=== PATIENT | male | born 1935 | race Caucasian/White ===

== ENCOUNTER 2025-02-18 14:04 | Inpatient (IN) | payer MEDICARE, SELFPAY ==
--- NOTE | ~2025-02-18 | XR_ITS ---
EXAMINATION: XR surgery orthopedic DATE: 02/20/2025 12:21 INDICATION: Cystoscopy TECHNIQUE: Single frontal fluoroscopic image of the pelvis was obtained during procedure performed by Dr. Coles. Radiologist was not present for the imaging or procedure. The amount of fluoroscopy time used during this procedure was 0.1 minutes. Total DAP was 0.342 mGym^2. COMPARISON: None. FINDINGS: Partially visualized right total hip arthroplasty. Moderate bilateral sacroiliac osteoarthr itis. IMPRESSION: 1. Fluoroscopy utilized for reported cystoscopy. See procedure note for further detail. Reviewed, dictated and finalized at location A.
--- NOTE | 2025-02-18 16:08 | P.HP_ITS ---
H&P: HPI History of Present Illness Date/Time: 02/18/25 16:08 Chief Complaint: Hematuria Narrative: 89 y/o M with PMH of diabetes, hypothyroidism, COPD, sick sinus syndrome, PE/DVT (2021), CKD stage 3, and HFpEF presents here with hematuria. The patient presented to [facility] in [place] in 02/17/25 for hematuria. He reports he 1st noticed the blood in his urine on Tuesday or Tuesday, unsure which 1. Upon arrival to the OSH, the patient was bladder scanned which showed greater than [address] [place]oit was placed for continuous bladder irrigation. CT showed a possible mass in the bladder. CBI was continued overnight and the patient and his hemoglobin remained stable. Patient was briefly trialed off CBI this morning, however hematuria returned. Urology was contacted at [facility] who was agreeable to transfer for a cystoscopy. Follows with Sanket COLE for his urological care. The patient currently has no complaints. He denies fever, chills, body aches, suprapubic pain, or abdominal pain at present. Of note, the patient had recent perforated cholecystitis and was admitted to [facility] in [place] from [id number]. Treated with Zosyn and had a percutaneous cholecystostomy drainage catheter placed. Plan for general surgery follow-up on 02/[address] scan and to determine the next steps in his care. The patient reports no knowledge of bladder cancer, however reported at the OSH that there was a bladder spot that was being monitored. VS upon arrival: 98.6, HR 69, R 20, 133/56, and 92% on room air. Review of Systems Review of Systems: All systems reviewed & are unremarkable except as noted in HPI and below [facility] Past Medical History Medical History History of pulmonary embolism Pacemaker 2021 COPD (chronic obstructive pulmonary disease) BPH (benign prostatic hyperplasia) Anxiety and depression Diverticulosis Type 2 diabetes mellitus with chronic kidney disease History of blood clots 2021 RON on CPAP Chronic pain Sleep apnea Hypothyroidism Obesity Peripheral neuropathy Hx of bladder cancer History of anal fissures Chronic kidney disease (CKD) stage G3b/A2, moderately decreased glomerular filtration rate (GFR) between 30-44 mL/min/1.73 square meter and albuminuria creatinine ratio between 30-299 mg/g Essential hypertension Hyperlipidemia LDL goal <100 Surgical History Surgical History H/O heart surgery 08/25/2022 History of arthroscopy of left shoulder 2004 History of bilateral knee replacement 1998 Hx of carpal tunnel repair 1997 Hx of total shoulder replacement 1996 H/O cardiac catheterization 1994 Hx of right inguinal hernia repair 1993 H/O lithotripsy 1991 History of back surgery 1982 Hx of right knee surgery 1974 Family History Family History Sibling Family history of cataracts Family history of arthritis Family history of Alzheimer's disease Father Family history of arthritis Social History Social History Social History: somewhat confident with medical forms 06/22/34 Smoking status: Never smoker Alcohol intake: never Alcohol use details: socially/occasional Substance use: never Substance use type: does not use Do You Feel Safe in your Home?: Yes Lack of Transportation: No Lack of Food: Never True Current Housing: I Have Housing Concerned About Future Housing: No Difficulty Paying Gas/Electric Bills: No Difficulty Paying for Meds: No Currently Unemployed: No Education: High School Diploma/GED Difficulty w/ Childcare or Family Care: No Living arrangements: with family Occupation/Education: retired Spiritual care concerns: No Agree to blood products: Yes Meds Home Medications and Allergies Home Medications ?Medication ?Instructions ?Recorded ?Confirmed ?Type mecobalamin (vitamin B12) 1,000 500 mcg PO DAILY 12/24/19 02/18/25 History mcg chewable tablet multivitamin 1 tablet PO DAILY 12/24/19 02/18/25 History RELION/TRUE MICRO LANC 33G MIS See Rx Instructions .Route 10/03/20 02/18/25 Rx .COMPLEX #200 ea lancets 33 gauge #300 ea 07/22/21 02/18/25 Rx diphenhydramine 25 0.5 tablet PO QHS PRN pain (scale 12/13/22 02/18/25 History mg-acetaminophen 500 mg tablet score 1-3) (Tylenol PM Extra Strength) loratadine 10 mg tablet 10 mg PO DAILY 12/13/22 02/18/25 History cholecalciferol (vitamin D3) 25 5,000 unit PO DAILY 09/28/23 02/18/25 History mcg (1,000 unit) capsule pen needle, diabetic 31 gauge x #180 ea 12/08/23 02/18/25 Rx 5/16 (BD Ultra-Fine Short Pen Needle) True Metrix Glucose Test Strip See Rx Instructions .Route 09/17/24 02/18/25 Rx (blood sugar diagnostic) .COMPLEX #300 ea blood-glucose meter (True Metrix #1 ea 09/17/24 02/18/25 Rx Air Glucose Meter) amlodipine 5 mg tablet 5 mg PO DAILY #90 tabs 10/18/24 02/18/25 Rx escitalopram oxalate 20 mg tablet 20 mg PO DAILY #90 tabs 10/18/24 02/18/25 Rx furosemide 40 mg tablet 20 mg (1/2 x 40 mg) PO DAILY #90 10/18/24 02/18/25 Rx tabs levothyroxine 75 mcg tablet 75 mcg PO QAM #90 tabs 12/25/24 02/18/25 Rx (Synthroid) isosorbide mononitrate 30 mg 30 mg PO DAILY #90 tabs 01/02/25 02/18/25 Rx tablet,extended release 24 hr apixaban 5 mg tablet (Eliquis) 5 mg PO BID #180 tabs 02/04/25 02/18/25 Rx umeclidinium 62.5 mcg-vilanterol 1 inh inhalation DAILY #60 ea 02/04/25 02/18/25 Rx 25 mcg/actuation powdr for inhalation (Anoro Ellipta) albuterol sulfate 90 mcg/actuation 2 puff inhalation Q6H PRN wheezing 02/18/25 02/18/25 History aerosol inhaler insulin lispro protamine-lispro 26 unit subcut BIDWMEAL 02/18/25 02/18/25 History 100 unit/mL (75-25) subcutaneous pen (Humalog Mix 75-25 KwikPen) magnesium oxide 400 mg (241.3 mg 400 mg PO DAILY 02/18/25 02/18/25 History magnesium) tablet rosuvastatin 40 mg tablet 40 mg PO QHS 02/18/25 02/18/25 History Allergies Allergy/AdvReac Type Severity Reaction Status Date / Time iodine Allergy Unknown Diarrhea Verified 12/24/24 10:52 meperidine Allergy Unknown Difficulty Verified 12/24/24 10:52 Swallowing morphine Allergy Unknown Blurry Verified 12/24/24 10:52 Vision Penicillins Allergy Unknown Itching Verified 12/24/24 10:52 clarithromycin (From Biaxin) AdvReac Mild Unknown Verified 12/24/24 10:52 oxycodone AdvReac Mild UNABLE TO Verified 12/24/24 10:52 URINATE MEPERIDINE HCL Allergy Severe ITCHING Uncoded 12/24/24 10:52 Exam Const: General: comfortable and no acute distress Other: , male, elderly, nontoxic appearance HENMT: Face/Nose/Sinus: Normal nares present Mouth: Yes moist mucous membranes Eyes: General: appearance normal, both eyes and all related structures Sclera: sclerae normal Pupils: Equal, round and reactive pupils present EOM: EOMs intact bilaterally Resp: Effort & Inspection: normal respiratory effort Auscultation: clear to auscultation bilaterally Cardio: Rate: regular rate Rhythm: regular rhythm Other: S1-S2 present without murmur, rub, ectopy GI: Other: Abdomen rounded, nontender, mildly firm. Normoactive bowel sounds in all quadrants. : Other: No suprapubic tenderness. Urinary Catheter: Urinary Catheter: patent and draining and urine clear Skin: General skin exam: normal color and no rashes or lesions noted Wounds: no wounds Neuro: Speech: normal speech Motor exam (neuro): 5/5 motor strength present throughout Sensory Exam: normal sensation Other: Mild somnolence, A&O x3 Extrem: General: normal to inspection Psych: Mental Status: mental status grossly normal Affect: normal affect Other: Fair insight and judgment, pleasant. Assessment and Plan Assessment and plan (1) Hematuria: Qualifiers: Hematuria type: gross Qualified Code(s): R31.0 - Gross hematuria Code(s): R31.9 - Hematuria, unspecified Status: Acute Assessment and Plan: Gross hematuria starting on Tuesday or Tuesday (02/16 v 02/17). CBI overnight 420-02/18, reoccurrence with trial off this morning (02/18) Neurology consulted, plan for cystoscopy Continue CBI CT abd/pelvis, OSH on 02/17/2025, impression: 1. There is a masslike irregular thickening involving the posterior inferior bladder wall; this is probably a bladder tumor and would explain the hematuria. This measures 5.5 x 3.6 x 3.9 cm. Cystoscopy is recommended. Mild dilated left ureter and renal collecting system from the bladder tumor. This may require stenting. 2. Percutaneous gallbladder drain successfully decompressed gallbladder. No significant acute inflammatory changes of the gallbladder. There remains nu merous gallstones. No bile duct dilation or bile duct stone. urine culture obtained at [facility], will need follow-up on results (2) Chronic kidney disease (CKD) stage G3b/A2, moderately decreased glomerular filtration rate (GFR) between 30-44 mL/min/1.73 square meter and albuminuria creatinine ratio between 30-299 mg/g: Code(s): N18.3 - Chronic kidney disease, stage 3 (moderate) Status: Acute Assessment and Plan: History of CKD stage 3. Creatinine 1.75, BUN 26 Trend renal function (3) Type 2 diabetes mellitus with chronic kidney disease: Qualifiers: Chronic kidney disease stage: stage 3 (moderate) Chronic kidney disease stage 3 subtype: stage 3b (GFR 30-44) Diabetes mellitus long term care administrator insulin use: with detention use Qualified Code(s): E11.22 - Type 2 diabetes mellitus with diabetic chronic kidney disease; N18.32 - Chronic kidney disease, stage 3b; Z79.4 - long-term (current) use of insulin Code(s): E11.22 - Type 2 diabetes mellitus with diabetic chronic kidney disease Status: Acute Assessment and Plan: hypoglycemia protocol POC blood glucose ACHS correct regimen ordered - moderate dose TIDWM and HS A1C 12% on 12/24/2024 Follows with Melinda COLE for his Endocrine/Diabetes Care (4) Essential hypertension: Code(s): I10 - Essential (primary) hypertension Status: Acute Assessment and Plan: Chronic, currently 133/56 Continue home medications: Amlodipine 5 mg daily, Lasix 50 mg daily, Imdur ER 30 mg daily Monitor. (5) RON on CPAP: Code(s): G47.33 - Obstructive sleep apnea (adult) (pediatric); Z99.89 - Dependence on other enabling machines and devices Status: Acute Assessment and Plan: Continue home CPAP. Plan Diet: Heart healthy GI Prophylaxis: Not currently indicated DVT Prophylaxis: SCD Lines: Peripheral Code Status: Full code Quality VTE Prophylaxis VTE prophylaxis: mechanical ordered If No VTE Prophylaxis Answer both mechanical and pharmacologic: Reason no pharmacologic proph: medical contraindication active bleeding/bleeding risk Hospitalist MIPS Advance Care Plan I have confirmed that the patient's Advanced Care Plan is present, code status is documented, or surrogate decision maker is listed in patient medical record.: Yes Medication Reconciliation I have utilized all available resources to obtain, update and review the patients current medications (includes all prescriptions, OTC, herbals, cannabis, and nutritional supplements).: Yes
--- OUTSIDE RECORDS SUMMARY | 2025-02-18 16:15 | XMS_ITS | Clinical Summary ---
Author Organization [facility] Address [address] [place] [address] Care Team Providers Care Fitness Specialist Name Role Phone Unavailable Primary Care Provider Unavailabl e Source Comments [facility],non-owned Affiliates and Associated Physician Practices is amultiple site organization consisting of ambulatory clinics and hospital sitesin [place], [place], [place] and [place]. This disclosure is being madepursuant to the Care Everywhere program and may not contain all information available regarding this patient. Last updated 18.[facility] Active Problems Problem Noted Date Diagnosed Date Acute renal failure, unspecified acute renal randy lure type 05/23/2024 Sepsis, due to unspecified o rganism, unspecified whether acute organ dysfunction present 05/23/2024 Social History Tobacco Use Types Packs/Day Years Used Date Smoking Tobacco: Never Assessed Sex and Gender Information Value Date Recorded Sex Assigned at Not on file Legal Sex Male 11:12 AM CDT Gender Identity Not on file Sexual Orientation Not on file Plan of Treatment Health Maintenance Due Date Last Done Comments MEDICARE AWV 12 MONTHS 1935 DTAP/TDAP/TD VACCINES (1 - Tdap) 1954 PNEUMOCOCCAL VACCINE 50+ (1 of 1 - PCV) 1985 ZOSTER VACCINE (1 of 2) 1985 Respiratory Syncytial Virus (RSV) Vaccine Pt: or over 60 yrs (1 - 1-dose 75+ series) 2010 COVID-19 VACCINE ( - 2023-2 5 season) 2024 DEPRESSION SCREENING 10/31/2024 INFLUENZA VACCINE (Season Ended) 2025 HEPATITIS B VACCINE Aged Out No longe r eligible based on patient's age to complete this topic HIB VACCINE Aged Out No longer eligi ble based on patient's age to complete this topic HPV VACCINE Aged Out No longer eligi ble based on patient's age to complete this topic MENINGOCOCCAL (Group B) VACC INE SHARED DECISION-MAKING Aged Out No longer eligibl e based on patient's age to complete this topic MENINGOCOCCAL GROUPS A/C/Y/W VACCINE Aged Out No longer eligible b ased on patient's age to complete this topic Insurance MEDICARE [employer]
--- OUTSIDE RECORDS SUMMARY | 2025-02-18 16:15 | XMS_ITS | Encounter Summary ---
Author Organization [facility] Address [facility] [place] [address] Care Team Providers Care [employer] Name Role Phone Arely Mujica PA-C Primary Care Provider [phone] Reason for Referral * (Routine) - New Request Specialty Diagnoses / Procedures Referred By Shelby carreon Referred To Contact Procedures PT Eval and [place] [address] Phone: tel: fax: Referral ID Status Reason Start Date Expiration Date V isits Requested Visits Authorized [id number] New Request 02/18/2025 02/18/2026 1 1 Reason for Visit * Reason Comments Urinary Retention * Auth/Cert (Routine) Specialty Diagnoses / Procedures Referred By Shelby carreon Referred To Contact Diagnoses Urinary retention Urine retention Gross hematuria Bladder mass Procedures N/A Pam Vargas MD [address] [place] [address] Phone: tel:[phone] fax: Referral ID Status Reason Start Date Expiration Date Visits Re quested Visits Authorized [id number] 1 1 Encounter Details Date Type Department Care Team (Latest Contact Info) Description 02/17/2025 8:18 PM CDT - 02/18/2025 4:03 PM CDT Hospital Encounter [facility] Med/Surg [address] [place] [address] Chris Michaels MD [address] [place], [place] [id number] Pam Vargas MD 1 [facility] [place] [address] [phone] (Work) Chip Sloan MD [address] [id number] Amanda Fritz APRN [place], [place] [id number] Urinary Retention Discharge Disposition: Transfer to Acute Care Hospital Social History Tobacco Use Types Packs/Day Years Used Date Smoking Tobacco: Never Smokeless Tobacco: Never Alcohol Use Standard Drinks/Week Comments Yes 13.3 (1 standard drink = 0.6 oz pure alcohol) occasionally OASIS D0700: Social Isolation Answer Da te Recorded Frequency of experiencing loneliness or isolatio n Never 01/23/2025 OASIS A1250: Transportation Answer Date Recorded Lack of Transportation (Medical) No 01/23/2025 Lack of Transportation (Non-Medical) No 01/23/2025 Patient Unable or Declines to Respond No 01/23/2025 OASIS B1300: Health Literacy Answer Brad e Recorded Frequency of needing help to read materials from doctor or pharmacy Never 01/23/2025 B1300 Health Literacy Answer Date Recor ded How often do you need to hav e someone help you when you read instructions, pamphlets, or other written material from your doctor or pharmacy? Often 01/07/2025 [facility] Utilities Answer Date Recorded In the past 12 months has e electric, gas, oil, or water company threatened to shut off services in your home? No 02/18/2025 Humiliation, Afraid, Rape, and Kick questionnair e Answer Date Recorded Within the last year, have y ou been afraid of your partner or ex-partner? No 02/18/2025 Within the last year, have y ou been humiliated or emotionally abused in other ways by your partner or ex-partner? No Within the last year, have y ou been kicked, hit, slapped, or otherwise physically hurt by your partner or ex-partner? No 02/18/2025 Within the last year, have y ou been raped or forced to have any kind of sexual activity by your partner or ex-partner? No 02/18/2025 Social Connection and Isolat ion Panel [NHANES] Answer Date Recorded In a typical week, how many times do you talk on the phone with family, friends, or neighbors? More than three times a week 01/07/2025 How often do you get togethe r with friends or relatives? More than three times a week 01/07/2025 How often do you attend [facility] or jew services? Never 01/07/2025 Do you belong to any clubs o r organizations such as hindu groups, unions, fraternal or athletic groups, or school groups? No 01/07/2025 How often do you attend meet ings of the clubs or organizations you belong to? Never 01/07/2025 Are you , , di vorced, , never , or living with a partner? 01/07/2025 AUDIT-C Answer Date Recorded Q1: How often do you have a drink containing alc ohol? 2-4 times a month 01/07/2025 Q2: How many drinks containi ng alcohol do you have on a typical day when you are drinking? 1 or 2 01/07/2025 Q3: How often do you have si x or more drinks on one occasion? Never 01/07/2025 Overall Financial Resource Strain (CARDIA) Answe r Date Recorded How hard is it for you to pa y for the very basics like food, housing, medical care, and heating? Not very hard 02/18/2025 PHQ-2 Answer Date Recorded Patient Health Questionnaire-2 Score 2 01/07/2025 [facility] Occupat ional Health - Occupational Stress Questionnaire Answer Date Recorded Do you feel stress - tense, restless, nervous, or anxious, or unable to sleep at night because your mind is troubled all the time - these days? Only a little 01/07/2025 Exercise Vital Sign Answer Date Recorde d On average, how many days pe r week do you engage in moderate to strenuous exercise (like a brisk walk)? 0 days 01/07/2025 On average, how many minutes do you engage in exercise at this level? 0 min 01/07/2025 Hunger Vital Sign Answer Date Recorded Within the past 12 months, y ou worried that your food would run out before you got the money to buy more. Never true 02/19/20 25 Within the past 12 months, t he food you bought just didn't last and you didn't have money to get more. Never true 02/18/2025 PRAPARE - Transportation Answer Date Re corded In the past 12 months, has l ack of transportation kept you from medical appointments or from getting medications? No 01/30 In the past 12 months, has l ack of transportation kept you from meetings, work, or from getting things needed for daily living? No 02/18/2025 Housing Stability Vital Sign Answer Brad e Recorded In the last 12 months, was t here a time when you were not able to pay the mortgage or rent on time? No 02/18/2025 In the past 12 months, how m any times have you moved where you were living? 0 02/18/2025 At any time in the past 12 m [facility], were you homeless or living in a halfway (including now)? Yes 02/18/2025 Education Answer Date Recorded What is the highest level of school you have completed or the highest degree you have received? High school graduate 08/03/2022 Sex and Gender Information Value Date Recorded Sex Assigned at Male 01/08/2025 12:31 AM CDT Legal Sex Male 6:48 PM CDT Gender Identity Not on file Sexual Orientation Not on file documented as of this encounter Last Filed Vital Signs Vital Sign Reading Time Taken Comments Blood Pressure 126/60 02/18/2025 11:30 AM CDT Pulse 67 02/18/2025 11:30 AM CDT Temperature 36.9 C (98.4 F) 02/18/2025 11:30 AM CDT Respiratory Rate 18 02/18/2025 11:3 0 AM CDT Oxygen Saturation 95% 02/18/2025 11: 30 AM CDT Inhaled Oxygen Concentration - - Weight 130.3 kg (287 lb 4.2 oz) 02/18/2025 2:56 AM CDT Height 177.8 cm (5' 10 ) 02/18/2025 2:56 AM CDT Body Mass Index 41.22 02/18/2025 2:56 AM CDT documented in this encounter Functional Status * Question Answer Date of Assessment Author Status Do you have serious difficulty walking or climbing stairs? No 02/18/2025 3:42 AM RAGHAVT Ruba Go RN A ctive * Question Answer Date of Assessment Author Status Do you have difficulty dressing or bathing? No 02/18/2025 3:42 AM Ruba Gurrola RN Active Because of a physical, mental, or emotional condition, do you have difficulty doing errands alone such as visiting a doctor's office or shopping? No 02/18/2025 3:42 AM Ruba Gurrola RN Ac tive * Are you deaf or do you have serious difficulty hearing Answer Date of Assessment Author Status No 02/18/2025 3:42 AM Ruba Gurrola RN Active * Are you blind or do you have serious difficulty seeing, even when wearing glasses? Answer Date of Assessment Author Status No 02/18/2025 3:42 AM Ruba Gurrola RN Active * Do you have serious difficulty walking or climbing stairs? Answer Date of Assessment Author Status No 02/18/2025 3:42 AM Ruba Gurrola RN Active * Do you have difficulty dressing or bathing? Answer Date of Assessment Author Status No 02/18/2025 3:42 AM Ruba Gurrola RN Active * Because of a physical, mental, or emotional condition, do you have difficulty doing errands alone such as visiting a doctor's office or shopping? Answer Date of Assessment Author Status No 02/18/2025 3:42 AM Ruba Gurrola RN Active * Question Answer Date of Assessment Author Status Are you deaf or do you have serious difficulty hearing No 02/18/2025 3:42 AM Ruba Gurrola RN Ac tive Are you blind or do you have serious difficulty seeing, even when wearing glasses? No 02/18/2025 3:42 AM Ruba Gurrola RN Ac tive * Calculated C-SSRS Risk Score (Lifetime/Recent) Answer Date of Assessment Author Status No Risk Indicated 02/18/2025 3:12 AM Hillary Gurrola RN Active * [place] Suicide Severity Rating Scale (Screener/Recent Self-Report) Question Answer Date of Assessment Author Status 1. Wish to be (Past 1 Month) No 02/18/2025 3:12 AM Ruba Gurrola RN Ac tive 2. Non-Specific Active Suicidal Thoughts (Past 1 Month) No 02/18/2025 3:12 AM Ruba Gurrola RN Ac tive 6. Suicidal Behavior (Lifetime) No 02/18/2025 3:12 AM Ruba Gurrola RN Ac tive documented as of this encounter Mental Status * Question Answer Entry Date Author Status Because of a physical, mental, or emotional condition, do you have serious difficulty concentrating, remembering, or making decisions? No 02/18/2025 3:42 AM Ruba Gurrola RN Active * Because of a physical, mental, or emotional condition, do you have serious difficulty concentrating, remembering, or making decisions? Answer Entry Date Author Status No 02/18/2025 3:42 AM Ruba Gurrola RN Active documented in this encounter Medications at Time of Discharge albuterol sulfate HFA 108 (90 Base) MCG/ACT inhalerIndicatio ns:COPD exacerbation, complicated Inhale 2 puffs into the lungs every 6 (six) hours as needed for Wheezing. 18 g 6 12/05/2023 amLODIPine (NORVASC) 5 MG tabletIndication s:Hypertension Take 1 tablet (5 mg total) by mouth daily. 30 tablet 06/13/2024 apixaban (ELIQUIS) 5 MG tabletIndication s:Anticoagulant Therapy Take 1 tablet (5 mg total) by mouth 2 (two) times daily. Indications: Anticoagulant Therapy 60 tablet 6 08/31/2023 Cyanocobalamin (VITAMIN B 12) 500 MCG TabIndications:V ITAMIN Take 1 tablet by mouth daily. Indications: VITAMIN 08/30/2022 escitalopram (LEXAPRO) 20 MG tabletIndication s:Depression Take 1 tablet (20 mg total) by mouth every morning. Indications: Depression furosemide (LASIX) 20 MG tabletIndication s:Diuretic Therapy Take 1 tablet (20 mg total) by mouth daily. Indications: Treatment with Diuretic Therapy 90 tablet 2 08/01/2024 insulin lispro prot & lispro (HUMALOG MIX 75-25) (75-25) 100 UNIT/ML injection (PEN) Inject 26 Units into the skin 2 (two) times a day. isosorbide mononitrate ER 30 MG 24 hr tabletIndication s:Angina Pectoris Take 1 tablet (30 mg total) by mouth daily. Indications: Angina Pectoris 12/21/2018 loratadine (CLARITIN) 10 MG tabletIndication s:Allergic Reaction Take 1 tablet (10 mg total) by mouth daily. Indications: Allergic Reaction magnesium oxide (MAG-OX) 400 (240 Mg) MG tabletIndication s:Hypomagnesemia Take 1 tablet (400 mg total) by mouth daily. 30 tablet 01/18/2025 Multiple Vitamin tabletIndication s:SUPPLEMENT Take 1 tablet by mouth daily. Indications: SUPPLEMENT 08/30/2022 rosuvastatin (CRESTOR) 40 MG tabletIndication s:Hyperlipidemia Take 1 tablet (40 mg total) by mouth nightly at bedtime. Indications: High Amount of Fats in the Blood 06/26/2024 SYNTHROID 75 MCG tabletIndication s:Hypothyroidism Take 1 tablet (75 mcg total) by mouth every morning. Indications: Underactive Thyroid 12/21/2018 umeclidinium-gurpreet anterol (ANORO ELLIPTA) 62.5-25 MCG/ACT inhalerIndicatio ns:COPD exacerbation, complicated Inhale 1 puff into the lungs daily. 60 each 6 12/05/2023 vitamin D3, cholecalciferol, 1000 UNIT Tab tabletIndication s:MVI Take 5 tablets (5,000 Units total) by mouth daily. Indications: MVI 08/30/2022 vitamin K2 (MENAQUINONE) 100 MCG Cap capsuleIndicatio ns:Vitamin Deficiency Take by mouth once. Indications: Vitamin Deficiency acetaminophen (TYLENOL) 500 MG tabletIndication s:Pain Take 0.5 tablets (250 mg total) by mouth nightly as needed for Pain. Indications: Pain 06/13/2024 polyethylene glycol (GLYCOLAX) 17 GM/SCOOP powderIndication s:Constipation Take 17 g by mouth daily as needed. Indications: Constipation 15 g 01/17/2025 documented as of this encounter Progress Notes * Carlene Terry - 02/18/2025 1:03 PM CDT Patient assessed for emotional/spiritual needs and well-being; role of Spiritual Care explained. Patient's Disposition/People present: patient Adventist Affiliation/Spiritual Background: Methodist \ [place] community: [address] Notification of ira community desired: Yes, hindu has been notified Sacraments: Patient informed of the availability of the Sacraments of Communion, Anointing of the Sick, and Reconciliation. Patient informed of services available on TV. Patient requested communion Needs identified: active listening Interventions: emotional support Patient is concerned about his health and why this is happening. Follow up Needed: Yes Follow up needs include daily communion. Health care directive: patient has in chart. Patient has received communion today. * Meg Hardin, PT - 02/18/2025 11:22 AM CDT PT eval attempted at 1120 but pt getting bladder irrigation and declined mobility at this time. Will attempt eval this pm if able. * Marj Patel RN - 02/18/2025 8:03 AM CDT 02/18/25 0746 Referral Data Source of Information Patient Patient Information Primary Caregiver Self Current living Situation Alone Type of Residence Private residence Support System Immediate family;Spouse/Significant Other Are you employed? Retired Recent Hospitalization Recent Hospitalization within 30 days Yes Baseline ADL's Functional Status Independent Active DME CPAP Behavior Oriented;Cooperative Communication Understands speaking;Understands Samoan;Talks Current Services Being Provided Home Health halfway;Physical therapy;Occupational therapy DC screening tool This is a screening tool it does not take the place of a physical or occupational therapy evaluation. The screening is to screen the patient for what services and destination would be beneficial for patient for next level of care Conversation with the patient/family;Chart Review Will the patient be returning to prior living situation with no new identified needs? Yes Based on the screening the DC plan for consideration is: Patient expects to be discharged to: Home with home health care Adequate Resources Available Adequate Resources Yes NCM performed bedside interview: spoke with patient, verified and address Support: family Home: lives alone, spouse is in a snf, plans to return home after discharge Ambulation: Independent prior to admission DME products: cpap, has a cane and walker but does not use either ADLs: Independent prior to admission. Transport Home: family Skin/Bladder/Bowel: No deficits A/O: A&O x4 Communication: No deficits Home Health: current [facility], notified of admission to hospital Occupation: retired Pharmacy: [facility] Financial Concerns: none PCP/Insurance Plan: Sil/Medicare & AARP Discharge needs: Care Coordination Team will provide discharge planning as needed, and will re-evaluate based on recommendations and treatment course. 245pm Patient transferring to [facility], [facility] ambulance set up for 315-330pm, RNCM notified both charge and patient's nurse. documented in this encounter Nursing Notes * Marline Mendieta RN - 02/18/2025 3:17 PM CDT Called report to Sujata at [facility]. Pt going to room 324 bed 2 * Barb Welch RN - 02/18/2025 2:45 PM CDT This RN contacted daughter and updated her that patient was accepted at [facility] and will be leaving via ambulance around 3:15p * Marline Mendieta RN - 02/18/2025 10:52 AM CDT CBI started as ordered. documented in this encounter ED Notes * Chris Michaels MD - 02/17/2025 8:31 PM CDT [facility] EMERGENCY DEPARTMENT NOTE Patient Name: Isaac Hernandez Date of : 1935 Date of Service: 02/17/2025 Provider at Bedside Date/Time Event User Comments 02/17/252020 Provider at Bedside Assessing Patient CHRIS MICHAELS -- Chief Complaint Patient presents with Urinary Retention HISTORY OF PRESENT ILLNESS Patient is a 89-year-old male. Patient presents with hematuria, urinary retention. Patient seen here 8 hours ago with painless gross hematuria. Found to have a likely bladder mass. Patient has a history of bladder cancer, has beenhaving annual cystoscopies which have been clear, most recent was in October. Went home and since then has had difficulty urinating, now is just dribbling blood when he tries to urinate. He has history of pulmonary embolism and is on Eliquis. No nausea or vomiting. Eating and drinking like normal. Had a regular Easter dinner today. Patient admitted here several weeks ago had cholecystostomy tube placed, no issues with this, scheduled to be removed next week. REVIEW OF SYSTEMS Review of Systems Constitutional: Negative for chills and fever. HENT: Negative for nosebleeds and sore throat. Eyes: Negative for visual disturbance. Respiratory: Negative for shortness of breath. Cardiovascular: Negative for chest pain. Gastrointestinal: Negative for constipation, diarrhea, nausea and vomiting. Genitourinary: Positive for hematuria. Negative for dysuria and urgency. Musculoskeletal: Negative for back pain and myalgias. Skin: Negative for rash. Neurological: Negative for dizziness and numbness. Psychiatric/Behavioral: Negative for suicidal ideas. All other systems reviewed and are negative. PAST HISTORY Past Medical History: Past Medical History[1] Past Surgical History: Past Surgical History[2] Social History: Social History Tobacco Use Smoking status: Never Smokeless tobacco: Never Substance Use Topics Alcohol use: Yes Alcohol/week: 13.3 standard drinks of alcohol Types: 8 Cans of beer per week Comment: occasionally Family History: Family History[3] Medications: The patient's home medications section has been reviewed. Prior to Admission medications Medication Sig Start Date End Date Taking? Authorizing Provider acetaminophen (TYLENOL) 500 MG tablet Take 0.5 tablets (250 mg total) by mouth nightly as needed for Pain. Indications: Pain 06/13/24 Doc [facility] Abstract albuterol sulfate HFA 108 (90 Base) MCG/ACT inhaler Inhale 2 puffs into the lungs every 6 (six) hours as needed for Wheezing. 12/05/23 Nam Velasco DO amLODIPine (NORVASC) 5 MG tablet Take 1 tablet (5 mg total) by mouth daily. 06/13/24 Bong Small MD apixaban (ELIQUIS) 5 MG tablet Take 1 tablet (5 mg total) by mouth 2 (two) times daily. Indications: Anticoagulant Therapy 08/31/23 Javi Joseph MD cefdinir (OMNICEF) 300 MG Cap capsule Take 1 capsule (300 mg total) by mouth 2 (two) times daily. Indications: Salivary Gland Inflammation 01/22/25 Chip Sloan MD Cyanocobalamin (VITAMIN B 12) 500 MCG Tab Take 1 tablet by mouth daily. Indications: VITAMIN 08/30/22 David Hope MD escitalopram (LEXAPRO) 20 MG tablet Take 1 tablet (20 mg total) by mouth every morning. Indications: Depression Default History Genericprovider furosemide (LASIX) 20 MG tablet Take 1 tablet (20 mg total) by mouth daily. Indications: Treatment with Diuretic Therapy 08/01/24 Javi Joseph MD insulin lispro prot & lispro (HUMALOG MIX 75-25) (75-25) 100 UNIT/ML injection (PEN) Inject 10 Units into the skin daily. Indications: Diabetes 20 units in AM and 10 units in PM Patient taking differently: Inject 10 Units into the skin see administration instructions. Indications: Diabetes 26 units in AM and 26 units in PM 06/12/24 Bong Small MD isosorbide mononitrate ER 30 MG 24 hr tablet Take 1 tablet (30 mg total) by mouth daily. Indications: Angina Pectoris 12/21/18 Doc [facility] Abstract loratadine (CLARITIN) 10 MG tablet Take 1 tablet (10 mg total) by mouth daily. Indications: Allergic Reaction Default History Genericprovider magnesium oxide (MAG-OX) 400 (240 Mg) MG tablet Take 1 tablet (400 mg total) by mouth daily. 01/18/25 Chip Sloan MD Multiple Vitamin tablet Take 1 tablet by mouth daily. Indications: SUPPLEMENT 08/30/22 David Hope MD polyethylene glycol (GLYCOLAX) 17 GM/SCOOP powder Take 17 g by mouth daily as needed. Indications: Constipation 01/17/25 Chip Sloan MD rosuvastatin (CRESTOR) 40 MG tablet Take 1 tablet (40 mg total) by mouth nightly at bedtime. Indications: High Amount of Fats in the Blood 06/26/24 Default History Genericprovider SYNTHROID 75 MCG tablet Take 1 tablet (75 mcg total) by mouth every morning. Indications: Underactive Thyroid 12/21/18 Doc [facility] Abstract umeclidinium-vilanterol (ANORO ELLIPTA) 62.5-25 MCG/ACT inhaler Inhale 1 puff into the lungs daily.12/05/23 Nam Velasco DO vitamin D3, cholecalciferol, 1000 UNIT Tab tablet Take 5 tablets (5,000 Units total) by mouth daily. Indications: MVI 08/30/22 David Hope MD vitamin K2 (MENAQUINONE) 100 MCG Cap capsule Take by mouth once. Indications: Vitamin Deficiency Default History Genericprovider Allergies: Review of patient's allergies indicates: Allergen Reactions Meperidine Itching Morphine Itching Oxycodone Itching Penicillins Unknown Tolerated amoxicillin April 2022 Iodine Rash PHYSICAL EXAM Patient Vitals for the past 24 hrs: BP Temp Temp src Pulse Resp SpO2 Height Weight 02/18/25 0120 (!) 165/90 -- -- 80 18 95 % -- -- 02/18/25 0000 (!) 167/79 -- -- 86 18 95 % -- -- 02/17/25 2300 (!) 161/76 -- -- 88 18 93 % -- -- 02/17/25 2200 (!) 150/88 -- -- 78 18 92 % -- -- 02/17/252017 129/54 98.4 ??F (36.9 ??C) Temporal 70 18 94 % -- -- 02/17/252014 -- -- -- -- -- -- 1.778 m (5' 10 ) 130.6 kg (287 lb 14.7 oz) Physical Exam Constitutional: General: He is not in acute distress. Appearance: He is well-developed. Comments: Seated comfortably in wheelchair, no acute distress HENT: Head: Normocephalic and atraumatic. Mouth/Throat: Mouth: Mucous membranes are moist. Eyes: Conjunctiva/sclera: Conjunctivae normal. Cardiovascular: Rate and Rhythm: Normal rate and regular rhythm. Pulmonary: Effort: Pulmonary effort is normal. Breath sounds: Normal breath sounds. Abdominal: General: There is no distension. Palpations: Abdomen is soft. Comments: Mild lower abdominal tenderness Musculoskeletal: General: No deformity. Cervical back: Neck supple. Skin: General: Skin is warm and dry. Neurological: General: No focal deficit present. Mental Status: He is alert and oriented to person, place, and time. Psychiatric: Mood and Affect: Mood normal. DIAGNOSTIC DATA Labs Results for orders placed or performed during the hospital encounter of 02/17/25 CBC W/DIFF AUTOMATED Result Value Ref Range WBC 8.19 4.4 - 11.0 x10'3/uL RBC 4.08 (L) 4.50 - 5.90 x10'6/uL HGB 12.3 (L) 14.0 - 17.5 G/DL HCT 37.7 (L) 41.5 - 50.4 % MCV 92.4 80.0 - 96.0 FL MCH 30.1 26.5 - 31.4 PG MCHC 32.6 31.9 - 34.8 G/DL RDW 13.5 12.3 - 14.3 % PLT 249 151 - 353 x10'3/uL MPV 8.8 (L) 9.7 - 11.9 FL RBC MORPHOLOGY NORMAL PLT MORPH. NORMAL WBC MORPHOLOGY NORMAL LYMPHOCYTES % 12.7 (L) 15.8 - 45.0 % NEUTROPHILS % 68.2 42.1 - 71.9 % MONOCYTES % 15.1 (H) 5.7 - 12.5 % EOSINOPHILS 2.6 0.0 - 5.6 % BASOPHILS 0.7 0.0 - 1.3 % ABS. NEUTROPHILS 5.58 1.40 - 6.00 x10'3/uL IMMATURE GRANS % 0.7 (H) 0.0 - 0.5 % ABS. LYMPHOCYTES 1.04 0.80 - 4.70 x10'3/uL BASIC METABOLIC PANEL Result Value Ref Range GLUCOSE 181 (H) 70 - 99 MG/DL BUN 29 (H) 7 - 18 MG/DL CREATININE S/P/B 1.87 (H) 0.7 - 1.3 MG/DL SODIUM S/P/B 134 (L) 136 - 145 MMOL/L POTASSIUM S/P/B 4.6 3.5 - 5.1 MMOL/L CHLORIDE S/P/B 99 (L) 100 - 108 MMOL/L CO2 28.1 21 - 32 MMOL/L CALCIUM S/P/B 9.1 8.5 - 10.1 MG/DL ANION GAP 6.9 5 - 15 MMOL/L BUN CREATININE RATIO 15.5 6 - 26 GFR ESTIMATE 34 (L) >90 ML/MIN/1.73 M2 If applicable, laboratory results above were independently viewed and interpreted by me. Imaging No orders to display If applicable, imaging results above were independently viewed and interpreted by me. EKG No results found for this visit on 02/17/25. If applicable, EKG contemporaneously interpreted by me, and treatment decisions made in real time based on this interpretation. MEDICATIONS GIVEN IN ED Medications ondansetron (ZOFRAN) injection 4 mg (has no administration in time range) acetaminophen (TYLENOL) tablet 650 mg (has no administration in time range) polyethylene glycol (GLYCOLAX) packet 17 g (has no administration in time range) insulin lispro (HUMALOG/ADMELOG) injection 0-14 Units (has no administration in time range) And insulin lispro (HUMALOG/ADMELOG) injection 0-7 Units (has no administration in time range) cefTRIAXone (ROCEPHIN) 2 g in sterile water 20 mL IV (has no administration in time range) MEDICAL DECISION MAKING MDM Number of Diagnoses or Management Options Bladder mass Gross hematuria Urinary retention Diagnosis management comments: Beonit catheter placed, required coud?? placement with nearly 1000 ccof gross hematuria obtained. This was then replaced with a three-way catheter and continuous bladder irrigation was initiated. Labs sent and reviewed, stable since labs this morning, no significant blood loss or renal insufficiency. No evidence of sepsis in the ED. After CBI, gross hematuria has cleared, however patient remains weak, he is frail, lives alone. He will be admitted for further management. At this time, there is no urgent need for urology consult. Case discussed with hospitalist Dr. Vargas 0210 who accepts patient for admission. Additional History Source Other Than Patient: Daughter Review of External Records: Discharge summary from [facility] last month Social Determinants of Health Significantly Impacting Care: Patient with ongoing challenges regarding health management due to: Lack of access to medical care Chronic Illness Impacting Care: CKD, hypertension, diabetes, pulmonary embolism Differential diagnosis considered include but are not limited to: Urinary retention, acute kidney failure, metabolic derangement, hemorrhagic bladder mass Discussion of Management with Other Providers: Hospitalist Sam IMPRESSION AND DISPOSITION CLINICAL IMPRESSION: Clinical Impression Urinary retention (Primary) Gross hematuria Bladder mass Disposition: Admit Prescriptions: Current Discharge Medication List Chris Michaels MD To patients reading this note: Please be advised that the primary purpose of this note is to communicate with your current and future medical teams. Standard sentence structure is not always used. Medical terminology and abbreviations are often used. This document was generated in part using voice recognition software, occasional wrong-word or ???sound-alike?? substitutions may have occurred due to the inherent limitations of voice recognition software. Read the chart carefully and recognize, using context, where these substitutions have occurred. [1] Past Medical History: Diagnosis Date Acute respiratory failure with hypoxemia ([facility]) Arthritis CKD (chronic kidney disease), stage III ([facility]) COVID-19 vaccine series completed 01/29/2021 CPAP (continuous positive airway pressure) dependence Diabetes mellitus ([facility]) Hypothyroidism Hypothyroidism Obstructive sleep apnea Pulmonary embolism ([facility]) On Eliquis Rash chest - sees software verification engineer S/P placement of cardiac pacemaker 08/26/2022 Sleep apnea SSS (sick sinus syndrome) ([facility]) s/p pacemaker placement [2] Past Surgical History: Procedure Laterality Date ABDOMINAL SURGERY BACK SURGERY CARPAL TUNNEL RELEASE COLONOSCOPY N/A 08/01/2019 COLONOSCOPY WITH REMOVAL OF POLYPS AND APPLICATION OF RESOLUTION CLIPS performed by Sophia Byrnes [facility] OR COLONOSCOPY STOMA RMVL LES BY HOT BIOPSY FORCEPS 07/19/2018 F/u 1 year HERNIA REPAIR JOINT REPLACEMENT REPLACEMENT TOTAL KNEE Bilateral SHOULDER SURGERY Bilateral Replacement TRANSURETHRAL INCISION OF PROSTATE [3] Family History Problem Relation Name Age of Onset Colon Cancer Brother Chris Michaels MD 02/18/25 0256 * Liza Ferguson RN - 02/17/2025 8:11 PM CDT Pt arrives to ed via pov c/o inability to urinate. Pt was seen in this er earlier for c/o bloody urine and was d.c. pt returned home and has not been able to urinate since being discharge despite multiple attempts. Does c/o feeling of pressure in pelvic area. Pt also has not taken his insulin and has has multiple sugary beverages. Denies sob, cp. documented in this encounter Plan of Treatment Upcoming Encounters Date Type Department Care Team (Late st Contact Info) Description 02/22/2025 8:00 AM CDT Home Care Visit [address] [place] [address] [place] [address] Tara Dunne RN [phone] (Work) 02/25/2025 7:00 AM CDT Home Care Visit [address] [place] [address] [place] [address] Sandra Neves LPN 02/26/2025 10:30 AM CDT App[facility]ment [facility] [place] [address] José Miguel Daugherty MD [address] [place] [address], [address] [place], [place] [address] 02/26/2025 12:00 PM CDT App[facility]ment [facility] [place] [address] José Miguel Daugherty MD [facility], [address] [place] [address] 03/01/2025 8:00 AM CDT Home Care Visit [address] [place] [address] [place] [address] Tara Dunne RN [phone] (Work) 03/25/2025 2:20 PM CDT Allied Health/Nurse Visit [facility], [facility] [address] [place] [address] Chip Hansen MD [facility]. [facility] [address] [place] [address] 08/05/2025 2:40 PM CDT Office Visit [facility] [id number] [place] [address] Nam Velasco DO [address] [facility] [address] [place] [address] 08/14/2025 12:30 PM CDT Office Visit [facility] [address] [phone] Javi Joseph MD [facility]. [facility] [address] [place] [address] Scheduled Orders Name Type Priority Associated Diagnoses Orde r Schedule CBC W/DIFF AUTOMATED Lab Routine Faisal rrow (early AM pickups) for 1 Occurrences starting 02/19/2025 until 02/19/2025 BASIC METABOLIC PANEL Lab Routine Homero orrow (early AM pickups) for 1 Occurrences starting 02/19/2025 until 02/19/2025 documented as of this encounter Goals Goal Patient Goal Type Associated Problems Recent Progress Patient-Stated? Author Health - patient able to perform ADLs independently General No Vanessa Bhat RN Safety - demonstrates understanding of home safety measures Lifestyle No Gabriella Oneill RN Safety - demonstrates understanding of home safety measures Lifestyle No Gabriella Oneill, bituminous distributor operator - family caregiver with be involved in care transitions and discharge planning Lifestyle No Marj Patel RN Family - family caregiver with be involved in care transitions and discharge planning Lifestyle No Kristina Rees RN documented as of this encounter Procedures Procedure Name Priority Date/Time Associated Diagnosis Comments HEMOGLOBIN AND HEMATOCRIT TIMED 02/18/2025 3:27 PM CDT POCT GLUCOSE - BORGES DOCKED DEVICE Routine 02/18/2025 11:27 AM CDT POCT GLUCOSE - BORGES DOCKED DEVICE Routine 02/18/2025 7:46 AM CDT COMPREHENSIVE METABOLIC PANEL STAT 02/18/2025 5:33 AM CDT CBC W/DIFF AUTOMATED STAT 02/18/2025 5:33 AM CDT MAGNESIUM STAT 02/18/2025 5:33 AM CDT BASIC METABOLIC PANEL STAT 02/17/2025 10:15 PM CDT CBC W/DIFF AUTOMATED STAT 02/17/2025 10:15 PM CDT documented in this encounter Results * (ABNORMAL) HEMOGLOBIN AND HEMATOCRIT (02/18/2025 3:27 PM CDT) HGB 11.4(L) 14.0 - 17.5 G/DL 02/18/2025 3:31 PM CDT [facility] HCT 33.7(L) 41.5 - 50.4 % 02/18/2025 3:31 PM CDT [facility] 02/18/2025 3:27 PM CDT Amanda Fritz MANAGER INTELLIGENCE LABORATORY Final Result Performing Organization Address City/[facility]/ZIP Co de Phone Number [facility] [address] [place] [address], [place] [phone] * (ABNORMAL) POCT glucose (02/18/2025 11:27 AM CDT) GLUCOSE POC 194(H) 70 - 110 mg/dL 02/18/2025 11:56 AM CDT [facility] 02/18/2025 11:2 7 AM CDT Amanda Fritz MANAGER INTELLIGENCE POCT ORDERABLES - DEVICE Final Result Performing Organization Address [facility] Co de Phone Number [facility] [address] [place] [address], [place] [phone] * (ABNORMAL) POCT glucose (02/18/2025 7:46 AM CDT) GLUCOSE POC 168(H) 70 - 110 mg/dL 02/18/2025 8:26 AM CDT [facility] 02/18/2025 7:46 AM CDT Amanda Fritz MANAGER INTELLIGENCE POCT ORDERABLES - DEVICE Final Result Performing Organization Address City/[facility]/ZIP Co de Phone Number [facility] [address] [place] [address], [place] [phone] * MAGNESIUM (02/18/2025 5:33 AM CDT) MAGNESIUM 1.8 1.8 - 2.4 MG/DL 02/18/2025 6:23 AM CDT [facility] 02/18/2025 5:33 AM CDT us Pam Vargas MD LABORATORY Final Result [facility] [address] [place] [address], [place] [phone] * (ABNORMAL) COMPREHENSIVE METABOLIC PANEL (02/18/2025 5:33 AM CDT) [facility] GLUCOSE 185(H) 70 - 99 MG/DL 02/18/2025 6:23 AM CDT [facility] BUN 23(H) 7 - 18 MG/DL 02/18/2025 6:23 AM CDT [facility] CREATININE S/P/B 1.76(H) 0.7 - 1.3 MG/DL 02/18/2025 6:23 AM CDT [facility] SODIUM S/P/B 138 136 - 145 MMOL/L 02/18/2025 6:23 AM CDT [facility] POTASSIUM S/P/B 4.3 3.5 - 5.1 MMOL/L 02/18/2025 6:23 AM T [facility] CHLORIDE S/P/B 100 100 - 108 MMOL/L 02/18/2025 6:23 AM T [facility] CO2 29.9 21 - 32 MMOL/L 02/18/2025 6:23 AM T [facility] CALCIUM S/P/B 9.0 8.5 - 10.1 MG/DL 02/18/2025 6:23 AM T [facility] BILIRUBIN TOTAL S/P/B 0.8 0.2 - 1.2 MG/DL 02/18/2025 6:23 AM CDT [facility] TOTAL PROTEIN S/P/B 6.3(L) 6.4 - 8.2 G/DL 02/18/2025 6:23 AM CDT [facility] ALBUMIN S/P/B 2.5(L) 3.4 - 5.0 G/DL 02/18/2025 6:23 AM T [facility] AST 15 15 - 37 U/L 02/18/2025 6:23 AM T [facility] ALT 25 16 - 60 U/L 02/18/2025 6:23 AM T [facility] ALKALINE PHOSPHATASE S/P/B 76 50 - 136 U/L 02/18/2025 6:23 AM T [facility] ANION GAP 8.1 5 - 15 MMOL/L 02/18/2025 6:23 AM T [facility] BUN CREATININE RATIO 13.1 6 - 26 02/18/2025 6:23 AM [facility] A/G RATIO 0.7(L) 1.0 - 2.0 RATIO 02/18/2025 6:23 AM T [facility] GFR ESTIMATE 37(L) >90 ML/MIN/1.7 3 M2 02/18/2025 6:23 AM T [facility] Comment: NOTE: eGFR is not calculated for patients <18 years of age. This is an estimated GFR calculation using the new CKD EPI creatinine equation without race and so does not require a correction factor for race. This estimated GFR should not be used for calculating drug doses. 02/18/2025 5:33 AM CDT us Pam Vargas MD LABORATORY Final Result [facility] [address] [facility] [place] [address], [place] [phone] * (ABNORMAL) CBC W/DIFF AUTOMATED (02/18/2025 5:33 AM CDT) WBC 7.87 4.4 - 11.0 x10'3/uL 02/18/2025 6:04 AM T [facility] RBC 3.92(L) 4.50 - 5.90 x10'6/uL 02/18/2025 6:04 AM T [facility] HGB 11.9(L) 14.0 - 17.5 G/DL 02/18/2025 6:04 AM T [facility] HCT 35.9(L) 41.5 - 50.4 % 02/18/2025 6:04 AM T [facility] MCV 91.6 80.0 - 96.0 FL 02/18/2025 6:04 AM T [facility] MCH 30.4 26.5 - 31.4 PG 02/18/2025 6:04 AM T [facility] MCHC 33.1 31.9 - 34.8 G/DL 02/18/2025 6:04 AM [facility] RDW 13.4 12.3 - 14.3 % 02/18/2025 6:04 AM [facility] PLT 248 151 - 353 x10'3/uL 02/18/2025 6:04 AM [facility] MPV 9.0(L) 9.7 - 11.9 FL 02/18/2025 6:04 AM T [facility] RBC MORPHOLOGY NORMAL 02/18/2025 6:04 AM T [facility] PLT MORPH. NORMAL 02/18/2025 6:04 AM [facility] WBC MORPHOLOGY NORMAL 02/18/2025 6:04 AM [facility] LYMPHOCYTES % 13.2(L) 15.8 - 45.0 % 02/18/2025 6:04 AM [facility] NEUTROPHILS % 68.5 42.1 - 71.9 % 02/18/2025 6:04 AM CDT [facility] MONOCYTES % 14.6(H) 5.7 - 12.5 % 02/18/2025 6:04 AM CDT [facility] EOSINOPHILS 2.8 0.0 - 5.6 % 02/18/2025 6:04 AM CDT [facility] BASOPHILS 0.5 0.0 - 1.3 % 02/18/2025 6:04 AM CDT [facility] ABS. NEUTROPHILS 5.39 1.40 - 6.00 x10'3/uL 02/18/2025 6:04 AM CDT [facility] IMMATURE GRANS % 0.4 0.0 - 0.5 % 02/18/2025 6:04 AM CDT [facility] ABS. LYMPHOCYTES 1.04 0.80 - 4.70 x10'3/uL 02/18/2025 6:04 AM CDT [facility] 02/18/2025 5:33 AM CDT us Pam Vargas MD LABORATORY Final Result Performing Organization Address City/State/[facility] Co de Phone Number [facility] [address] [place] [address], * (ABNORMAL) BASIC METABOLIC PANEL (02/17/2025 10:15 PM CDT) Pathologist [facility] GLUCOSE 181(H) 70 - 99 MG/DL 02/17/2025 10:37 PM CDT [facility] BUN 29(H) 7 - 18 MG/DL 02/17/2025 10:37 PM CDT [facility] CREATININE S/P/B 1.87(H) 0.7 - 1.3 MG/DL 02/17/2025 10:37 PM CDT [facility] SODIUM S/P/B 134(L) 136 - 145 MMOL/L 02/17/2025 10:37 PM CDT [facility] POTASSIUM S/P/B 4.6 3.5 - 5.1 MMOL/L 02/17/2025 10:37 PM CDT [facility] CHLORIDE S/P/B 99(L) 100 - 108 MMOL/L 02/17/2025 10:37 PM CDT [facility] CO2 28.1 21 - 32 MMOL/L 02/17/2025 10:37 PM CDT [facility] CALCIUM S/P/B 9.1 8.5 - 10.1 MG/DL 02/17/2025 10:37 PM CDT [facility] ANION GAP 6.9 5 - 15 MMOL/L 02/17/2025 10:37 PM CDT [facility] BUN CREATININE RATIO 15.5 6 - 26 02/17/2025 10:37 PM CDT [facility] GFR ESTIMATE 34(L) >90 ML/MIN/1.7 3 M2 02/17/2025 10:37 PM CDT [facility] Comment: NOTE: eGFR is not calculated for patients <18 years of age. This is an estimated GFR calculation using the new CKD EPI creatinine equation without race and so does not require a correction factor for race. This estimated GFR should not be used for calculating drug doses. 02/17/2025 10:1 5 PM CDT us Chris Michaels MD LABORATORY Final Resul t [facility] [address] [place] [address], [place] [phone] * (ABNORMAL) CBC W/DIFF AUTOMATED (02/17/2025 10:15 PM CDT) [facility] Signature WBC 8.19 4.4 - 11.0 x10'3/uL 02/17/2025 10:40 PM CDT [facility] RBC 4.08(L) 4.50 - 5.90 x10'6/uL 02/17/2025 10:40 PM CDT [facility] HGB 12.3(L) 14.0 - 17.5 G/DL 02/17/2025 10:40 PM CDT [facility] HCT 37.7(L) 41.5 - 50.4 % 02/17/2025 10:40 PM CDT [facility] MCV 92.4 80.0 - 96.0 FL 02/17/2025 10:40 PM CDT [facility] MCH 30.1 26.5 - 31.4 PG 02/17/2025 10:40 PM CDT [facility] MCHC 32.6 31.9 - 34.8 G/DL 02/17/2025 10:40 PM CDT [facility] RDW 13.5 12.3 - 14.3 % 02/17/2025 10:40 PM T [facility] PLT 249 151 - 353 x10'3/uL 02/17/2025 10:40 PM CDT [facility] MPV 8.8(L) 9.7 - 11.9 FL 02/17/2025 10:40 PM CDT [facility] RBC MORPHOLOGY NORMAL 02/17/2025 10:40 PM CDT [facility] PLT MORPH. NORMAL 02/17/2025 10:40 PM T [facility] WBC MORPHOLOGY NORMAL 02/17/2025 10:40 PM CDT [facility] LYMPHOCYTES % 12.7(L) 15.8 - 45.0 % 02/17/2025 10:40 PM CDT [facility] NEUTROPHILS % 68.2 42.1 - 71.9 % 02/17/2025 10:40 PM CDT [facility] MONOCYTES % 15.1(H) 5.7 - 12.5 % 02/17/2025 10:40 PM CDT [facility] EOSINOPHILS 2.6 0.0 - 5.6 % 02/17/2025 10:40 PM CDT [facility] BASOPHILS 0.7 0.0 - 1.3 % 02/17/2025 10:40 PM CDT [facility] ABS. NEUTROPHILS 5.58 1.40 - 6.00 x10'3/uL 02/17/2025 10:40 PM CDT [facility] IMMATURE GRANS % 0.7(H) 0.0 - 0.5 % 02/17/2025 10:40 PM CDT [facility] ABS. LYMPHOCYTES 1.04 0.80 - 4.70 x10'3/uL 02/17/2025 10:40 PM CDT [facility] 02/17/2025 10:1 5 PM CDT us Chris Michaels MD LABORATORY Final Resul t [facility] [address] [place] [address], documented in this encounter Visit Diagnoses Diagnosis Urine retention- Primary Retention of urine, unspecified Urinary retention Retention of urine, unspecified Gross hematuria Bladder mass Other specified disorders of bladder Gross hematuria documented in this encounter Admitting Diagnoses Diagnosis Urine retention Retention of urine, unspecified Gross hematuria documented in this encounter Administered Medications Active Administered Medications - up to 3 most recent administrations Medication Order MAR Action Action Date Dose Rate Site acetaminophen (TYLENOL) tablet 650 mg 650 mg, Oral, Every 4 hours PRN, Mild pain (Scale 1 - 3), Headaches, Fever, Discomfort, Starting on Tue02/18/25 at 0212, Until Discontinued, Maximum dose of acetaminophen is 4000 mg from all sources in 24 hours. amLODIPine (NORVASC) tablet 5 mg 5 mg, Oral, Daily, First dose on Tue02/18/25 at 0915, Until DiscontinuedIndications:Hyp ertension Given 02/18/2025 10:37 AM CDT 5 mg bisacodyl (DULCOLAX) suppository 10 mg 10 mg, Rectal, Daily as needed, Constipation, Starting on Tue02/18/25 at 0856, Until Discontinued cefTRIAXone (ROCEPHIN) 2 g in sterile water 20 mL IV 2 g, Intravenous, at 240 mL/hr, Every 24 hours, 5 doses, First dose on Tue02/18/25 at 0230, Last dose on Tue02/22/25 at 0230, Administer over at least 5 minutes. Given 02/18/2025 3:32 AM CDT 2 g 240 mL/hr cetirizine (ZyrTEC) tablet 5 mg 5 mg, Oral, Daily, First dose on Tue02/18/25 at 0915, Until Discontinued Given 02/18/2025 10:37 AM CDT 5 mg escitalopram (LEXAPRO) tablet 20 mg 20 mg, Oral, Daily, First dose on Tue02/18/25 at 0915, Until DiscontinuedIndications:Dep ression Given 02/18/2025 10:37 AM CDT 20 mg formoterol (PERFOROMIST) nebulizer solution 20 mcg 20 mcg, Nebulization, 2 times daily RT, First dose on Tue02/18/25 at 0915, Until Discontinued Given 02/18/2025 12:12 PM CDT 20 mcg furosemide (LASIX) tablet 20 mg 20 mg, Oral, Daily, First dose on Tue02/18/25 at 0915, Until DiscontinuedIndications:Diu retic Therapy Given 02/18/2025 10:37 AM CDT 20 mg insulin lispro (HUMALOG/ADMELOG) injection 0-14 Units 0-14 Units, Subcutaneous, 3 times daily before meals, First dose on Tue02/18/25 at 0700, Until Discontinued, Blood Glucose (SENSITIVE Dosing): [Less than 70: Initiate Hypoglycemia Standing Orders] [71-140: 0 units] [141-180: 2 units] [181-220: 4 units] [221-260: 6 units] [261-300: 8 units] [301-350: 10 units] [351-400: 12 units] [Greater than 400: 14 units and Call Physician] Given 02/18/2025 12:22 PM CDT 4 Units Right Arm Given 02/18/2025 8:28 AM CDT 2 Units Ri ght Arm insulin lispro (HUMALOG/ADMELOG) injection 0-7 Units 0-7 Units, Subcutaneous, Nightly at bedtime, First dose on Tue02/18/25 at 2100, Until Discontinued, Blood Glucose (SENSITIVE Dosing): [Less than 70: Initiate Hypoglycemia Standing Orders] [71-180: 0 units] [181-220: 2 units] [221-260: 3 units] [261-300: 4 units] [301-350: 5 units] [351-400: 6 units] [Greater than 400: 7 units and Call Physician] isosorbide mononitrate ER (IMDUR) 24 hr tablet 30 mg 30 mg, Oral, Daily, First dose on Tue02/18/25 at 0915, Until Discontinued, May be split in half along the tablet score line; do not chew or crush.Indications:Angina Pectoris Given 02/18/2025 10:37 AM CDT 30 mg levothyroxine (SYNTHROID) tablet 75 mcg 75 mcg, Oral, Daily (levothyroxine), First dose on Tue02/18/25 at 0915, Until Discontinued, Avoid iron, calcium, and antacids within 4 hours of administration.Indications:Hypothyroidism Given 02/18/2025 10:19 AM CDT 7 5 mcg magnesium oxide (MAG-OX) tablet 400 mg 400 mg, Oral, Daily, First dose on Tue02/18/25 at 0915, Until DiscontinuedIndications:Hypomagnesemia Given 02/18/2025 10:37 AM CDT 400 mg ondansetron (ZOFRAN) injection 4 mg 4 mg, Intravenous, Every 6 hours PRN, Nausea, Vomiting, Starting on Tue02/18/25 at 0211, Until Discontinued, IV push over 2-5 minutes. polyethylene glycol (GLYCOLAX) packet 17 g 17 g, Oral, Daily as needed, Constipation, Starting on Tue02/18/25 at 0212, Until Discontinued, If both senna and polyethylene glycol are ordered, use 1st; if no response by next dosing interval, go to next option. Given 02/18/2025 8:35 AM CDT 17 g senna-docusate (SENOKOT-S) 8.6-50 MG tablet 1 tablet 1 tablet, Oral, 2 times daily, First dose on Tue02/18/25 at 0915, Until Discontinued Given 02/18/2025 10:37 AM CDT 1 tablet tiotropium (SPIRIVA RESPIMAT) 2.5 MCG/ACT inhaler 2 puff 2 puff, Inhalation, Daily RT, First dose on Tue02/18/25 at 0915, Until Discontinued, Common canister Given 02/18/2025 12:15 PM CDT 2 puffs documented in this encounter Active and Recently Administered Medications Times are shown in CDT. Scheduled Medication Order 02/16/2025 02/17/2025 02/18/2025 amLODIPine (NORVASC) tablet 5 mg 5 mg, Oral, Daily, First dose on Tue02/18/25 at 0915, Until Discontinued 1037 (Given - Provid er: Marline Mendieta RN) atorvastatin (LIPITOR) tablet 80 mg 80 mg, Oral, Nightly at bedtime, First dose on Tue02/18/25 at 2100, Until Discontinued 2100 (Due) cefTRIAXone (ROCEPHIN) 2 g in sterile water 20 mL IV 2 g, Intravenous, at 240 mL/hr, Every 24 hours, 5 doses, First dose on Tue02/18/25 at 0230, Last dose on Tue02/22/25 at 0230, Administer over at least 5 minutes. 0332 (Given - Provid er: Ruba Go RN - Comment: was in ED) cetirizine (ZyrTEC) tablet 5 mg 5 mg, Oral, Daily, First dose on Tue02/18/25 at 0915, Until Discontinued 1037 (Given - Provid er: Marline Mendieta RN) escitalopram (LEXAPRO) tablet 20 mg 20 mg, Oral, Daily, First dose on Tue02/18/25 at 0915, Until Discontinued 1037 (Given - Provid er: Marline Mendieta RN) formoterol (PERFOROMIST) nebulizer solution 20 mcg 20 mcg, Nebulization, 2 times daily RT, First dose on Tue02/18/25 at 0915, Until Discontinued 1212 (Given - Provid er: Joshua Burns, PRE OWNED SALES MANAGER)1900 (Due) furosemide (LASIX) tablet 20 mg 20 mg, Oral, Daily, First dose on Tue02/18/25 at 0915, Until Discontinued 1037 (Given - Provid er: Marline Mendieta RN) insulin lispro (HUMALOG/ADMELOG) injection 0-14 Units(Linked Group 1) 0-14 Units, Subcutaneous, 3 times daily before meals, First dose on Tue02/18/25 at 0700, Until Discontinued, Blood Glucose (SENSITIVE Dosing): [Less than 70: Initiate Hypoglycemia Standing Orders] [71-140: 0 units] [141-180: 2 units] [181-220: 4 units] [221-260: 6 units] [261-300: 8 units] [301-350: 10 units] [351-400: 12 units] [Greater than 400: 14 units and Call Physician] 0828 (Given - Provid er: Marline Mendieta RN)1222 (Given - Provider: Marline Mendieta RN - Comment: blood sugar 194)1600 (Due) insulin lispro (HUMALOG/ADMELOG) injection 0-7 Units(Linked Group 1) 0-7 Units, Subcutaneous, Nightly at bedtime, First dose on Tue02/18/25 at 2100, Until Discontinued, Blood Glucose (SENSITIVE Dosing): [Less than 70: Initiate Hypoglycemia Standing Orders] [71-180: 0 units] [181-220: 2 units] [221-260: 3 units] [261-300: 4 units] [301-350: 5 units] [351-400: 6 units] [Greater than 400: 7 units and Call Physician] 2100 (Due) insulin lispro protamine-insulin lispro (HumaLOG 75-25) (75-25) 100 UNIT/ML injection 26 Units 26 Units, Subcutaneous, 2 times daily before meals, First dose on Tue02/18/25 at 1600, Until Discontinued 1600 (Due) isosorbide mononitrate ER (IMDUR) 24 hr tablet 30 mg 30 mg, Oral, Daily, First dose on Tue02/18/25 at 0915, Until Discontinued, May be split in half along the tablet score line; do not chew or crush. 1037 (Given - Provid er: Marline Mendieta RN) levothyroxine (SYNTHROID) tablet 75 mcg 75 mcg, Oral, Daily (levothyroxine), First dose on Tue02/18/25 at 0915, Until Discontinued, Avoid iron, calcium, and antacids within 4 hours of administration. 1019 (Given - Provid er: Marline Mendieta RN) magnesium oxide (MAG-OX) tablet 400 mg 400 mg, Oral, Daily, First dose on Tue02/18/25 at 0915, Until Discontinued 1037 (Given - Provid er: Marline Mendieta RN) senna-docusate (SENOKOT-S) 8.6-50 MG tablet 1 tablet 1 tablet, Oral, 2 times daily, First dose on Tue02/18/25 at 0915, Until Discontinued 1037 (Given - Provid er: Marline Mendieta RN)2100 (Due) tiotropium (SPIRIVA RESPIMAT) 2.5 MCG/ACT inhaler 2 puff 2 puff, Inhalation, Daily RT, First dose on Tue02/18/25 at 0915, Until Discontinued, Common canister 1215 (Given - Provid er: Joshua Burns, PRE OWNED SALES MANAGER) PRN Medication Order 02/16/2025 02/17/2025 02/18/2025 acetaminophen (TYLENOL) tablet 650 mg 650 mg, Oral, Every 4 hours PRN, Mild pain (Scale 1 - 3), Headaches, Fever, Discomfort, Starting on Tue02/18/25 at 0212, Until Discontinued, Maximum dose of acetaminophen is 4000 mg from all sources in 24 hours. albuterol sulfate HFA 108 (90 Base) MCG/ACT inhaler 2 puff 2 puff, Inhalation, Every 6 hours PRN, Wheezing, Starting on Tue02/18/25 at 0853, Until Discontinued bisacodyl (DULCOLAX) suppository 10 mg 10 mg, Rectal, Daily as needed, Constipation, Starting on Tue02/18/25 at 0856, Until Discontinued ondansetron (ZOFRAN) injection 4 mg 4 mg, Intravenous, Every 6 hours PRN, Nausea, Vomiting, Starting on Tue02/18/25 at 0211, Until Discontinued, IV push over 2-5 minutes. polyethylene glycol (GLYCOLAX) packet 17 g 17 g, Oral, Daily as needed, Constipation, Starting on Tue02/18/25 at 0212, Until Discontinued, If both senna and polyethylene glycol are ordered, use 1st; if no response by next dosing interval, go to next option. 0835 (Given - Provid er: Marline Mendieta RN) Linked Groups Order Group 1: insulin lispro (HUMALOG/ADMELOG) injection 0-14 UnitsJump to med 0-14 Units, Subcutaneous, 3 times daily before meals, First dose on Tue02/18/25 at 0700, Until Discontinued, Blood Glucose (SENSITIVE Dosing): [Less than 70: Initiate Hypoglycemia Standing Orders] [71-140: 0 units] [141-180: 2 units] [181-220: 4 units] [221-260: 6 units] [261-300: 8 units] [301-350: 10 units] [351-400: 12 units] [Greater than 400: 14 units and Call Physician] And insulin lispro (HUMALOG/ADMELOG) injection 0-7 UnitsJump to med 0-7 Units, Subcutaneous, Nightly at bedtime, First dose on Tue02/18/25 at 2100, Until Discontinued, Blood Glucose (SENSITIVE Dosing): [Less than 70: Initiate Hypoglycemia Standing Orders] [71-180: 0 units] [181-220: 2 units] [221-260: 3 units] [261-300: 4 units] [301-350: 5 units] [351-400: 6 units] [Greater than 400: 7 units and Call Physician] documented in this encounter Additional Health Concerns Assessment Noted Time PHQ-9 Depression Total Score: 10 024 12:56 PM CORN COOKER documented as of this encounter Care Teams Army Helicopter Pilot Relationship Specialty Start Date End Date Arely Mujica PA-C [address] [place] [address] [address] [place] [address] PCP - General PHYSICIAN INDUSTRIAL TRACTOR DRIVER 05/28/24 documented as of this encounter
--- OUTSIDE RECORDS SUMMARY | 2025-02-18 16:15 | XMS_ITS | Encounter Summary ---
Author Organization [facility] Address [facility] [place] [address] Care Team Providers Care Torch Straightener Name Role Phone Arely Mujica-Iram Primary Care Provider [phone]- [phone] Encounter Details Date Type Department Care Team (Late st Contact Info) Description 01/29/2025 Kelan Message [facility] Out[facility] [address] [place] [id number] Alona Gant, ROD CUP FILLER-C [address] [address] Isaac Hernandez birthdate 1935 Social History Tobacco Use Types Packs/Day Years [...] from your doctor or pharmacy? Often 01/07/2025 [facility] Utilities Answer Date Recorded In the past 12 months has th e electric, gas, oil, or water company threatened to shut off services in your home? No 01/19/2025 Humiliation, Afraid, Rape, and Kick questionnair e Answer Date Recorded Within the last year, have y ou been afraid of your partner or ex-partner? No 01/19/2025 Within the last year, have y ou been humiliated or emotionally abused in other ways by your partner or ex-partner? No Within the last year, have y ou been kicked, hit, slapped, or otherwise physically hurt by your partner or ex-partner? No 01/19/2025 Within the last year, have y ou been raped or forced to have any kind of sexual activity by your partner or ex-partner? No 01/19/2025 Social Connection and Isolat ion Panel [NHANES] Answer Date Recorded In a typical week, how many times do you talk on the phone with family, friends, or neighbors? More than three times a week 01/07/2025 How often do you get togethe r with friends or relatives? More than three times a week 01/07/2025 How often do you attend chur ch or scientology services? Never 01/07/2025 Do you belong to any clubs o r organizations such as nondenominational groups, unions, fraternal or athletic groups, or [...] food, housing, medical care, and heating? Not hard at all 01/19/2025 PHQ-2 Answer Date Recorded Patient Health Questionnaire-2 Score 2 01/07/2025 [facility] - Occupational Stress [...] the money to buy more. Never true 01/20/20 25 Within the past 12 months, t he food you bought just didn't last and you didn't have money to get more. Never true 01/19/2025 PRAPARE - Transportation Answer Date Re corded In the past 12 months, has l ack of transportation kept you from medical appointments or from getting medications? No 12/30 In the past 12 months, has l ack of transportation kept you from meetings, work, or from getting things needed for daily living? No 01/19/2025 Housing Stability Vital Sign Answer Brad e Recorded In the last 12 months, was t here a time when you were not able to pay the mortgage or rent on time? No 01/19/2025 In the past 12 months, how m any times have you moved where you were living? 0 01/19/2025 At any time in the past 12 m [facility], were you homeless or living in a half-way (including now)? No 01/19/2025 Education Answer Date Recorded What is the highest level of school you have completed or the highest degree you have received? High school graduate 08/03/2022 Sex and Gender Information Value Date Recorded Sex Assigned at Male 01/08/2025 12:31 AM CDT Legal Sex Male 6:48 PM CDT Gender Identity Not on file Sexual Orientation Not on file documented as of this encounter Functional Status * Are you deaf or do you have serious difficulty hearing Answer Date of Assessment Author Status Yes 01/19/2025 3:40 PM Dori Mark RN Active * Are you blind or do you have serious difficulty seeing, even when wearing glasses? Answer Date of Assessment Author Status No 01/19/2025 3:40 PM Dori Mark RN Active * Do you have serious difficulty walking or climbing stairs? Answer Date of Assessment Author Status No 01/19/2025 3:40 PM Dori Mark RN Active * Do you have difficulty dressing or bathing? Answer Date of Assessment Author Status No 01/19/2025 3:40 PM Dori Mark RN Active * Because of a physical, mental, or emotional condition, do you have difficulty doing errands alone such as visiting a doctor's office or shopping? Answer Date of Assessment Author Status No 01/19/2025 3:40 PM Dori Mark RN Active documented as of this encounter Mental Status * Because of a physical, mental, or emotional condition, do you have serious difficulty concentrating, remembering, or making decisions? Answer Entry Date Author Status No 01/19/2025 3:40 PM Dori Mark RN Active documented in this encounter Plan of Treatment Upcoming Encounters Date Type Department Care Team (Late st Contact Info) Description 02/22/2025 8:00 AM CDT Home Care Visit [address] [place] [address] Tara Dunne RN [phone] (Work) 02/25/2025 7:00 AM CDT Home Care Visit [address] [place] [address] Sandra Neves LPN 02/26/2025 10:30 AM CDT Appointment [facility] [place] [address] José Miguel Daugherty MD [address] [place] [address], [address] [place] [address] 02/26/2025 12:00 PM CDT Appointment [place] [place] [address] José Miguel Daugherty MD [address] [place] [address], [address] [place] [address] 03/01/2025 8:00 AM CDT Home Care Visit [facility] [address] [place] [place] [address] Tara Dunne RN [phone] (Work) 03/25/2025 2:20 PM CDT [facility] Health[facility] THREE [facility], [facility] [address] [place] [address] Chip Hansen MD Three [facility]. [facility] [address] [place] [address] 08/05/2025 2:40 PM CDT Office Visit [facility] Medical [facility] [address] [place] [address] Nam Velasco DO 3 [facility] [address] [place] [address] 08/14/2025 12:30 PM CDT Office Visit [facility] [address] [place] [phone] Javi Joseph MD Three [facility] [place] [address] documented as of this encounter Goals Goal Patient Goal Type Associated Problems Recent Progress Patient-Stated? Author Health - patient able to perform ADLs independently General No Vanessa Bhat RN Safety - demonstrates understanding of home safety measures Lifestyle No Gabriella Oneill RN Safety - demonstrates understanding of home safety measures Lifestyle No Gabriella Oneill metal filer - family caregiver with be involved in care transitions and discharge planning Lifestyle No Marj Patel RN Family - family caregiver with be involved in care transitions and discharge planning Lifestyle No Kristina Rees RN documented as of this encounter Visit Diagnoses Not on filedocumented in this encounter Additional Health Concerns Assessment Noted Time PHQ-9 Depression Total Score: 10 024 12:56 PM 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
--- OUTSIDE RECORDS SUMMARY | 2025-02-18 16:15 | XMS_ITS | Encounter Summary ---
Author Organization [facility] Address [facility] [place] [address] Care Team Providers Care River Captain Name Role Phone Arely Mujica PA-C Primary Care Provider [phone]- [phone] Encounter Details Date Type Department Care Team (Latest Contact Info) Description 02/18/2025 Travel Social History Tobacco Use Types Packs/Day Years [...] from your doctor or pharmacy? Often 01/07/2025 [facility] Utilities Answer Date Recorded In the past [...] week 01/07/2025 How often [facility] you attend [facility] or rastafarian services? Never 01/07/2025 Do you belong to any clubs o r organizations such as sabianist groups, unions, fraternal or athletic groups, or [...] Recorded Patient Health Questionnaire-2 Score 2 01/07/2025 [facility] - Occupational Stress [...] any time in the past 12 m [facility], were you homeless or living in a senior living (including now)? Yes 02/18/2025 Education Answer Date [...] as of this encounter Functional Status * Question Answer Date of Assessment Author Status Do you have serious difficulty walking or climbing stairs? No 02/18/2025 3:42 AM CDT Ruba Go RN A ctive * Question [...] serious difficulty hearing No 02/18/2025 3:42 AM uRba Gurrola RN Ac tive Are you blind or do you have serious difficulty seeing, even when wearing glasses? No 02/18/2025 3:42 AM Ruba Gurrola RN Ac tive * Calculated C-SSRS Risk Score (Lifetime/Recent) Answer Date of Assessment Author Status No Risk Indicated 02/18/2025 3:12 AM Hillary Gurrola RN Active * [place] Suicide Severity Rating Scale (Screener/Recent Self-Report) Question Answer Date of Assessment Author Status 1. Wish to be (Past 1 Month) No 02/18/2025 3:12 AM Ruba Gurrola RN Ac tive 2. Non-Specific Active Suicidal Thoughts (Past 1 Month) No 02/18/2025 3:12 AM CDT Ruba Go RN Ac tive 6. Suicidal Behavior (Lifetime) No 02/18/2025 3:12 AM CDT Ruba Go RN Ac tive documented as of this encounter Mental Status * Question Answer Entry Date Author Status Because of a physical, mental, or emotional condition, do you have serious difficulty concentrating, remembering, or making decisions? No 02/18/2025 3:42 AM CDT Ruba Go RN Active * Because of a physical, mental, or emotional condition, do you have serious difficulty concentrating, remembering, or making decisions? Answer Entry Date Author Status No 02/18/2025 3:42 AM CDT Ruba Go RN Active documented in this encounter Plan of Treatment Upcoming Encounters Date Type Department Care Team (Late st Contact Info) Description 02/22/2025 8:00 AM CDT Home Care Visit [facility] Care [address] [place] [address] Tara Dunne RN [phone] (Work) 02/25/2025 7:00 AM CDT Home Care Visit [address] [place] [address] [place] [address] Sandra Neves LPN 02/26/2025 10:[address] [facility] [place] [address] José Miguel Daugherty MD [address] [place] [address], [address] [place] [phone] 02/26/2025 12:[address] [place] [address] José Miguel Daugherty MD [address] [place] [address], [address] [place] [id number] 03/01/2025 8:00 AM CDT Home Care Visit [address] [place] [address] Tara Dunne, RN [phone] (Work) 03/25/2025 2:20 PM CDT [facility] [place] [address] [place] [address] [facility] [address] [place] [address] 08/05/2025 2:40 PM CDT Office Visit [facility] Medical Group [facility] [address] [place] [address] Nam Velasco DO 3 [facility] [address] [place] [address] 08/14/2025 12:30 PM CDT Office Visit [facility] [facility] [address] [place] [phone] [facility]. [place] [address] [place] [address] documented as of this encounter Goals Goal Patient Goal Type Associated Problems Recent Progress Patient-Stated? Author Health - patient able to perform ADLs independently General No Vanessa Bhat RN Safety - demonstrates understanding of home safety measures Lifestyle No Gabriella Oneill, RN Safety - demonstrates understanding of home safety measures Lifestyle No Gabriella Oneill, fence setter - family caregiver with be involved in care transitions and discharge planning Lifestyle No Marj Patel RN Family - family caregiver with be involved in care transitions and discharge planning Lifestyle No Kristina Rees, RN documented as of this encounter Visit Diagnoses Not on filedocumented in this encounter Additional Health Concerns Assessment Noted Time PHQ-9 Depression Total Score: 10 024 12:56 PM 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
--- OUTSIDE RECORDS SUMMARY | 2025-02-18 16:15 | XMS_ITS | Encounter Summary ---
Author Organization [facility] Address [facility] [place] [address] Care Team Providers Care Seconds Grader Name Role Phone None, Provider Primary Care Provider Sundar Moctezuma MD Primary Care Provider David Hope MD Primary Care Provider [phone] Arely Mujica PA-C Primary Care Provider +1- [phone] Encounter Details Date Type Department Care Team (Late st Contact Info) Description 07/27/2019 Prep for Procedure [facility] [address] [place] [address] Walker Silveira, MAGNET PLACER [address] [place] [address] Social History Tobacco Use Types Packs/Day Years Used Date Smoking Tobacco: Never Smokeless Tobacco: Never Alcohol Use Standard Drinks/Week Comments Yes 13.3 (1 standard drink = 0.6 oz pure alcohol) Sex and Gender Information Value Date Recorded Sex Assigned at Male 01/08/2025 12:31 AM CDT Legal Sex Male 6:48 PM CDT Gender Identity Not on file Sexual Orientation Not on file documented as of this encounter Plan of Treatment Upcoming Encounters Date Type Department Care Team (Late st Contact Info) Description 02/22/2025 8:00 AM CDT Home Care Visit [facility] [address] [place] [address] [place] [address] Tara Dunne RN [phone] (Work) 02/25/2025 7:00 AM CDT Home Care Visit [facility] Care [address] [place] [address] [place] [address] Sandra Neves LPN 02/26/2025 10:30 AM CDT Appointment [facility] [place] [address] José Miguel Daugherty MD [address] [place] [address], [address] [place] [address] 02/26/2025 12:00 PM CDT [place] [address] José Miguel Daugherty MD [address] [place] [address], [address] [place] [address] 03/01/2025 8:00 AM CDT Home Care Visit [address] [place] [address] [place] [address] Tara Dunne RN [phone] (Work) 03/25/2025 2:20 PM CDT [facility] [address] [place] [address] Chip Hansen MD Three [facility]. [facility] [address] [place] [address] 08/05/2025 2:40 PM CDT Office Visit [facility] Medical [facility] [address] [place] [phone] Nam Velasco DO [address] [facility] [address] [place] [address] 08/14/2025 12:30 PM CDT Office Visit [facility] [address] [place] [phone] Javi [facility] [address] [place] [address] documented as of this encounter Visit Diagnoses Diagnosis Pre-op exam- Primary Preoperative examination, unspecified documented in this encounter Additional Health Concerns Infection Onset Date Last Indicated Resolved Time COVID-19 Rule Out 04/26/2022 04/26/2022 04/26/2022 9:51 AM CDT COVID-19 Rule Out 05/07/2022 05/07/2022 05/07/2022 10:17 AM CDT COVID-19 Confirmed 05/07/2022 05/07/2022 12:32 AM CDT COVID-19 Rule Out 05/23/2024 05/23/2024 05/23/2024 10:40 AM CDT Influenza - Seasonal 05/23/2024 05/23/2024 024 12:32 AM CDT Respiratory Rule-Out 01/07/2025 01/07/2025 025 1:26 PM CDT COVID-19 Rule Out 01/07/2025 01/07/2025 01/07/2025 1:22 PM CDT Respiratory Rule-Out 01/09/2025 01/09/2025 025 2:40 PM CDT Influenza - Seasonal 01/09/2025 01/09/2025 025 8:32 AM CDT documented as of this encounter Care Teams Seconds Grader Relationship Specialty Start Date End Date None, Rhea, PCP - General 03/28/19 07/02/20 Sundar Jain MD [address] [place] [address] PCP - General INTERNAL MEDICINE 07/03/20 08/02/22 David Hope MD [address] [place] [address] PCP - General FAMILY PRACTICE 08/03/22 05/27/24 Arely Mujica PA-C [address] [place] [address] PCP - General PHYSICIAN MANAGER QUALITY SYSTEMS 05/28/24 documented as of this encounter
--- OUTSIDE RECORDS SUMMARY | 2025-02-18 16:15 | XMS_ITS | Encounter Summary ---
Author Organization [facility] Address [facility] [place] [address] Care Team Providers Care Pedigree Researcher Name Role Phone Arely Mujica PA-C Primary Care Provider [phone] Reason for Referral * Imaging (Emergency) - New Request Specialty Diagnoses / Procedures Referred By Shelby t Referred To Contact RADIOLOGY Procedures CT ABD+PEL WO CON Alyssa Fernandez MD [address] [place] [address] Phone: tel: fax: Referral ID Status Reason Start Date Expiration Date V isits Requested Visits Authorized [id number] New Request 02/17/2025 02/17/2026 1 1 Reason for Visit * Reason Comments Hematuria Encounter Details Date Type Department Care Team (Late st Contact Info) Description 02/17/2025 10:44 AM CDT - 02/17/2025 2:04 PM CDT Emergency [facility] Emergency Room [id number] [place] [address] Alyssa Fernandez MD [address] [place] [address] Hematuria Discharge Disposition: Home or Self Care (Routine Discharge) Social History Tobacco Use Types Packs/Day Years [...] your doctor or pharmacy? Often 01/07/2025 [facility] Utilities Answer Date Recorded In the past 12 months has e [employer], gas, oil, or water [employer] threatened to shut off services in your [...] 01/07/2025 How often do you attend chur or oriental orthodox services? Never 01/07/2025 Do you belong to any clubs o r organizations such as anabaptism groups, unions, fraternal or athletic groups, or [...] Recorded Patient Health Questionnaire-2 Score 2 01/07/2025 [facility] - Occupational Stress Questionnaire Answer Date Recorded [...] [facility] in the [facility], were you homeless or living in a penitentiary (including now)? Yes 02/18/2025 Education Answer Date [...] Sign Reading Time Taken Comments Blood Pressure 119/62 02/17/2025 12:01 PM CDT Pulse 70 02/17/2025 12:01 PM CDT Temperature 36.4 C (97.5 F) 02/17/2025 10:10 AM CDT Respiratory Rate 18 02/17/2025 12:01 PM CDT Oxygen Saturation 96% 02/17/2025 12:01 PM CDT Inhaled Oxygen Concentration - - Weight 130.6 kg (288 lb) 02/17/2025 10:10 AM CDT Height 177.8 cm (5' 10 ) 02/17/2025 10:10 AM CDT Body Mass Index 41.32 02/17/2025 10:10 AM CDT documented in this encounter Functional Status * Are you deaf or do you have serious difficulty hearing Answer Date of Assessment Author Status Yes 01/19/2025 3:40 PM CDT Dori Goodwin RN Active * Are you blind or do you have serious difficulty seeing, even when wearing glasses? Answer Date of Assessment Author Status No 01/19/2025 3:40 PM CDT Dori Goodwin RN Active * Do you have serious difficulty walking or climbing stairs? Answer Date of Assessment Author Status No 01/19/2025 3:40 PM CDT Dori Goodwin RN Active * Do you have difficulty dressing or bathing? Answer Date of Assessment Author Status No 01/19/2025 3:40 PM CDT Dori Goodwin RN Active * Because of a physical, mental, or emotional condition, do you have difficulty doing errands alone such as visiting a doctor's office or shopping? Answer Date of Assessment Author Status No 01/19/2025 3:40 PM RAGHAVT Dori Goodwin RN Active * Calculated C-SSRS Risk Score (Lifetime/Recent) Answer Date of Assessment Author Status No Risk Indicated 02/17/2025 10:11 AM CDT Riri Loyd RN Active * [place] Suicide Severity Rating Scale (Screener/Recent Self-Report) Question Answer Date of Assessment Author Status 1. Wish to be (Past 1 Month) No 02/17/2025 10:11 AM RAGHAVT Riri La RN Active 2. Non-Specific Active Suicidal Thoughts (Past 1 Month) No 02/17/2025 10:11 AM RAGHAVT Riri La RN Active 6. Suicidal Behavior (Lifetime) No 02/17/2025 10:11 AM RAGHAVT Riri La RN Active documented as of this encounter Mental Status * Because of a physical, mental, or emotional condition, do you have serious difficulty concentrating, remembering, or making decisions? Answer Entry Date Author Status No 01/19/2025 3:40 PM RAGHAVT Dori Goodwin RN Active documented in this encounter Discharge Instructions * Discharge Instructions* Alyssa Fernandez MD - 02/17/2025 1:47 PM CDT Please follow-up with your urologist, return to the emergency department you have any fevers, worsening abdominal pain, inability to pass urine, lightheadedness or shortness of breath. * Attachments The following attachments cannot be sent through Care Everywhere. * Blood in the Urine (Hematuria) Discharge Instructions, Adult (Ethiopian) documented in this encounter Medications at Time [...] as needed. Indications: Constipation 15 g 01/17/2025 cefdinir (OMNICEF) 300 MG Cap capsuleIndicatio ns:Sialadenitis Take 1 capsule (300 mg total) by mouth 2 (two) times daily. Indications: Salivary Gland Inflammation 20 capsule 01/22/2025 insulin lispro prot & lispro (HUMALOG MIX 75-25) (75-25) 100 UNIT/ML injection (PEN)Indications :Diabetes Mellitus Inject 10 Units into the skin daily. Indications: Diabetes 20 units in AM and 10 units in PM 5 pen. 11 06/12/2024 5 documented as of this encounter ED Notes * Alyssa Fernandez MD - 02/17/2025 11:33 AM CDT Chief Complaint Chief Complaint Patient presents with Hematuria History of Present Illness This is an 89-year-old male presents secondary to hematuria. Patient states he has a history of bladder cancer, in remission and is on annual cystoscopies for evaluation, he is on Eliquis for historyof blood clots, he sees Dr. Coles for uroloygy and Dr. Redd for Nephrology. Apparently he was recently diagnosed with cholecystitis so PERC Chantelle was placed due to infection, patient has baselineAKI with an elevated creatinine, he states he has been passing some blood clots but has been able to urinate, denies any abdominal pain, no fevers, no burning with urination. Denies any falls or trauma. No back pain. Medical History ALLERGIES: Review of patient's allergies indicates: Allergen Reactions Meperidine Itching Morphine Itching Oxycodone Itching Penicillins Unknown Tolerated amoxicillin April 2022 Iodine Rash MEDICATIONS: Prior to Admission medications Medication Sig Start [...] once. Indications: Vitamin Deficiency Default History Genericprovider PAST MEDICAL HISTORY: Past Medical History[1] PAST SURGICAL HISTORY: Past Surgical History[2] FAMILY HISTORY: Family History[3] SOCIAL HISTORY: Social History[4] Review of Systems Review of Systems Physical Exam Filed Vitals: 02/17/25 1010 02/17/25 1201 BP: 126/52 119/62 Pulse: 69 70 Resp: 20 18 Temp: 97.5 ??F (36.4 ??C) SpO2: 95% 96% Weight: 130.6 kg (288 lb) Height: 1.778 m (5' 10 ) Physical Exam VITAL SIGNS: Per nurse's note, reviewed by me. GEN: Appears well developed, NAD. SKIN: Warm and dry. HEAD: Atraumatic. EYES: PERRLA. ENT: Airway patent, MMM. NECK: Supple CARDIOVASCULAR: Normal Rate and regular rhythm, +2 b/l radial pulses. RESPIRATORY: CTAB, regular work of breathing GI: Soft, ND/NT, no guarding. MSKL Normal ROM, no peripheral edema, no gross deformities. NEURO: Alert and oriented, symmetric spontaneous limb movement. Diagnostic Studies / Procedures ELECTROCARDIOGRAMS: No results found for this visit on 02/17/25. LABORATORY STUDIES: Results for orders placed or performed during the hospital encounter of 02/17/25 COMPREHENSIVE METABOLIC PANEL Result Value Ref Range GLUCOSE 299 (H) 70 - 99 MG/DL BUN 30 (H) 7 - 18 MG/DL CREATININE S/P/B 1.98 (H) 0.7 - 1.3 MG/DL SODIUM S/P/B 137 136 - 145 MMOL/L POTASSIUM S/P/B 4.4 3.5 - 5.1 MMOL/L CHLORIDE S/P/B 100 100 - 108 MMOL/L CO2 27.9 21 - 32 MMOL/L CALCIUM S/P/B 8.9 8.5 - 10.1 MG/DL BILIRUBIN TOTAL S/P/B 0.8 0.2 - 1.2 MG/DL TOTAL PROTEIN S/P/B 6.4 6.4 - 8.2 G/DL ALBUMIN S/P/B 2.6 (L) 3.4 - 5.0 G/DL AST 16 15 - 37 U/L ALT 32 16 - 60 U/L ALKALINE PHOSPHATASE S/P/B 77 50 - 136 U/L ANION GAP 9.1 5 - 15 MMOL/L BUN CREATININE RATIO 15.2 6 - 26 A/G RATIO 0.7 (L) 1.0 - 2.0 RATIO GFR ESTIMATE 32 (L) >90 ML/MIN/1.73 M2 CBC W/DIFF AUTOMATED Result Value Ref Range WBC 8.14 4.4 - 11.0 x10'3/uL RBC 3.95 (L) 4.50 - 5.90 x10'6/uL HGB 11.9 (L) 14.0 - 17.5 G/DL HCT 36.9 (L) 41.5 - 50.4 % MCV 93.4 80.0 - 96.0 FL MCH 30.1 26.5 - 31.4 PG MCHC 32.2 31.9 - 34.8 G/DL RDW 13.5 12.3 - 14.3 % PLT 252 151 - 353 x10'3/uL MPV 8.8 (L) 9.7 - 11.9 FL RBC MORPHOLOGY NORMAL PLT MORPH. NORMAL WBC MORPHOLOGY NORMAL LYMPHOCYTES % 8.7 (L) 15.8 - 45.0 % NEUTROPHILS % 75.4 (H) 42.1 - 71.9 % MONOCYTES % 13.1 (H) 5.7 - 12.5 % EOSINOPHILS 1.7 0.0 - 5.6 % BASOPHILS 0.6 0.0 - 1.3 % ABS. NEUTROPHILS 6.13 (H) 1.40 - 6.00 x10'3/uL IMMATURE GRANS % 0.5 0.0 - 0.5 % ABS. LYMPHOCYTES 0.71 (L) 0.80 - 4.70 x10'3/uL PROTIME/INR, VENOUS Result Value Ref Range PROTIME 17.8 (H) 9.1 - 12.4 SEC INR 1.6 URINALYSIS, AUTO, COMPLETE Result Value Ref Range COLOR (U) RED TRANSPARENCY TURBID SPECIFIC GRAVITY (U) 1.020 1.000 - 1.030 U PH 6.5 5.0 - 9.0 LEUKOCYTES (U) 1+ (A) NEGATIVE NITRITES POSITIVE (A) NEGATIVE PROTEIN RANDOM (U) 3+ (A) NEGATIVE GLUCOSE (U) TRACE (A) NEGATIVE KETONES MG/DL (U) NEGATIVE NEGATIVE BILIRUBIN (U) NEGATIVE NEGATIVE BLOOD (U) 3+ (A) NEGATIVE WBC/HPF 5-10 0 - 5 /HPF RBC/HPF TOO NUMEROUS TO COUNT 0 - 5 /HPF EPI/HPF NONE SEEN /HPF BACTERIA (U) MODERATE /HPF IMAGING STUDIES CT ABD+PEL WO CON Final Result by User, [id number] (02/17 131) [facility] [address] [place] [address] Examination: CT ABD+PEL WO CON Exam time: 02/17/2025 12:23 PM HISTORY: hematuria with mild lower abd pain since this AM GB drain placed on Tuesday TECHNIQUE: Helical CT of the abdomen and pelvis was performed without intravenous contrast. A dose lowering technique was used for this procedure, which may include, but is not limited to, dose reduction technique, automated exposure control, the use of iterative reconstruction, and ALARA (As Low As Reasonably Achievable) / Image Gently techniques. COMPARISON: 01/09/2025 05/23/2024. FINDINGS: Lower thorax: Chronic right basilar volume loss. Chronic small right pleural effusion with adjacent thickening. Fatty lobular pleural change and thickening and calcification in the right posterior lateral base. There is redemonstration of multiple pleural based plaques, which can be seen with asbestos-related pleural disease. Partially imaged transvenous pacemaker leads. Moderate bilateral gynecomastia. Coronary artery calcifications. 4 cm diameter of the ascending aorta and 3 cm diameter of the descending aorta are considered borderline for ectasia. No significant pericardial effusion. Liver: The liver is normal in size. No fatty liver disease or cirrhosis. No intrahepatic mass is seen on this non-contrast exam. Biliary tree: Percutaneous gallbladder drain successfully decompresses the gallbladder. No significant acute inflammatory changes of the gallbladder. There remains numerous gallstones. No bile duct dilatation or bile duct stone. Spleen: The spleen is normal in size. Pancreas: Moderate atrophy. No acute finding. There are no pancreatic calcifications. The pancreatic duct is not dilated. Adrenal glands: The adrenal glands are normal in size and shape. Kidneys: Nonspecific bilateral perinephric stranding which is symmetric. Mild dilated left ureter and collecting system. Small kidney stones without obstruction in the left kidney. Small hyperdense nodule in the posterior lower pole left kidney is unchanged measuring 2.4 cm. Small cyst in the lower pole right kidney. Lymph nodes: Abdomen: There is no abdominal adenopathy. Pelvis: There is no pelvic adenopathy. Vasculature: There is no abdominal aortic aneurysm. Atherosclerotic calcification is seen. Peritoneum/mesentery/omentum: There is no free fluid or free air. GI tract: There is no bowel obstruction. There is no abnormal bowel wall thickening to suggest acute inflammation. Moderate fecal burden is seen within the colon. Scattered colonic diverticulosis without evidence of acute inflammation. Pelvic urogenital structures:There is irregular masslike wall thickening of the posterior inferior urinary bladder. This measures 5.5 x 3.6 x 3.9 cm. See axial image 142 and sagittal image 81. A small right posterior-lateral bladder diverticulum. The prostate is present. Body wall: Osteoporosis. There are degenerative changes in the spine. Partially imaged right hip arthroplasty hardware. Moderate degenerative changes of the left hip joint. No aggressive osseous lesions identified. Fat accumulation of the left inguinal channel compared to the right. Limitations: Evaluation of the solid parenchymal organs and vasculature is limited due to lack of intravenous contrast. IMPRESSION: 1. There is masslike irregular thickening involving the posterior inferior bladder wall; this is probably a bladder tumor and would explain the hematuria. This measures 5.5 x 3.6 x 3.9 cm. Cystoscopy is recommended. Mild dilated left ureter and renal collecting system from the bladder tumor. This may require stenting. 2. Percutaneous gallbladder drain successfully decompresses the gallbladder. No significant acute inflammatory changes of the gallbladder. There remains numerous gallstones. No bile duct dilatation or bile duct stone. Referred By: Interpreted By: Daryl Arboleda MD, 02/17/2025 1:01 PM ED Course / Medical Decision Making Medical Decision Making Amount and/or Complexity of Data Reviewed Labs: ordered. Radiology: ordered. This is an 89-year-old male who presents secondary to hematuria , painless. Patient with history ofbladder cancer in remission, CKD, he has a PERC Chantelle without any abdominal pain, appears to be draining and family changing daily. No fevers, patient able to urinate on command without any urinary symptoms aside from hematuria. Does not appear to be symptomatic of stones however CT scan was done which showed masslike irregular thickening wall of the posterior inferior bladder, likely bladder tumor which would explain the hematuria. He also has a mild dilated left ureter and renal collecting system from the bladder tumor that may require stenting. Patient's hemoglobin however does not appear to show any profound anemia patient patient struck to continue to take his Eliquis for his PE. He should follow-up with his urologist for repeat cystoscopy and further evaluation of his findings. His creatinine appears to be at his baseline, does not have any tenderness near the biliary area so unlikely at this is related, patient does not have any signs of obstruction, given return precautions for any urinary obstructions, signs of anemia, signs of infection. Patient given information to follow-up with their urologist. Clinical Impression Bladder mass (Primary) Hematuria Disposition: Discharge [1] Past Medical History: Diagnosis Date Acute respiratory failure with hypoxemia ([facility] HHS/HCC) Arthritis CKD (chronic kidney disease), stage III ([facility]/HCC) COVID-19 vaccine series completed 01/29/2021 CPAP (continuous positive airway pressure) dependence Diabetes mellitus ([facility] HHS/HCC) Hypothyroidism Hypothyroidism Obstructive sleep apnea Pulmonary embolism ([facility] HHS/HCC) On Eliquis Rash chest - sees geodesy teacher S/P placement of cardiac pacemaker 08/26/2022 Sleep apnea SSS (sick sinus syndrome) ([facility]) s/p pacemaker placement [2] Past Surgical History: Procedure Laterality Date ABDOMINAL SURGERY BACK SURGERY CARPAL TUNNEL RELEASE COLONOSCOPY N/A 08/01/2019 COLONOSCOPY WITH REMOVAL OF POLYPS AND APPLICATION OF RESOLUTION CLIPS performed by Sophia Byrnes [facility] OR COLONOSCOPY STOMA RMVL LES BY HOT BIOPSY FORCEPS 07/19/2018 F/u 1 year HERNIA REPAIR JOINT REPLACEMENT REPLACEMENT TOTAL KNEE Bilateral SHOULDER SURGERY Bilateral Replacement TRANSURETHRAL INCISION OF PROSTATE [3] Family History Problem Relation Name Age of Onset Colon Cancer Brother [4] Social History Tobacco Use Smoking status: Never Smokeless tobacco: Never Vaping Use Vaping status: Never Used Substance Use Topics Alcohol use: Yes Alcohol/week: 13.3 standard drinks of alcohol Types: 8 Cans of beer per week Comment: occasionally Drug use: Never Alyssa Fernandez MD 02/17/25 1748 * Riri La RN - 02/17/2025 10:13 AM CDT Pt arrives to the ER with complains of hematuria with mild lower abd pain that began this AM. Pt oneliquis at home. Pt denies feeling urinary retention. Drain placed in gallbladder this Tuesday for an infection, no longer on abx. Denies fevers at home. Alert and oriented x4 documented in this encounter Plan of Treatment Upcoming Encounters Date Type Department Care Team (Late st Contact Info) Description 02/22/2025 8:00 AM CDT Home Care Visit [facility] [address] [place] [address] Tara Dunne RN [phone] (Work) 02/25/2025 7:00 AM CDT Home Care Visit [facility] [address] [place] [address] Sandra Nvees LPN 02/26/2025 10:30 AM CDT Appointment [facility] [place] [address] José Miguel Daugherty MD [address] [place] [address], [address] [id number] 02/26/2025 12:00 PM CDT [place] [address] José Miguel Daugherty MD [address] [place] [address], [address] [id number] 03/01/2025 8:00 AM CDT Home Care Visit [facility] [address] [place] [address] Tara Dunne, RN [phone] (Work) 03/25/2025 2:20 PM CDT Allied [facility] [address] [place] [address] Cihp Hansen MD [facility]. [facility] [address] [place] [address] 08/05/2025 2:40 PM CDT Office Visit [facility] [address] [place] [address] Nam Velasco DO [address] [place] [address] 08/14/2025 12:30 PM CDT [facility] [address] [facility] [id number] Javi Joseph MD [facility]. [place] [address] [place] [address] Pending Results Name Type Priority Associated Diagnoses Date /Time CULTURE URINE Microbiology STAT 11:06 AM CDT Scheduled Orders Name Type Priority Associated Diagnoses Orde r Schedule CULTURE URINE Microbiology STAT Once for 1 Occurrences starting 02/17/2025 until 02/17/2025 documented as of this encounter Goals Goal Patient Goal Type Associated Problems Recent Progress Patient-Stated? Author Health - patient able to perform ADLs independently General No Vanessa Bhat, LORENZO Safety - demonstrates understanding of home safety measures Lifestyle No Gabriella Oneill RN Safety - demonstrates understanding of home safety measures Lifestyle No Gabriella Oneill, barrel raiser - family caregiver with be involved in care transitions and discharge planning Lifestyle No Marj Patel RN Family - family caregiver with be involved in care transitions and discharge planning Lifestyle No Kristina Rees, LORENZO documented as of this encounter Procedures Procedure Name Priority Date/Time Associated Diagnosis Comments CT ABD+PEL WO CON STAT 02/17/2025 12: 37 PM CDT URINALYSIS, AUTO, COMPLETE STAT 02/17/2025 11:06 AM CDT PROTHROMBIN TIME, VENOUS STAT 02/17/2025 10:53 AM CDT COMPREHENSIVE METABOLIC PANEL STAT 02/17/2025 10:53 AM CDT CBC W/DIFF AUTOMATED STAT 02/17/2025 10:53 AM CDT documented in this encounter Results * CT ABD+PEL WO CON (02/17/2025 12:37 PM CDT) Anatomical Region Laterality Modality Abdomen Computed Tomogra phy 02/17/2025 1:01 PM CDT Impressions 02/17/2025 1:12 PM CDT IMPRESSION: 1. There is masslike irregular thickening involving the posterior inferior bladder wall; this is probably a bladder tumor and would explain the hematuria. This measures 5.5 x 3.6 x 3.9 cm. Cystoscopy is recommended. Mild dilated left ureter and renal collecting system from the bladder tumor. This may require stenting. 2. Percutaneous gallbladder drain successfully decompresses the gallbladder. No significant acute inflammatory changes of the gallbladder. There remains numerous gallstones. No bile duct dilatation or bile duct stone. Referred By: Interpreted By: Daryl Arboleda MD, 02/17/2025 1:01 PM Narrative 02/17/2025 1:12 PM CDT [facility] [address] [facility] [place] [address] Examination: CT ABD+PEL WO CON Exam time: 02/17/2025 12:23 PM HISTORY: hematuria with mild lower abd pain since this AM GB drain placed on Tuesday TECHNIQUE: Helical CT of the abdomen and pelvis was performed without intravenous contrast. A dose lowering technique was used for this procedure, which may include, but is not limited to, dose reduction technique, automated exposure control, the use of iterative reconstruction, and ALARA (As Low As Reasonably Achievable) / Image Gently techniques. COMPARISON: 01/09/2025 05/23/2024. FINDINGS: Lower thorax: Chronic right basilar volume loss. Chronic small right pleural effusion with adjacent thickening. Fatty lobular pleural change and thickening and calcification in the right posterior lateral base. There is redemonstration of multiple pleural based plaques, which can be seen with asbestos-related pleural disease. Partially imaged transvenous pacemaker leads. Moderate bilateral gynecomastia. Coronary artery calcifications. 4 cm diameter of the ascending aorta and 3 cm diameter of the descending aorta are considered borderline for ectasia. No significant pericardial effusion. Liver: The liver is normal in size. No fatty liver disease or cirrhosis. No intrahepatic mass is seen on this non-contrast exam. Biliary tree: Percutaneous gallbladder drain successfully decompresses the gallbladder. No significant acute inflammatory changes of the gallbladder. There remains numerous gallstones. No bile duct dilatation or bile duct stone. Spleen: The spleen is normal in size. Pancreas: Moderate atrophy. No acute finding. There are no pancreatic calcifications. The pancreatic duct is not dilated. Adrenal glands: The adrenal glands are normal in size and shape. Kidneys: Nonspecific bilateral perinephric stranding which is symmetric. Mild dilated left ureter and collecting system. Small kidney stones without obstruction in the left kidney. Small hyperdense nodule in the posterior lower pole left kidney is unchanged measuring 2.4 cm. Small cyst in the lower pole right kidney. Lymph nodes: Abdomen: There is no abdominal adenopathy. Pelvis: There is no pelvic adenopathy. Vasculature: There is no abdominal aortic aneurysm. Atherosclerotic calcification is seen. Peritoneum/mesentery/omentum: There is no free fluid or free air. GI tract: There is no bowel obstruction. There is no abnormal bowel wall thickening to suggest acute inflammation. Moderate fecal burden is seen within the colon. Scattered colonic diverticulosis without evidence of acute inflammation. Pelvic urogenital structures:There is irregular masslike wall thickening of the posterior inferior urinary bladder. This measures 5.5 x 3.6 x 3.9 cm. See axial image 142 and sagittal image 81. A small right posterior-lateral bladder diverticulum. The prostate is present. Body wall: Osteoporosis. There are degenerative changes in the spine. Partially imaged right hip arthroplasty hardware. Moderate degenerative changes of the left hip joint. No aggressive osseous lesions identified. Fat accumulation of the left inguinal channel compared to the right. Limitations: Evaluation of the solid parenchymal organs and vasculature is limited due to lack of intravenous contrast. Procedure Note Daryl Arboleda MD - 02/17/2025 [facility] [address] [place] [address] Examination: CT ABD+PEL WO CON Exam time: 02/17/2025 12:23 PM HISTORY: hematuria with mild lower abd pain since this AM GB drain placed on Tuesday TECHNIQUE: Helical CT of the abdomen and pelvis was performed withoutintravenous contrast. A dose lowering technique was used for thisprocedure, which may include, but is not limited to, dose reductiontechnique, automated exposure control, the use of iterativereconstruction, and ALARA (As Low As Reasonably Achievable) / Image Gentlytechniques. COMPARISON: 01/09/2025 05/23/2024. FINDINGS: Lower thorax: Chronic right basilar volume loss. Chronic small rightpleural effusion with adjacent thickening. Fatty lobular pleural changeand thickening and calcification in the right posterior lateral base.There is redemonstration of multiple pleural based plaques, which can beseen with asbestos-related pleural disease. Partially imaged transvenouspacemaker leads. Moderate bilateral gynecomastia. Coronary arterycalcifications. 4 cm diameter of the ascending aorta and 3 cm diameter ofthe descending aorta are considered borderline for ectasia. Nosignificant pericardial effusion. Liver: The liver is normal in size. No fatty liver disease or cirrhosis.No intrahepatic mass is seen on this non-contrast exam. Biliary tree: Percutaneous gallbladder drain successfully decompresses thegallbladder. No significant acute inflammatory changes of thegallbladder. There remains numerous gallstones. No bile duct dilatationor bile duct stone. Spleen: The spleen is normal in size. Pancreas: Moderate atrophy. No acute finding. There are no pancreaticcalcifications. The pancreatic duct is not dilated. Adrenal glands: The adrenal glands are normal in size and shape. Kidneys: Nonspecific bilateral perinephric stranding which is symmetric.Mild dilated left ureter and collecting system. Small kidney stoneswithout obstruction in the left kidney. Small hyperdense nodule in theposterior lower pole left kidney is unchanged measuring 2.4 cm. Smallcyst in the lower pole right kidney. Lymph nodes: Abdomen: There is no abdominal adenopathy. Pelvis: There is no pelvic adenopathy. Vasculature: There is no abdominal aortic aneurysm. Atheroscleroticcalcification is seen. Peritoneum/mesentery/omentum: There is no free fluid or free air. GI tract: There is no bowel obstruction. There is no abnormal bowel wallthickening to suggest acute inflammation. Moderate fecal burden is seenwithin the colon. Scattered colonic diverticulosis without evidence ofacute inflammation. Pelvic urogenital structures:There is irregular masslike wall thickeningof the posterior inferior urinary bladder. This measures 5.5 x 3.6 x 3.9cm. See axial image 142 and sagittal image 81. A small rightposterior-lateral bladder diverticulum. The prostate is present. Body wall: Osteoporosis. There are degenerative changes in the spine.Partially imaged right hip arthroplasty hardware. Moderate degenerativechanges of the left hip joint. No aggressive osseous lesions identified.Fat accumulation of the left inguinal channel compared to the right. Limitations: Evaluation of the solid parenchymal organs and vasculature islimited due to lack of intravenous contrast. IMPRESSION: 1. There is masslike irregular thickening involving the posteriorinferior bladder wall; this is probably a bladder tumor and would explainthe hematuria. This measures 5.5 x 3.6 x 3.9 cm. Cystoscopy isrecommended. Mild dilated left ureter and renal collecting system from the bladdertumor. This may require stenting. 2. Percutaneous gallbladder drain successfully decompresses thegallbladder. No significant acute inflammatory changes of thegallbladder. There remains numerous gallstones. No bile duct dilatationor bile duct stone. Referred By: Interpreted By: Daryl Arboleda MD, 02/17/2025 1:01 PM Alyssa Fernandez MD CT Final Result * (ABNORMAL) URINALYSIS, AUTO, COMPLETE (02/17/2025 11:06 AM CDT) COLOR (U) RED 02/17/2025 11:21 AM CDT [facility] TRANSPARENCY TURBID 02/17/2025 11:21 AM T [facility] SPECIFIC GRAVITY (U) 1.020 1.000 - 1.030 02/17/2025 11:21 AM T [facility] U PH 6.5 5.0 - 9.0 02/17/2025 11:21 AM T [facility] LEUKOCYTES (U) 1+(A) NEGATIVE 02/17/2025 11:21 AM T [facility] NITRITES POSITIVE(A) NEGATIVE 02/17/2025 11:21 AM T [facility] PROTEIN RANDOM (U) 3+(A) NEGATIVE 02/17/2025 11:21 AM T [facility] GLUCOSE (U) TRACE(A) NEGATIVE 02/17/2025 11:21 AM T [facility] KETONES MG/DL (U) NEGATIVE NEGATIVE 02/17/2025 11:21 AM CDT [facility] BILIRUBIN (U) NEGATIVE NEGATIVE 02/17/2025 11:21 AM CDT [facility] BLOOD (U) 3+(A) NEGATIVE 02/17/2025 11:21 AM CDT [facility] WBC/HPF 5-10 0 - 5 /HPF 02/17/2025 11:21 AM CDT [facility] RBC/HPF TOO NUMEROUS TO COUNT 0 - 5 /HPF 02/17/2025 11:21 AM CDT [facility] EPI/HPF NONE SEEN /HPF 02/17/2025 11:21 AM CDT [facility] BACTERIA (U) MODERATE /HPF 02/17/2025 11:21 AM CDT [facility] URINE SPECIMEN OBTAINED BY CLEAN CATCH PROCEDURE / Unknown 02/17/2025 11:06 AM CDT Alyssa Fernandez MD URINE ORDERABLES Final Result [facility] [address] [place] [id number], [place] [phone] * (ABNORMAL) PROTIME/INR, VENOUS (02/17/2025 10:53 AM CDT) PROTIME 17.8(H) 9.1 - 12.4 SEC 02/17/2025 11:17 AM CDT [facility] INR 1.6 02/17/2025 11:17 AM CDT [facility] Comment: Recommend INR ranges for Oral Anticoagulant Therapy: Mechanical Cardiac Values 2.5-3.5 All others indication 2.0-3.0 02/17/2025 10:5 3 AM CDT us Alyssa Fernandez MD LABORATORY Final Result [facility] [address] [place] [address], * (ABNORMAL) CBC W/DIFF AUTOMATED (02/17/2025 10:53 AM CDT) WBC 8.14 4.4 - 11.0 x10'3/uL 02/17/2025 11:30 AM CDT [facility] RBC 3.95(L) 4.50 - 5.90 x10'6/uL 02/17/2025 11:30 AM CDT [facility] HGB 11.9(L) 14.0 - 17.5 G/DL 02/17/2025 11:30 AM CDT [facility] HCT 36.9(L) 41.5 - 50.4 % 02/17/2025 11:30 AM CDT [facility] MCV 93.4 80.0 - 96.0 FL 02/17/2025 11:30 AM CDT [facility] MCH 30.1 26.5 - 31.4 PG 02/17/2025 11:30 AM CDT [facility] MCHC 32.2 31.9 - 34.8 G/DL 02/17/2025 11:30 AM CDT [facility] RDW 13.5 12.3 - 14.3 % 02/17/2025 11:30 AM CDT [facility] PLT 252 151 - 353 x10'3/uL 02/17/2025 11:30 AM CDT [facility] MPV 8.8(L) 9.7 - 11.9 FL 02/17/2025 11:30 AM CDT [facility] RBC MORPHOLOGY NORMAL 02/17/2025 11:30 AM CDT [facility] PLT MORPH. NORMAL 02/17/2025 11:30 AM CDT [facility] WBC MORPHOLOGY NORMAL 02/17/2025 11:30 AM CDT [facility] LYMPHOCYTES % 8.7(L) 15.8 - 45.0 % 02/17/2025 11:30 AM CDT [facility] NEUTROPHILS % 75.4(H) 42.1 - 71.9 % 02/17/2025 11:30 AM CDT [facility] MONOCYTES % 13.1(H) 5.7 - 12.5 % 02/17/2025 11:30 AM CDT [facility] EOSINOPHILS 1.7 0.0 - 5.6 % 02/17/2025 11:30 AM CDT [facility] BASOPHILS 0.6 0.0 - 1.3 % 02/17/2025 11:30 AM CDT [facility] ABS. NEUTROPHILS 6.13(H) 1.40 - 6.00 x10'3/uL 02/17/2025 11:30 AM CDT [facility] IMMATURE GRANS % 0.5 0.0 - 0.5 % 02/17/2025 11:30 AM CDT [facility] ABS. LYMPHOCYTES 0.71(L) 0.80 - 4.70 x10'3/uL 02/17/2025 11:30 AM CDT [facility] 02/17/2025 10:5 3 AM CDT us Alyssa Fernandez MD LABORATORY Final Result [facility] [address] [place] [address], * (ABNORMAL) COMPREHENSIVE METABOLIC PANEL (02/17/2025 10:53 AM CDT) [facility] GLUCOSE 299(H) 70 - 99 MG/DL 02/17/2025 11:24 AM [facility] BUN 30(H) 7 - 18 MG/DL 02/17/2025 11:24 AM [facility] CREATININE S/P/B 1.98(H) 0.7 - 1.3 MG/DL 02/17/2025 11:24 AM [facility] SODIUM S/P/B 137 136 - 145 MMOL/L 02/17/2025 11:24 AM [facility] POTASSIUM S/P/B 4.4 3.5 - 5.1 MMOL/L 02/17/2025 11:24 AM [facility] CHLORIDE S/P/B 100 100 - 108 MMOL/L 02/17/2025 11:24 AM [facility] CO2 27.9 21 - 32 MMOL/L 02/17/2025 11:24 AM [facility] CALCIUM S/P/B 8.9 8.5 - 10.1 MG/DL 02/17/2025 11:24 AM [facility] BILIRUBIN TOTAL S/P/B 0.8 0.2 - 1.2 MG/DL 02/17/2025 11:24 AM [facility] TOTAL PROTEIN S/P/B 6.4 6.4 - 8.2 G/DL 02/17/2025 11:24 AM [facility] ALBUMIN S/P/B 2.6(L) 3.4 - 5.0 G/DL 02/17/2025 11:24 AM [facility] AST 16 15 - 37 U/L 02/17/2025 11:24 AM [facility] ALT 32 16 - 60 U/L 02/17/2025 11:24 AM CDT [facility] ALKALINE PHOSPHATASE S/P/B 77 50 - 136 U/L 02/17/2025 11:24 AM CDT [facility] ANION GAP 9.1 5 - 15 MMOL/L 02/17/2025 11:24 AM T [facility] BUN CREATININE RATIO 15.2 6 - 26 02/17/2025 11:24 AM T [facility] A/G RATIO 0.7(L) 1.0 - 2.0 RATIO 02/17/2025 11:24 AM T [facility] GFR ESTIMATE 32(L) >90 ML/MIN/1.7 3 M2 02/17/2025 11:24 AM T [facility] Comment: NOTE: eGFR is not calculated for patients <18 years of age. This is an estimated GFR calculation using the new CKD EPI creatinine equation without race and so does not require a correction factor for race. This estimated GFR should not be used for calculating drug doses. 02/17/2025 10:5 3 AM CDT us Alyssa Fernandez MD LABORATORY Final Result [facility] [address] [place] [id number], documented in this encounter Visit Diagnoses Diagnosis Bladder mass- Primary Other specified disorders of bladder Hematuria Hematuria, unspecified documented in this encounter Additional Health Concerns Assessment Noted Time PHQ-9 Depression Total Score: 10 024 12:56 PM PAPERHANGER documented as of this encounter Care Teams Pedigree Researcher Relationship Specialty Start Date End Date Arely Mujica PA-C [address] [place] [address] [address] [place] [address] PCP - General PHYSICIAN JOINT CUTTER 05/28/24 documented as of this encounter
--- OUTSIDE RECORDS SUMMARY | 2025-02-18 16:15 | XMS_ITS | Encounter Summary ---
Author Organization [facility] Address [address] [place] [address] Care Team Providers Care Allied Health Professional Name Role Phone None, Provider Primary Care Provider Sundar Moctezuma MD Primary Care Provider [phone] David Hope MD Primary Care Provider [phone] Arely Mujica PA-C Primary Care Provider [phone]- [phone] Encounter Details Date Type Department Care Team (Late st Contact Info) Description 09/03/2017 [place] [address] , Generic Conversion, Social History Tobacco Use Types Packs/Day Years Used Date Smoking Tobacco: Never Assessed Sex and Gender Information Value Date Recorded Sex Assigned at Male 01/08/2025 12:31 AM CDT Legal Sex Male 6:48 PM CDT Gender Identity Not on file Sexual Orientation Not on file documented as of this encounter Plan of Treatment Upcoming Encounters Date Type Department Care Team (Late Contact Info) Description 02/22/2025 8:00 AM CDT Home Care Visit [facility] Home Care [address] [place] [address] Tara Dunne, RN [phone] (Work) 02/25/2025 7:00 AM CDT Home Care Visit [facility] Home Care [address] [place] [address] Sandra Neves LPN 02/26/2025 10:[address] [facility] [place] [address] José Miguel Daugherty MD [address] [place] [address], [address] [place] [address] 02/26/2025 12:00 PM CDT Appointment [facility] [address] José Miguel Daugherty MD [address] [place] [address], [address] [place] [address] 03/01/2025 8:00 AM CDT Home Care Visit [address] [place] [address] Tara Dunne, RN [phone] (Work) 03/25/2025 2:20 PM CDT Allied Health[facility], [facility] [address] [place] [address] Chip Hansen MD Three [facility]. [facility] [address] [place] [address] 08/05/2025 2:40 PM CDT Office Visit [facility] Medical [facility] Pul[facility] - [address] [address] Nam Velasco DO [address] [facility] [address] [place] [address] 08/14/2025 12:30 PM CDT Office Visit [facility] [address] [place] [id number] Javi Joseph MD [facility]. [address] [address] documented as of this encounter Visit Diagnoses Not on filedocumented in this encounter Additional Health Concerns Infection [...] documented as of this encounter Care Teams Allied Health Professional Relationship Specialty Start Date End Date None, Provider, PCP - General 03/28/19 07/02/20 Sundar Jain MD [address] [place] [id number] PCP - General INTERNAL MEDICINE 07/03/20 08/02/22 David Hope MD [address] [place] [address] PCP - General FAMILY PRACTICE 08/03/22 05/27/24 Arely Mujica PA-C [address] [place], [place] [address] [place] [address] PCP - General PHYSICIAN PRODUCTION TESTER 05/28/24 documented as of this encounter
--- OUTSIDE RECORDS SUMMARY | 2025-02-18 16:15 | XMS_ITS | Encounter Summary ---
Author Organization [facility] Address [facility] [place] [address] Care Team Providers Care Carroter Name Role Phone Arely Mujica PA-C Primary Care Provider [phone] Encounter Details Date Type Department Care Team (Latest Contact Info) Description 02/17/2025 Travel Social History Tobacco Use Types Packs/Day [...] from your doctor or pharmacy? Often 01/07/2025 [facility] Utilities Answer Date Recorded In the [...] week 01/07/2025 How often do you attend up health system or sabianism services? Never 01/07/2025 Do you belong to any clubs o r organizations such as spiritism groups, unions, fraternal or athletic groups, or [...] Recorded Patient Health Questionnaire-2 Score 2 01/07/2025 [facility] - Occupational [...] any time in the past 12 [address] [place] [place], were you homeless or living in a nursing home (including now)? Yes 02/18/2025 Education Answer Date [...] Assessment Author Status Yes 01/19/2025 3:40 PM RAGHAVT Dori Goodwin RN Active * Are you [...] 3:40 PM Dori Mark RN Active * Calculated C-SSRS Risk Score (Lifetime/Recent) Answer Date of Assessment Author Status No Risk Indicated 02/17/2025 10:11 AM RAGHAVT Riri Loyd RN Active * [place] Suicide Severity Rating Scale (Screener/Recent Self-Report) Question Answer Date of Assessment Author Status 1. Wish to be (Past 1 Month) No 02/17/2025 10:11 AM Riri Gerardo RN Active 2. Non-Specific Active Suicidal Thoughts (Past 1 Month) No 02/17/2025 10:11 AM Riri Gerardo RN Active 6. Suicidal Behavior (Lifetime) No 02/17/2025 10:11 AM Riri Gerardo RN Active documented as of this encounter [...] 02/22/2025 8:00 AM CDT Home Care Visit [facility] Home Care [address] [place] [address] Tara Dunne RN [phone] (Work) 02/25/2025 7:00 AM CDT Home Care Visit [facility] Care [address] [place] [address] Sandra Neves LPN 02/26/2025 10:30 AM CDT Appointment [facility] [place] [address] José Miguel Daugherty MD [address] [place] [address], [address] [place] [address] 02/26/2025 12:00 PM CDT [place] [address] José Miguel Daugherty MD [address] [place] [address], [address] [place] [address] 03/01/2025 8:00 AM CDT Home Care Visit [address] [place] [address] Tara Dunne RN [phone] (Work) 03/25/2025 2:20 PM CDT [facility], [facility] [address] [place] [address] Chip Hansen MD Three [facility]. [facility] [address] [place] [address] 08/05/2025 2:40 PM CDT Office Visit [facility] Medical Group Pul[facility]ology Specialty Clinic [address] [address] Nam Velasco DO 3 [facility] [address] [place] [address] 08/14/2025 12:30 PM CDT Office Visit [facility] [address] [place] [id number] Javi Joseph MD [facility]. [facility] [address] [place] [address] documented as of this encounter Goals Goal Patient Goal Type Associated Problems Recent Progress Patient-Stated? Author Health - patient able to perform ADLs independently General No Vanessa Bhat, LORENZO Safety - demonstrates understanding of home safety measures Lifestyle No Gabriella Oneill RN Safety - demonstrates understanding of home safety measures Lifestyle No Gabriella Oneill facility practice specialist - family caregiver with be involved in care transitions and discharge planning Lifestyle No Marj Patel RN Family - family caregiver with be involved in care transitions and discharge planning Lifestyle No Kristina Rees RN documented as of this encounter Visit Diagnoses Not on filedocumented in this encounter Additional Health Concerns Assessment Noted Time PHQ-9 Depression Total Score: 10 11/03/ 024 12:56 PM MOTIVATIONAL SPEAKER documented as of this encounter Care Teams Carroter Relationship Specialty Start Date End Date Arely Mujica PA-C [address] [place] [address] [address] [place] [address] PCP - General PHYSICIAN SPECIALTY TRANSFORMER ASSEMBLER 05/28/24 documented as of this encounter
--- OUTSIDE RECORDS SUMMARY | 2025-02-18 16:16 | XMS_ITS | Encounter Summary ---
Author Organization [facility] Address [address] [place] [address] Phone Care Team Providers Care Manager Garage Name Role Phone Sundar Jain MD Primary Care Provider [phone] Arely Mujica Primary Care Provider [phone] Encounter Details Date Type Department Care Team (Late st Contact Info) Description 04/28/2022 Documentation [facility] Orthopaedic Surgery [address] [facility] Advanced [facility] 12th [place] [address] RN Social History Tobacco Use Types Packs/Day Years Used Date Smoking Tobacco: Never Smokeless Tobacco: Never Sex and Gender Information Value Date Recorded Sex Assigned at Not on file Legal Sex Male 2:51 AM BEVERAGE MANAGER Gender Identity Not on file Sexual Orientation Not on file documented as of this encounter Plan of Treatment Not on file documented as of this encounter Visit Diagnoses Not on filedocumented in this encounter Care Teams Manager Garage Relationship Specialty Start Date End Date Sundar Jain MD [address] [facility] [place] [address] PCP - General Internal Medicine 01/22/20 01/23/25 Arely Mujica PA [facility] [place] [address] PCP - General Family Practice 01/24/25 documented as of this encounter
--- OUTSIDE RECORDS SUMMARY | 2025-02-18 16:16 | XMS_ITS | Clinical Summary ---
Author Organization [facility] [address] Address [address] [place] [address] Care Team Providers Care Silk Soaker Name Role Phone Arely Mujica Primary Care Provider [phone] Allergies Active Allergy Reactions Criticality Noted Date Comments Iodine Meperidine Morphine Oxycodone Itching Low 07/27/2019 Penicillins Medications acetaminophen (TYLENOL) 325 mg tablet Take 2 tablets (650 mg total) by mouth every 6 (six) hours as needed Active allopurinoL (ZYLOPRIM) 300 mg tablet 04/08/20 20 Active aspirin 81 mg enteric coated tablet Take by mouth Active True Metrix Glucose Test Strip strip USE STRIP TO CHECK GLUCOSE TWICE DAILY 03/13/20 20 Active cholecalcifero l (VITAMIN D-3) 77821 unit capsule Take by mouth Act last clotrimazole-b etamethasone (LOTRISONE) cream APPLY CREAM TO AFFECTED AREA TWICE DAILY FOR 2 WEEKS 05/20/20 20 Active cyanocobalamin (Vitamin B-12) 500 mcg tablet Take 1 tablet (500 mcg total) by mouth daily Active Trulicity 0.75 mg/0.5 mL pen injector INJECT 1 SYRINGE SUBCUTANEOUSLY EVERY OTHER WEEK ON Tuesday05/27/20 20 Active furosemide (LASIX) 80 mg tablet 04/08/20 20 Active HumaLOG Mix 75-25 KwikPen 100 unit/mL (75-25) insulin pen 03/27/20 20 Active isosorbide mononitrate ER (IMDUR) 30 mg 24 hr tablet 04/08/20 20 Active Synthroid 75 mcg tablet 04/08/20 20 Active lisinopriL (PRINIVIL,ZEST RIL) 10 mg tablet 04/08/20 20 Active loratadine (CLARITIN) 10 mg tablet Take by mouth Active omeprazole (PriLOSEC) 20 mg capsule 04/08/20 20 Active potassium chloride ER 20 mEq CR tablet 05/18/20 20 Active testosterone cypionate (DEPO-TESTOTER ONE) 200 mg/mL injection INJECT 1 2 (ONE HALF) ML (CC) INTRAMUSCULARLY EVERY TWO WEEKS 05/10/20 19 Active traMADoL (ULTRAM) 50 mg tablet Take by mouth 2 (two) times a day as needed 05/14/20 20 Active clobetasoL (TEMOVATE) 0.05 % ointment APPLY TO RASH AREAS ON LEGS ARMS HANDS TWICE DAILY FOR 4 WEEKS FOR FLARES. DO NOT APPLY TO FACE. TAKE 2 WEEK BREAK BEFORE RESTARTING. 03/05/20 21 Active nystatin-triam cinolone creamIndicatio ns:cutaneous candidiasis Applied to the affected area of the ear(s) twice daily for 3 weeks. 15 g 3 07/14/20 21 Active Additional Information Patient not taking.Reported on 01/24/2025 BD Ultra-Fine Short Pen Needle 31 gauge x 5/16 needle 2 (two) times a day 01/13/20 22 Active atorvastatin (LIPITOR) 20 mg tablet Take 1 tablet (20 mg total) by mouth daily 08/25/20 22 Active ondansetron 4 mg/2 mL injection Infuse 2 mL (4 mg total) into a venous catheter every 8 (eight) hours as needed 08/25/20 22 Active polyethylene glycol (MIRALAX) 17 gram/dose powder Take 17 g by mouth daily as needed 08/19/20 22 Active senna-docusate (PERICOLACE) 8.6-50 mg Take 1 tablet by mouth nightly 08/19/20 22 Active apixaban (ELIQUIS) 5 mg tablet Take 1 tablet (5 mg total) by mouth 2 (two) times a day Active rosuvastatin (CRESTOR) 40 mg tablet Take 1 tablet (40 mg total) by mouth daily Active amLODIPine (NORVASC) 5 mg tablet Take 1 tablet (5 mg total) by mouth daily Active escitalopram (LEXAPRO) 20 mg tablet Take 1 tablet (20 mg total) by mouth daily Active umeclidinium-v ilanteroL (ANORO ELLIPTA) 62.5-25 mcg/actuation blister with device Inhale Active albuterol HFA (PROVENTIL HFA,VENTOLIN HFA,PROAIR HFA) 90 mcg/actuation inhaler Inhale 2 puffs every 6 (six) hours as needed for wheezing Active magnesium oxide (MAG-OX) 400 mg (241.3 mg elemental magnesium) tablet Take 1 tablet (400 mg total) by mouth daily 01/18/20 25 Active doxycycline 100 mg tablet Take 1 tablet/capsule (100 mg total) by mouth 2 (two) times a day 01/24/20 25 025 cefdinir (OMNICEF) 300 mg capsule TAKE 1 CAPSULE BY MOUTH TWICE DAILY FOR SALIVARY GLAND INFLAMMATION 01/23/20 25 025 Discontinu ed(Reorder ) cefdinir (OMNICEF) 300 mg capsuleIndicat ions:Acute parotitis Take 1 capsule (300 mg total) by mouth 2 (two) times a day for 10 days 20 capsule 02/01/20 25 025 Active Problems Problem Noted Date Diagnosed Date Sensorineural hearing loss (SNHL) of both ears 0 07/13/2022 Otitis externa 07/14/2021 Acute parotitis 03/24/2021 Chronic eczematous otitis externa of both ears 0 06/09/2020 Impacted cerumen 02/23/2016 Subjective tinnitus 02/11/2015 Mixed conductive and sensori neural hearing loss of both ears 02/11/2015 Discharge of ear 07/02/2014 Deafness, mixed type 11/20/2013 Pain in ear 11/12/2013 Arthralgia of shoulder 12/31/2010 Encounters Date Type Department Care Team Description 01/30/2025 Telephone [facility] Otolaryngology [address] [place] [address] Cheli Mclaughlin LPN Right neck swelling 01/24/2025 11:15 AM CDT Office Visit [facility] Otolaryngology [address] [place] [address] Al Smith II, MD Sensorineural hearing loss (SNHL) of both ears (Primary Dx); Bilateral impacted cerumen; Acute parotitis from Last 3 Months Immunizations Immunization Administration Dates Next Due Pfizer SARS-CoV-2 Monovalent Vaccination (12+ Yrs) PURPLE 08/20/2021,01/29/2021,01/08/2021 Surgical History Surgery Date Site/Laterality Comments KNEE SURGERY Knee Surgery - (Added by Conv) BACK SURGERY Back Surgery - (Added by Conv) SHOULDER SURGERY Shoulder Surgery - (Added by Conv) [place] COLONOSCOPY FLX DX W/BLAKE J SPEC WHEN PFRMD Colonoscopy (Fiberoptic) - (Added by Conv) TN UNLISTED PROCEDURE ABDOME N PERITONEUM & OMENTUM Hernia Repair - (Added by TW Conv) TN LITHOTRIPSY XTRCORP SHOCK WAVE Renal Lithotripsy - (Added by Conv) ANAL FISSURECTOMY Anal Fissurectomy - (Added by Conv) MASTOIDECTOMY MYRINGOTOMY W/ TUBES FLUORO GUIDED ASPIRATION SHOULDER LEFT 05/25/2022 Left US GUIDED THORACENTESIS 02/27/2024 N/A Medical History Medical History Date Comments Personal history of malignant neoplasm History of cancer - (Added by Conv) Personal history of other di seases of the nervous system and sense organs History of cataract - (Added by Conv) Personal history of other en docrine, nutritional and metabolic disease History of diabetes mellitus - (Added by Conv) Allergic rhinitis Heart disease Tinnitus Ear problems Neck mass Family History Medical History Relation Name Comments Colon cancer Brother Family history of colon cancer - (Added by Conv) Relation Name Status Comments Brother Social History Tobacco Use Types Packs/Day Years Used Date Smoking Tobacco: Never Smokeless Tobacco: Never Tobacco Cessation:Counseling Given: Not Answered Sex and Gender Information Value Date Recorded Sex Assigned at Not on file Legal Sex Male 2:51 AM NOTEREADER Gender Identity Not on file Sexual Orientation Not on file Obstetrics History Last Filed Vital Signs Vital Sign Reading Time Taken Comments Blood Pressure 143/69 02/11/2015 9:37 AM CDT Pulse - - Temperature 36.6 C (97.9 F) 01/10/2024 12:41 PM CDT Respiratory Rate 18 01/24/2025 11:03 AM CDT Oxygen Saturation - - Inhaled Oxygen Concentration - - Weight 133.8 kg (295 lb) 01/24/2025 11:03 AM CDT Height 177.8 cm (5' 10 ) 01/24/2025 11:03 AM CDT Body Mass Index 42.33 01/24/2025 11:03 AM CDT Plan of Treatment Health Maintenance Due Date Last Done Comments Depression Screening 1935 Fall Risk Assessment 1935 DTaP/Tdap/Td Vaccine (1 - Tdap) 1946 Hepatitis B Screening 1953 Pneumococcal vaccine 65+ (1 of 2 - PCV) 1954 Zoster Vaccine (1 of 2) 1985 Well Visit 65+ 2000 Covid-19 Vaccine ( season) 2024 08/20/2021, 01/29/2021, 01/08/2021 Influenza Vaccine (Season Ended) 2025 08/18/20, 09/29/2018 Insurance MEDICARE [facility] Address: [facility] [address] [place] [address] [facility] MEDICARE [facility] MEDICARE [facility] Care Teams Silk Soaker Relationship Specialty Start Date End Date Arely Mujica PA [address] [place] [address] PCP - General Family Practice 01/24/25
--- OUTSIDE RECORDS SUMMARY | 2025-02-18 16:16 | XMS_ITS | Encounter Summary ---
Author Organization [facility] Address [address] [place] [address] Care Team Providers Care Physician Neonatology Name Role Phone David Hope MD Primary Care Provider [phone] Arely Mujica PA-C Primary Care Provider [phone] Encounter Details Date Type Department Care Team (Late st Contact Info) Description 04/27/2023 [facility] Integrated [facility]ology Message [facility] [address] [place], [place] [id number] [place], [facility] Provider Air Quality Message Social History Tobacco Use Types Packs/Day Years Used Date Smoking Tobacco: Never Smokeless Tobacco: Never Alcohol Use Standard Drinks/Week Comments Yes 13.3 (1 standard drink = 0.6 oz pure alcohol) occasionally PHQ-2 Answer Date Recorded PHQ-2 Score - If the patient scores above 3, please move on to questions 3-9 1 11/02/2021 Education Answer Date Recorded What is the [...] as of this encounter Functional Status * RETIRED Are you deaf or do you have serious difficulty hearing Answer Date of Assessment Author Status No 08/25/2022 4:18 PM CDT Activ e * RETIRED Are you blind or do you have serious difficulty seeing, even when wearing glasses? Answer Date of Assessment Author Status No 08/25/2022 4:18 PM CDT Activ e * Do you have serious difficulty walking or climbing stairs? Answer Date of Assessment Author Status Yes 08/25/2022 4:18 PM CDT Sonali Vgea RN Active * Do you have difficulty dressing or bathing? Answer Date of Assessment Author Status No 08/25/2022 4:18 PM CDT Sonali Vega RN Active * Because of a physical, mental, or emotional condition, do you have difficulty doing errands alone such as visiting a doctor's office or shopping? Answer Date of Assessment Author Status No 08/25/2022 4:18 PM CDT Sonali Vega RN Active documented as of this encounter Mental Status * Because of a physical, mental, or emotional condition, do you have serious difficulty concentrating, remembering, or making decisions? Answer Entry Date Author Status No 08/25/2022 4:18 PM CDT Sonali Vega RN Active documented in this encounter Plan of Treatment Upcoming Encounters Date Type Department Care Team (Late st Contact Info) Description 02/22/2025 8:00 AM CDT Home Care Visit [address] [address] Tara Dunne RN [phone] (Work) 02/25/2025 7:00 AM CDT Home Care Visit [address] [place] [address] Sandra Neves LPN 02/26/2025 10:[address] [facility] [place] [address] José Miguel Daugherty MD [address] [place] [address], [address] [place] [address] 02/26/2025 12:00 PM CDT Appointment [facility] [address] [facility] [place] [address] José Miguel Daugherty MD [address] [place] [address], [address] [place] [address] 03/01/2025 8:00 AM CDT Home Care Visit [address] [place] [address] Tara Dunne RN [phone] (Work) 03/25/2025 2:20 PM CDT Allied Health/Nurse Visit [facility] [address] [place] [address] Chip Hansen MD [address] [facility]. [address] [place] [address] 08/05/2025 2:40 PM CDT Office Visit [facility] Pul[facility] [address] [place] [address] Nam Velasco DO [address] [facility] [address] [place] [address] 08/14/2025 12:30 PM CDT Office Visit [facility] [address] [phone] Javi Joseph MD [facility]. [address] [place], [place] [id number] documented as of this encounter Goals Goal Patient Goal Type Associated Problems Recent Progress Patient-Stated? Author Health - patient able to perform ADLs independently General No Vanessa Bhat, RN Safety - demonstrates understanding of home safety measures Lifestyle No Gabriella Oneill RN Safety - demonstrates understanding of home safety measures Lifestyle No Gabriella Oneill RN documented as of this encounter Visit Diagnoses Not on filedocumented in this encounter Additional Health Concerns Infection Onset Date Last Indicated Resolved Time COVID-19 Rule Out 05/23/2024 05/23/2024 05/23/2024 10:40 AM CDT Influenza - Seasonal 05/23/2024 05/23/2024 024 12:32 AM CDT Respiratory Rule-Out 01/07/2025 01/07/2025 025 1:26 PM CDT COVID-19 Rule Out 01/07/2025 01/07/2025 01/07/2025 1:22 PM CDT Respiratory Rule-Out 01/09/2025 01/09/2025 025 2:40 PM CDT Influenza - Seasonal 01/09/2025 01/09/2025 025 8:32 AM CDT Assessment Noted Time PHQ-9 Depression Total Score: 1 11/02/19 22 11:19 AM 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
--- OUTSIDE RECORDS SUMMARY | 2025-02-18 16:16 | XMS_ITS | Referral Summary ---
Author Organization [address] Address [address] [place] [phone] Care Team Providers Care Executive Secretary Name Role Phone Arely Mujica Primary Care Provider [phone] Encounters Date Type Department Care Team Description 01/30/2025 Telephone [facility] Otolaryngology [address] [place] [phone] Cheli Mclaughlin LPN Right neck swelling 01/24/2025 11:15 AM CDT Office Visit [facility] Otolaryngology [address] [place] [phone] Al Smith II, MD Sensorineural hearing loss (SNHL) of both ears (Primary Dx); Bilateral impacted cerumen; Acute parotitis from Last 3 Months Allergies Active Allergy Reactions Criticality Noted Date [...] 03/13/20 20 Active cholecalcifero l (VITAMIN D-3) 04012 unit capsule Take by mouth Act last [...] in ear 11/12/2013 Arthralgia of shoulder 12/31/2010 Immunizations Immunization Administration Dates Next Due Pfizer SARS-CoV-2 Monovalent Vaccination (12+ Yrs) PURPLE 08/20/2021,01/29/2021,01/08/2021 Social History Tobacco Use Types Packs/Day Years Used Date Smoking Tobacco: Never Smokeless Tobacco: Never Tobacco Cessation:Counseling Given: Not Answered Sex and Gender Information Value Date Recorded Sex Assigned at Not on file 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
--- OUTSIDE RECORDS SUMMARY | 2025-02-18 16:16 | XMS_ITS | Clinical Summary ---
Author Organization [facility] Address [address] [place] [address] Care Team Providers Care Special Education Kindergarten Teacher Name Role Phone Arely Mujica PA-C Primary Care Provider [phone] Allergies Active Allergy Reactions Criticality Noted Date Comments Iodine Rash Low 07/28/2017 Meperidine Itching 07/28/2017 Morphine Itching 07/28/2017 Oxycodone Itching 07/27/2019 Penicillins Unknown 07/28/2017 Tolerated amoxicillin April 2022 Medications * This document contains information received from the source organization and may not represent a complete record from that organization. isosorbide mononitrate ER 30 MG 24 hr tabletIndicati ons:Angina Pectoris Take 1 tablet (30 mg total) by mouth daily. Indications: Angina Pectoris 019 Active SYNTHROID 75 MCG tabletIndicati ons:Hypothyroi dism Take 1 tablet (75 mcg total) by mouth every morning. Indications: Underactive Thyroid Active Cyanocobalamin (VITAMIN B 12) 500 MCG TabIndications :VITAMIN Take 1 tablet by mouth daily. Indications: VITAMIN Active Multiple Vitamin tabletIndicati ons:SUPPLEMENT Take 1 tablet by mouth daily. Indications: SUPPLEMENT Active vitamin D3, cholecalcifero l, 1000 UNIT Tab tabletIndicati ons:MVI Take 5 tablets (5,000 Units total) by mouth daily. Indications: MVI 10/31/2 022 Active loratadine (CLARITIN) 10 MG tabletIndicati ons:Allergic Reaction Take 1 tablet (10 mg total) by mouth daily. Indications: Allergic Reaction Active escitalopram (LEXAPRO) 20 MG tabletIndicati ons:Depression Take 1 tablet (20 mg total) by mouth every morning. Indications: Depression Active vitamin K2 (MENAQUINONE) 100 MCG Cap capsuleIndicat ions:Vitamin Deficiency Take by mouth once. Indications: Vitamin Deficiency Active apixaban (ELIQUIS) 5 MG tabletIndicati ons:Anticoagul ant Therapy Take 1 tablet (5 mg total) by mouth 2 (two) times daily. Indications: Anticoagulant Therapy 60 tablet 6 023 Active albuterol sulfate HFA 108 (90 Base) MCG/ACT inhalerIndicat ions:COPD exacerbation, complicated Inhale 2 puffs into the lungs every 6 (six) hours as needed for Wheezing. 18 g 6 024 Active umeclidinium-v ilanterol (ANORO ELLIPTA) 62.5-25 MCG/ACT inhalerIndicat ions:COPD exacerbation, complicated Inhale 1 puff into the lungs daily. 60 each 6 024 Active amLODIPine (NORVASC) 5 MG tabletIndicati ons:Hypertensi on Take 1 tablet (5 mg total) by mouth daily. 30 tablet 024 Active acetaminophen (TYLENOL) 500 MG tabletIndicati ons:Pain Take 0.5 tablets (250 mg total) by mouth nightly as needed for Pain. Indications: Pain 024 Active rosuvastatin (CRESTOR) 40 MG tabletIndicati ons:Hyperlipid emia Take 1 tablet (40 mg total) by mouth nightly at bedtime. Indications: High Amount of Fats in the Blood 024 Active furosemide (LASIX) 20 MG tabletIndicati ons:Diuretic Therapy Take 1 tablet (20 mg total) by mouth daily. Indications: Treatment with Diuretic Therapy 90 tablet 2 024 Active polyethylene glycol (GLYCOLAX) 17 GM/SCOOP powderIndicati ons:Constipati on Take 17 g by mouth daily as needed. Indications: Constipation 15 g 025 Active magnesium oxide (MAG-OX) 400 (240 Mg) MG tabletIndicati ons:Hypomagnes emia Take 1 tablet (400 mg total) by mouth daily. 30 tablet 025 Active insulin lispro prot & lispro (HUMALOG MIX 75-25) (75-25) 100 UNIT/ML injection (PEN) Inject 26 Units into the skin 2 (two) times a day. Active insulin lispro prot & lispro (HUMALOG MIX 75-25) (75-25) 100 UNIT/ML injection (PEN)Indicatio ns:Diabetes Mellitus Inject 10 Units into the skin daily. Indications: Diabetes 20 units in AM and 10 units in PM 5 pen. 11 024 2024 Discontinued(E rror) cefdinir (OMNICEF) 300 MG Cap capsuleIndicat ions:Sialadeni tis Take 1 capsule (300 mg total) by mouth 2 (two) times daily. Indications: Salivary Gland Inflammation 20 capsule 025 2024 Discontinued(E rror) doxycycline hyclate (VIBRA-TABS) 100 MG tabletIndicati ons:Sialadenit is Take 1 tablet (100 mg total) by mouth 2 (two) times daily for 10 days. Indications: Salivary Gland Inflammation 20 tablet 025 2024 cefdinir (OMNICEF) 300 MG Cap capsuleIndicat ions:Infection Take 300 mg by mouth 2 (two) times daily. Indications: Infection 025 2024 Discontinued Active Problems Problem Noted Date Diagnosed Date Urine retention 02/18/2025 Gross hematuria 02/18/2025 Acute bacterial sialadenitis 01/19/2025 Acute cholecystitis 01/10/2025 KATHRYN (acute kidney injury) 01/08/2025 Acute kidney injury 01/07/2025 Morbid (severe) obesity due to excess calories 0 12/03/2024 Body mass index (BMI) 40.0-44.9, adult Medial epicondylitis, left elbow 08/07/2024 Cellulitis 08/07/2024 History of replacement of both shoulder joints 1 Assessment & Plan (08/07/2024 9:14 AM CDT): At this point in time, we'll just have him give us a call back if he wants to proceed with anything regarding his shoulders, and we'll potentially get him over to Dr. De Luna and then for the elbow, We'll just see him back as needed as well. Diverticulitis 05/28/2024 Rhabdomyolysis 05/23/2024 SSS (sick sinus syndrome) ([facility]) 10/2022 Overview (12/01/2022): TASHA RANJANA PACEMAKER IMPLANTED 08/25/22 FOR BRADYCARDIA/SINUS NODE DYSFUNCTION S/P placement of cardiac pacemaker 08/26/2022 Overview (08/26/2022): TASHA RANJANA PACEMAKER IMPLANTED 08/25/22 FOR BRADYCARDIA/SINUS NODE DYSFUNCTION CHF (congestive heart failure) ([facility]) 08/24/2022 Severe sinus bradycardia 08/23/2022 Physical deconditioning 08/11/2022 Pulmonary embolism ([facility]) 08/04/2022 Acute respiratory failure with hypoxemia ([facility]) 08/03/2022 Sepsis ([facility]) 04/26/2022 Otitis externa 07/14/2021 Acute parotitis 03/24/2021 Chronic eczematous otitis externa of both ears 0 06/09/2020 BMI 45.0-49.9, adult 03/29/2019 CPAP (continuous positive airway pressure) depen dence 11/10/2017 Hypothyroidism 07/28/2017 Obesity 07/28/2017 Obstructive sleep apnea 07/28/2017 Impacted cerumen 02/23/2016 Subjective tinnitus 02/11/2015 Deafness, mixed type 11/20/2013 Pain in ear 11/12/2013 Arthralgia of shoulder 12/31/2010 Encounters * This document contains information received from the source organization and may not represent a complete record from that organization. Date Type Department Care Team Description 02/18/2025 Travel 02/17/2025 8:18 PM CDT - 02/18/2025 4:03 PM CDT Hospital Encounter [facility] Med/Surg [address] [place] [address] Chris Bowles MD Verma, Seema, MD Harris, Michael, MD Dodt, Amanda Alvarado APRN Urinary Retention Discharge Disposition: Transfer to Acute Care Hospital 02/17/2025 10:44 AM CDT - 02/17/2025 2:04 PM CDT Emergency [facility] Emergency Room [address] [place] [address] Alyssa Fernandez MD Hematuria Discharge Disposition: Home or Self Care (Routine Discharge) 02/17/2025 Travel 02/15/2025 11:30 AM CDT Home Care Visit [facility] [address] [place] [address] [place] [address] Sandra Neves LPN SN HOME VISIT 02/15/2025 Travel 02/12/2025 Travel 02/11/2025 9:45 AM CDT Home Care Visit [address] [place] [address] Sandra Neves LPN SN HOME VISIT 02/11/2025 Travel 02/08/2025 10:30 AM CDT Home Care Visit [address] [place] [address] [place] [address] Sandra Neves LPN SN HOME VISIT 02/06/2025 12:30 PM CDT Home Care Visit [address] [place] [address] [place] [address] Shelly Albert, PT PT DISCIPLINE DISCHARGE 02/05/2025 11:14 AM CDT - 02/05/2025 11:59 PM CDT Hospital Encounter [facility] [place] [address] Sonia Felix MD Discharge Disposition: Home or Self Care (Routine Discharge) 02/05/2025 11:14 AM CDT - 02/05/2025 2:50 PM CDT Hospital Encounter [facility] [place] [address] José Miguel Florian MD Discharge Disposition: Home or Self Care (Routine Discharge) 02/05/2025 Travel 02/04/2025 11:15 AM CDT Home Care Visit [facility] [address] [place] [address] Sandra Neves LPN SN HOME VISIT 02/04/2025 Hospital Orders Only [facility] [place] [address] Sonia Felix MD 02/04/2025 Orders Only [facility] [place] [address] Sonia Felix MD 02/04/2025 Pre-Procedure Call [facility] [place] [address] Sonia Felix MD Preprocedure Call 02/01/2025 11:15 AM CDT Home Care Visit [facility] [address] [place] [address] Sandra Neves LPN SN HOME VISIT 01/31/2025 11:00 AM CDT Home Care Visit [facility] Care [address] [place] [address] [place] [address] Manjula Owens, SENIOR ASIC ENGINEER SENIOR ASIC ENGINEER HOME VISIT 01/30/2025 11:30 AM CDT Office Visit [facility] [id number] [place] [phone] Alona Gant, MEAT PROCESSING CENTER MANAGER-C Follow Up (Pulmonary embolism); Sick Sinus Syndrome; Hypertension; Lipids 01/30/2025 9:14 AM CDT - 01/30/2025 10:00 AM CDT Hospital Encounter [facility] [place] [address] José Miguel Florian MD Discharge Disposition: Home or Self Care (Routine Discharge) 01/30/2025 8:55 AM CDT - 01/30/2025 9:11 AM CDT Hospital Encounter [facility] [place] [address] Sonia Felix MD Discharge Disposition: Home or Self Care (Routine Discharge) 01/30/2025 Travel 01/29/2025 11:15 AM CDT Home Care Visit [facility] [address] [place] [address] Manjula Owens, SENIOR ASIC ENGINEER SENIOR ASIC ENGINEER HOME VISIT 01/29/2025 [facility] [id number] [place] [phone] Alona Gant, MEAT PROCESSING CENTER MANAGER-C Isaac Samy birthdate 1935 01/28/2025 10:30 AM CDT Home Care Visit [facility] [address] [place] [address] Sandra Neves LPN SN HOME VISIT 01/25/2025 12:45 PM CDT Home Care Visit [facility] Care [address] [place] [address] Edgar Qureshi, OT OT INITIAL EVALUATION 01/25/2025 12:45 PM CDT Home Care Visit [address] [place] [address] Tara Dunne, RN SN HOME VISIT 01/24/2025 1:30 PM CDT Home Care Visit [facility] [address] [place] [address] Charlene Whitman, KNITTING MACHINE OPERATOR AUTOMATIC KNITTING MACHINE OPERATOR AUTOMATIC HH/HOSPICE TELEPHONE ENCOUNTER/VISIT 01/24/2025 1:00 PM CDT Home Care Visit [facility] Care [address] [place] [address] Shelly Albert, PT PT INITIAL EVALUATION 01/23/2025 10:30 AM CDT Home Care Visit [facility] [address] [place] [address] Peggy Meyers RN SN OASIS START OF CARE 01/23/2025 [facility] [address] [place] [address] Charlotte Dick, BAKERY DELIVERER Follow Up Call ([facility] 01/19-01/22/25) 01/23/2025 Plan of Care Documentation [facility] [address] [place] [address] 01/21/2025 Hospital Follow-up Call [facility] [address] [place] [phone] Charlotte Dick, BAKERY DELIVERER Follow Up Call ([facility] 01/14-01/17/25) 01/19/2025 10:37 AM CDT - 01/22/2025 11:07 AM CDT Hospital Encounter [facility] [address] [place] [address] Emily Morales MD Harris, Michael, MD Medical Problem Discharge Disposition: Home with Home Health Care 01/19/2025 Travel 01/18/2025 Telephone [facility] General Surgery [address], [address] [place] [address] Sarita Garcia MD Appointment Request 01/14/2025 3:08 PM CDT - 01/17/2025 3:11 PM CDT Hospital Encounter [facility] [address] [place] [address] Bong Small MD Harris, Michael, MD Discharge Disposition: Home with Home Health Care 01/14/2025 Travel 01/11/2025 [facility]phone [facility] [address] [place] [address] Meme Norris RN Referral (Swing bed referral to [facility]/JEZ from ELEANOR/) 01/10/2025 12:04 AM CDT - 01/14/2025 2:00 PM CDT [facility] [address] [place] [address] Enoch Reese MD Malcolm, MD Jonny Rico, Jeff De Leon MD Discharge Disposition: Swing Bed 01/10/2025 Travel 01/07/2025 9:00 PM CDT - 01/09/2025 11:00 PM CDT Hospital Encounter [facility] Medical/Surgical [address] [place] [address] Arely Holm MD Sahi, Reece Terry MD Discharge Disposition: Another Health Care Institution Not Defined 01/07/2025 2:40 PM CDT - 01/07/2025 8:31 PM CDT Emergency [facility] Emergency Room [id number] [place] [address] Kerwin Luevano MD Cough Discharge Disposition: Critical Access Hospital 01/07/2025 Travel 12/27/2024 7:45 AM OPTOMETRIC TECHNICIAN - 12/27/2024 11:59 PM OPTOMETRIC TECHNICIAN Hospital Encounter [facility] [address] [place] [address] Nevaeh Villalpando FNP Discharge Disposition: Home or Self Care (Routine Discharge) 12/27/2024 Orders Only [facility] [address] [place] [address] Nevaeh Villalpando FNP 12/27/2024 Travel 12/25/2024 Travel 12/23/2024 2:05 PM OPTOMETRIC TECHNICIAN Allied Health/Nurse Visit [facility], [address] [address] Javi Joseph MD Remote Device Check 12/17/2024 Travel 12/10/2024 Travel 12/05/2024 Travel 12/03/2024 8:58 AM OPTOMETRIC TECHNICIAN - 12/03/2024 11:59 PM OPTOMETRIC TECHNICIAN Hospital [place] [address] [place], [place] [id number] Javy Coles MD Discharge Disposition: Home or Self Care (Routine Discharge) 12/03/2024 8:40 AM OPTOMETRIC TECHNICIAN Office Visit [facility] [id number] [place] [phone] Nam Velasco DO Obstructive Sleep Apnea (On cpap ); Shortness Of Breath (On exertion; mostly with walking long distances ) 12/03/2024 Travel 11/27/2024 Travel 11/21/2024 Travel from Last 3 Months Immunizations Immunization Administration Dates Next Due Fluzone 6 Months+ Quad (0.5 mL Prefilled Syringe) 08/18/2022,08/04/2022(Deferred: Patient/family declined) Influenza Adult (Generic) 09/29/2018 PFIZER COVID-19 (ORIGINAL FORMULATION, PURPLE CAP) mRNA, LNP-S, PF, 30 MCG/0.3 ML DOSE 08/20/2021,01/29/2021,01/08/2021 Family History Medical History Relation Comments Colon Cancer Brother Relation Status Comments Brother Father Mother Social History Tobacco Use Types Packs/Day Years Used Date Smoking Tobacco: Never Smokeless Tobacco: Never Tobacco Cessation:Counseling Given: No Alcohol Use Standard Drinks/Week Comments Yes 13.3 [...] from your doctor or pharmacy? Often 01/07/2025 [facility] Utilities Answer Date Recorded In the past 12 months has e [employer], oil, or water [employer] threatened to shut off services in your [...] often do you attend chur ch or congregational services? Never 01/07/2025 Do you belong to any clubs o r organizations such as protestant groups, unions, fraternal or athletic groups, or [...] Recorded Patient Health Questionnaire-2 Score 2 01/07/2025 Citizen Of [place] of Occupat ional Health - Occupational Stress [...] any time in the past 12 m [facility], were you homeless or living in a snf (including now)? Yes 02/18/2025 Education Answer Date [...] Mass Index 41.22 02/18/2025 2:56 AM CDT Plan of Treatment Upcoming Encounters Date Type Department Care Team (Late st Contact Info) Description 02/22/2025 8:00 AM CDT Home Care Visit [address] [address] Tara Dunne, RN [phone] (Work) 02/25/2025 7:00 AM CDT Home Care Visit [address] [place] [address] Sandra Neves LPN 02/26/2025 10:30 AM CDT Appointment [facility] [place] [address] José Miguel Florian MD [address] [place] [address], [address] [address] 02/26/2025 12:00 PM CDT Appointment [place] [address] José Miguel Florian MD [address] [place] [address], [address] [address] 03/01/2025 8:00 AM CDT Home Care Visit [address] [place] [address] Tara Dunne RN [phone] (Work) 03/25/2025 2:20 PM CDT Allied Health[facility], [address] [place] [address] Chip Hansen MD [facility]. [address] [place] [address] 08/05/2025 2:40 PM CDT Office Visit [facility] [address] [place] [address] Nam Velasco DO [facility] [address] [place], [place] [address] 08/14/2025 12:30 PM CDT Office [facility] [address] [place] [phone] Javi Joseph MD [facility]. [facility] [address] [place] [address] Health Maintenance Due Date Last Done Comments Diabetes: Retinopathy Eye Exam 1953 DTaP, Tdap and Td Vaccines (1 - Tdap) 1954 Pneumococcal Vaccine: 50+ Years (1 of 2 - PCV) 1954 Zoster Vaccines (1 of 2) 1985 Annual Medicare Wellness Visit 2000 RSV Immunization or 60+ Years (1 - 1-dose 75+ series) 2010 COVID-19 Vaccine ( - season) 2024 03/01/2022, 08/20/2021, 01/29/2021, Additional history exists Hemoglobin A1C 04/10/2025 01/08/2025, 10/0 03/2022, 08/12/2020, Additional history exists Lipid Panel 12/27/2025 12/27/2024, 05/31, 05/24/2024, Additional history exists PHQ-2 (Physician Carroll) Completed 01/07/2025 Meningococcal B Vaccine Aged Out No l onger eligible based on patient's age to complete this topic Meningococcal Vaccine Aged Out No tali juan eligible based on patient's age to complete this topic RSV Immunizations Under 20 Months Aged Out No longer eligible based on patient's age to complete this topic Goals Goal Patient Goal Type Associated Problems Recent Progress Patient-Stated? Author Health - patient able to perform ADLs independently General No Vanessa Bhat RN Safety - demonstrates understanding of home safety measures Lifestyle No Gabriella [place] RN Safety - demonstrates understanding of home safety measures Lifestyle No Gabriella [place] RN Family - family caregiver with be involved in care transitions and discharge planning Lifestyle No Marj Patel RN Family - family caregiver with be involved in care transitions and discharge planning Lifestyle No Kristina Rees RN Medical Devices Implanted Type Area Automatic Quilling Machine Operator Device Identifier Shelf Expiration Date Model / Serial / Lot Ra Lead-08/25/20 Implanted: by Chip Hansen MD (Quantity not on file) Lead Implant [employer] CARDIAC RHYTHM AND HEART FAILURE - DIV M [id number] 06/29/2024 [id number] / [id number] / Description:APPENDAGE Rv Lead-08/25/20 Implanted: by Chip Hansen MD (Quantity not on file) Lead Implant [employer] CARDIAC RHYTHM AND HEART FAILURE - DIV M [id number] 06/16/2024 [id number] / [id number] / Description:SEPTUM Mdt Pacemaker- Implanted: by Chip Hansen MD (Quantity not on file) Pacemaker [employer] CARDIAC RHYTHM AND HEART FAILURE - DIV M [id number] 01/12/2024 [id number] / [id number] / Knee Shoulder Procedures Procedure Name Priority Date/Time Associated Diagnosis Comments HEMOGLOBIN AND HEMATOCRIT TIMED 02/18/2025 3:27 PM CDT POCT GLUCOSE - BORGES DOCKED DEVICE Routine 02/18/2025 11:27 AM CDT POCT GLUCOSE - BORGES DOCKED DEVICE Routine 02/18/2025 7:46 AM CDT MAGNESIUM STAT 02/18/2025 5:33 AM CDT COMPREHENSIVE METABOLIC PANEL STAT 02/18/2025 5:33 AM CDT CBC W/DIFF AUTOMATED STAT 02/18/2025 5:33 AM CDT BASIC METABOLIC PANEL STAT 02/17/2025 10:15 PM CDT CBC W/DIFF AUTOMATED STAT 02/17/2025 10:[address] ABD+PEL WO CON STAT 02/17/2025 12: 37 PM CDT URINALYSIS, AUTO, COMPLETE STAT 02/17/2025 11:06 AM CDT PROTHROMBIN TIME, VENOUS STAT 02/17/2025 10:53 AM CDT CBC W/DIFF AUTOMATED STAT 02/17/2025 10:53 AM CDT COMPREHENSIVE METABOLIC PANEL STAT 02/17/2025 10:53 AM CDT IR BILIARY CATH CHG Routine 02/05/2025 1 :06 PM CDT Cholecystitis POCT GLUCOSE - BORGES DOCKED DEVICE Routine 02/05/2025 12:19 PM CDT PROTHROMBIN TIME, VENOUS Routine 02/05/2025 11:21 AM CDT Acute cholecystitis PARTIAL THROMBOPLASTIN TIME,PTT Routine 02/05/2025 11:21 AM CDT Acute cholecystitis PLATELET COUNT, AUTO Routine 02/05/2025 11:21 AM CDT Acute cholecystitis POCT GLUCOSE - BORGES DOCKED DEVICE Routine 01/22/2025 7:06 AM CDT POCT GLUCOSE - BORGES DOCKED DEVICE Routine 01/21/2025 11:42 PM CDT POCT GLUCOSE - BORGES DOCKED DEVICE Routine 01/21/2025 7:40 PM CDT OCCULT BLOOD, FECES Routine 01/21/2025 5 :47 PM CDT POCT GLUCOSE - BOGRES DOCKED DEVICE Routine 01/21/2025 4:21 PM CDT POCT GLUCOSE - BORGES DOCKED DEVICE Routine 01/21/2025 11:52 AM CDT POCT GLUCOSE - BORGES DOCKED DEVICE Routine 01/21/2025 11:40 AM CDT POCT GLUCOSE - BORGES DOCKED DEVICE Routine 01/21/2025 7:05 AM CDT VANCOMYCIN Routine 01/21/2025 5:38 AM CDT POCT GLUCOSE - BORGES DOCKED DEVICE Routine 01/20/2025 7:52 PM CDT POCT GLUCOSE - BORGES DOCKED DEVICE Routine 01/20/2025 4:51 PM CDT POCT GLUCOSE - BORGES DOCKED DEVICE Routine 01/20/2025 11:13 AM CDT POCT GLUCOSE - BORGES DOCKED DEVICE Routine 01/20/2025 7:51 AM CDT BASIC METABOLIC PANEL Routine 01/20/2025 7:31 AM CDT CBC W/DIFF AUTOMATED Routine 01/20/2025 7:31 AM CDT POCT GLUCOSE - BORGES DOCKED DEVICE Routine 01/19/2025 9:35 PM CDT LACTIC ACID W REFLEX (SEPSIS) TIMED 01/19/2025 1:[address] CERV SPINE WO CON STAT 01/19/2025 12:[address] FACIAL BONES WO CON STAT 11:23 AM CDT ECG 12-LEAD Routine 01/19/2025 11:02 AM CDT CULTURE, BACTERIA, BLOOD STAT 01/19/2025 10:50 AM CDT MAGNESIUM STAT 01/19/2025 10:50 AM CDT LACTIC ACID W REFLEX (SEPSIS) STAT 01/19/2025 10:50 AM CDT LIPASE STAT 01/19/2025 10:50 AM CDT COMPREHENSIVE METABOLIC PANEL STAT 01/19/2025 10:50 AM CDT PARTIAL THROMBOPLASTIN TIME,PTT STAT 01/19/2025 10:50 AM CDT PROTHROMBIN TIME, VENOUS STAT 01/19/2025 10:50 AM CDT CBC W/DIFF AUTOMATED STAT 01/19/2025 10:50 AM CDT POCT GLUCOSE - BORGES DOCKED DEVICE Routine 01/17/2025 11:26 AM CDT POCT GLUCOSE - BORGES DOCKED DEVICE Routine 01/17/2025 7:17 AM CDT POCT GLUCOSE - BORGES DOCKED DEVICE Routine 01/16/2025 7:55 PM CDT POCT GLUCOSE - BORGES DOCKED DEVICE Routine 01/16/2025 4:29 PM CDT POCT GLUCOSE - BORGES DOCKED DEVICE Routine 01/16/2025 11:28 AM CDT POCT GLUCOSE - BORGES DOCKED DEVICE Routine 01/16/2025 7:33 AM CDT POCT GLUCOSE - BORGES DOCKED DEVICE Routine 01/15/2025 8:48 PM CDT POCT GLUCOSE - BORGES DOCKED DEVICE Routine 01/15/2025 4:29 PM CDT POCT GLUCOSE - BORGES DOCKED DEVICE Routine 01/15/2025 11:28 AM CDT COMPREHENSIVE METABOLIC PANEL STAT 01/15/2025 10:48 AM CDT POCT GLUCOSE - BORGES DOCKED DEVICE Routine 01/15/2025 7:51 AM CDT POCT GLUCOSE - BORGES DOCKED DEVICE Routine 01/14/2025 7:38 PM CDT POCT GLUCOSE - BORGES DOCKED DEVICE Routine 01/14/2025 4:12 PM CDT POCT GLUCOSE - BORGES DOCKED DEVICE Routine 01/14/2025 10:53 AM CDT POCT GLUCOSE - BORGES DOCKED DEVICE Routine 01/14/2025 6:41 AM CDT CBC W/DIFF AUTOMATED Routine 01/14/2025 3:20 AM CDT BASIC METABOLIC PANEL Routine 01/14/2025 3:20 AM CDT POCT GLUCOSE - BORGES DOCKED DEVICE Routine 01/13/2025 8:14 PM CDT POCT GLUCOSE - BORGES DOCKED DEVICE Routine 01/13/2025 4:36 PM CDT POCT GLUCOSE - BORGES DOCKED DEVICE Routine 01/13/2025 11:21 AM CDT POCT GLUCOSE - BORGES DOCKED DEVICE Routine 01/13/2025 7:45 AM CDT CBC W/DIFF AUTOMATED Routine 01/13/2025 3:10 AM CDT BASIC METABOLIC PANEL Routine 01/13/2025 3:10 AM CDT POCT GLUCOSE - BORGES DOCKED DEVICE Routine 01/12/2025 9:04 PM CDT POCT GLUCOSE - BORGES DOCKED DEVICE Routine 01/12/2025 4:38 PM CDT POCT GLUCOSE - BORGES DOCKED DEVICE Routine 01/12/2025 11:56 AM CDT POCT GLUCOSE - BORGES DOCKED DEVICE Routine 01/12/2025 6:41 AM CDT CBC W/DIFF AUTOMATED Routine 01/12/2025 4:20 AM CDT BASIC METABOLIC PANEL Routine 01/12/2025 4:20 AM CDT MAGNESIUM Routine 01/12/2025 4:20 AM CDT POCT GLUCOSE - BORGES DOCKED DEVICE Routine 01/11/2025 7:51 PM CDT POCT GLUCOSE - BORGES DOCKED DEVICE Routine 01/11/2025 4:45 PM CDT POCT GLUCOSE - BORGES DOCKED DEVICE Routine 01/11/2025 12:13 PM CDT IR CHOLECYSTOSTOMY PLCMT Today 01/11/2025 11:20 AM CDT CULTURE, WOUND, W/GRAM STAIN Routine 01/11/2025 11:04 AM CDT POCT GLUCOSE - BORGES DOCKED DEVICE Routine 01/11/2025 6:17 AM CDT MAGNESIUM Routine 01/11/2025 4:13 AM CDT BASIC METABOLIC PANEL Routine 01/11/2025 4:13 AM CDT CBC W/DIFF AUTOMATED Routine 01/11/2025 4:13 AM CDT POCT GLUCOSE - BORGES DOCKED DEVICE Routine 01/10/2025 8:27 PM CDT POCT GLUCOSE - BORGES DOCKED DEVICE Routine 01/10/2025 4:02 PM CDT POCT GLUCOSE - BORGES DOCKED DEVICE Routine 01/10/2025 12:00 PM CDT PARTIAL THROMBOPLASTIN TIME,PTT Routine 01/10/2025 8:21 AM CDT PROTHROMBIN TIME, VENOUS Routine 01/10/2025 8:21 AM CDT MAGNESIUM Routine 01/10/2025 6:19 AM CDT BASIC METABOLIC PANEL Routine 01/10/2025 6:19 AM CDT CBC W/DIFF AUTOMATED Routine 01/10/2025 6:19 AM CDT POCT GLUCOSE - BORGES DOCKED DEVICE Routine 01/10/2025 6:15 AM CDT POCT GLUCOSE - BORGES DOCKED DEVICE Routine 01/10/2025 5:39 AM CDT HC URINALYSIS AUTO W/O MICRO Routine 01/10/2025 4:28 AM CDT POCT GLUCOSE - BORGES DOCKED DEVICE Routine 01/09/2025 9:04 PM CDT US ABD LIMITED STAT 01/09/2025 7:[address] ABD+PEL WO CON STAT 01/09/2025 7:0 0 PM CDT POCT GLUCOSE - BORGES DOCKED DEVICE Routine 01/09/2025 6:27 PM CDT POCT GLUCOSE - BORGES DOCKED DEVICE Routine 01/09/2025 4:[address] CHEST WO CON STAT 01/09/2025 3:05 PM CDT POCT GLUCOSE - BORGES DOCKED DEVICE Routine 01/09/2025 11:19 AM CDT RESPIRATORY PCR PANEL 2 Routine 01/10/20 11:09 AM CDT XR CHEST PA+LAT STAT 01/09/2025 10:53 AM CDT HEPATIC FUNCTION PANEL Routine 7:43 AM CDT POCT GLUCOSE - BORGES DOCKED DEVICE Routine 01/09/2025 7:39 AM CDT WBC WI DIFFERENTIAL TIMED 01/09/2025 6 :00 AM CDT MAGNESIUM Routine 01/09/2025 6:00 AM CDT BASIC METABOLIC PANEL Routine 01/09/2025 6:00 AM CDT CBC W/DIFF AUTOMATED Routine 01/09/2025 6:00 AM CDT POCT GLUCOSE - BORGES DOCKED DEVICE Routine 01/08/2025 9:20 PM CDT POCT GLUCOSE - BORGES DOCKED DEVICE Routine 01/08/2025 4:02 PM CDT POCT GLUCOSE - BORGES DOCKED DEVICE Routine 01/08/2025 11:40 AM CDT BASIC METABOLIC PANEL Routine 01/08/2025 6:05 AM CDT THYROID STIM HORMONE TSH Routine 01/08/2025 6:05 AM CDT HEMOGLOBIN, GLYCOSYLATED Routine 01/08/2025 6:05 AM CDT MAGNESIUM Routine 01/08/2025 6:05 AM CDT PROTHROMBIN TIME, VENOUS Routine 01/08/2025 6:05 AM CDT CBC W/DIFF AUTOMATED Routine 01/08/2025 6:05 AM CDT POCT GLUCOSE - BORGES DOCKED DEVICE Routine 01/07/2025 11:00 PM CDT COMPREHENSIVE METABOLIC PANEL STAT 01/07/2025 1:46 PM CDT CBC W/DIFF AUTOMATED STAT 01/07/2025 1:46 PM CDT XR CHEST PORTABLE STAT 01/07/2025 1:4 0 PM CDT CORONAVIRUS (COVID 19) STAT 12:59 PM CDT RESP SYNCYTIAL VIRUS STAT 01/07/2025 12:59 PM CDT INFLUENZA A & B STAT 01/07/2025 12:59 PM CDT STREP A RAPID STAT 01/07/2025 12:59 PM CDT ALBUMIN URINE RANDOM W/CREATININE Routine 12/27/2024 8:50 AM OPTOMETRIC TECHNICIAN Hyperlipidemia Essential (primary) hypertension Type 2 diabetes mellitus with ESRD (end-stage renal disease) ([facility] HHS/HCC) Stage 3b chronic kidney disease ([facility]/HCC) Encounter for long-term (current) use of insulin ([facility] HHS/HCC) Chronic kidney disease, stage III (moderate) ([facility]/HCC) VITAMIN D, 25 OH Routine 12/27/2024 8:47 AM OPTOMETRIC TECHNICIAN Hyperlipidemia Essential (primary) hypertension Type 2 diabetes mellitus with ESRD (end-stage renal disease) (CMS/HCC HHS/HCC) Stage 3b chronic kidney disease (CMS/HCC) Encounter for long-term (current) use of insulin (CMS/HCC HHS/HCC) Chronic kidney disease, stage III (moderate) (CMS/HCC) THYROXINE, FREE (FT4) Routine 12/27/2024 8:47 AM OPTOMETRIC TECHNICIAN Hyperlipidemia Essential (primary) hypertension Type 2 diabetes mellitus with ESRD (end-stage renal disease) (CMS/HCC HHS/HCC) Stage 3b chronic kidney disease (CMS/HCC) Encounter for long-term (current) use of insulin (CMS/HCC HHS/HCC) Chronic kidney disease, stage III (moderate) (CMS/HCC) LIPID PANEL Routine 12/27/2024 8:47 AM OPTOMETRIC TECHNICIAN Hyperlipidemia Essential (primary) hypertension Type 2 diabetes mellitus with ESRD (end-stage renal disease) (CMS/HCC HHS/HCC) Stage 3b chronic kidney disease (CMS/HCC) Encounter for long-term (current) use of insulin (CMS/HCC HHS/HCC) Chronic kidney disease, stage III (moderate) (CMS/HCC) COMPREHENSIVE METABOLIC PANEL Routine 12/27/2024 8:47 AM OPTOMETRIC TECHNICIAN Hyperlipidemia Essential (primary) hypertension Type 2 diabetes mellitus with ESRD (end-stage renal disease) (CMS/HCC HHS/HCC) Stage 3b chronic kidney disease (CMS/HCC) Encounter for long-term (current) use of insulin ([facility]/HCC HHS/HCC) Chronic kidney disease, stage III (moderate) (CMS/HCC) VITAMIN B-12 Routine 12/27/2024 8:47 AM OPTOMETRIC TECHNICIAN Hyperlipidemia Essential (primary) hypertension Type 2 diabetes mellitus with ESRD (end-stage renal disease) (CMS/HCC HHS/HCC) Stage 3b chronic kidney disease (CMS/HCC) Encounter for long-term (current) use of insulin (CMS/HCC HHS/HCC) Chronic kidney disease, stage III (moderate) (CMS/HCC) THYROID STIM HORMONE TSH Routine 12/27/2024 8:47 AM OPTOMETRIC TECHNICIAN Hyperlipidemia Essential (primary) hypertension Type 2 diabetes mellitus with ESRD (end-stage renal disease) (CMS/HCC HHS/HCC) Stage 3b chronic kidney disease (CMS/HCC) Encounter for long-term (current) use of insulin (CMS/HCC HHS/HCC) Chronic kidney disease, stage III (moderate) (CMS/HCC) CT ABD+PEL WO CON Routine 12/03/2024 10: 01 AM OPTOMETRIC TECHNICIAN Malignant neoplasm of lateral wall of bladder (CMS/HCC HHS/HCC) from Last 3 Months Results * (ABNORMAL) HEMOGLOBIN AND HEMATOCRIT (02/18/2025 3:27 PM CDT) HGB 11.4(L) 14.0 - 17.5 G/DL 02/18/2025 3:31 PM CDT [facility] HCT 33.7(L) 41.5 - 50.4 % 02/18/2025 3:31 PM CDT [facility] 02/18/2025 3:27 PM CDT Amanda Fritz MANAGER PERIOPERATIVE LABORATORY Final Result Performing Organization Address City/[facility]/ZIP Co de Phone Number [facility] [address] [place] [address], [place] [phone] * (ABNORMAL) POCT glucose (02/18/2025 11:27 AM CDT) Only the most recent of55 resultswithin the time period is included. GLUCOSE POC 194(H) 70 - 110 mg/dL 02/18/2025 11:56 AM CDT [facility] 02/18/2025 11:2 7 AM CDT Amanda Fritz MANAGER PERIOPERATIVE POCT ORDERABLES - DEVICE Final Result Performing Organization Address City/[facility]/ZIP Co de Phone Number [facility] [address] [place] [address], [place] [phone] * (ABNORMAL) COMPREHENSIVE METABOLIC PANEL (02/18/2025 5:33 AM CDT) Only the most recent of6 resultswithin the time period is included. [facility] GLUCOSE 185(H) 70 - 99 MG/DL 02/18/2025 6:23 AM T [facility] BUN 23(H) 7 - 18 MG/DL 02/18/2025 6:23 AM T [facility] CREATININE S/P/B 1.76(H) 0.7 - 1.3 MG/DL 02/18/2025 6:23 AM [facility] SODIUM S/P/B 138 136 - 145 MMOL/L 02/18/2025 6:23 AM [facility] POTASSIUM S/P/B 4.3 3.5 - 5.1 MMOL/L 02/18/2025 6:23 AM [facility] CHLORIDE S/P/B 100 100 - 108 MMOL/L 02/18/2025 6:23 AM [facility] CO2 29.9 21 - 32 MMOL/L 02/18/2025 6:23 AM [facility] CALCIUM S/P/B 9.0 8.5 - 10.1 MG/DL 02/18/2025 6:23 AM [facility] BILIRUBIN TOTAL S/P/B 0.8 0.2 - 1.2 MG/DL 02/18/2025 6:23 AM [facility] TOTAL PROTEIN S/P/B 6.3(L) 6.4 - 8.2 G/DL 02/18/2025 6:23 AM [facility] ALBUMIN S/P/B 2.5(L) 3.4 - 5.0 G/DL 02/18/2025 6:23 AM [facility] AST 15 15 - 37 U/L 02/18/2025 6:23 AM CDT [facility] ALT 25 16 - 60 U/L 02/18/2025 6:23 AM CDT [facility] ALKALINE PHOSPHATASE S/P/B 76 50 - 136 U/L 02/18/2025 6:23 AM CDT [facility] ANION GAP 8.1 5 - 15 MMOL/L 02/18/2025 6:23 AM T [facility] BUN CREATININE RATIO 13.1 6 - 26 02/18/2025 6:23 AM T [facility] A/G RATIO 0.7(L) 1.0 - 2.0 RATIO 02/18/2025 6:23 AM T [facility] GFR ESTIMATE 37(L) >90 ML/MIN/1.7 3 M2 02/18/2025 6:23 AM T [facility] Comment: NOTE: eGFR is not calculated for patients <18 years of age. This is an estimated GFR calculation using the new CKD EPI creatinine equation without race and so does not require a correction factor for race. This estimated GFR should not be used for calculating drug doses. 02/18/2025 5:33 AM CDT Pam Vargas MD LABORATORY Final Result [facility] [address] [place] [address], * (ABNORMAL) CBC W/DIFF AUTOMATED (02/18/2025 5:33 AM CDT) Only the most recent of13 resultswithin the time period is included. WBC 7.87 4.4 - 11.0 x10'3/uL 02/18/2025 6:04 AM CDT [facility] RBC 3.92(L) 4.50 - 5.90 x10'6/uL 02/18/2025 6:04 AM CDT [facility] HGB 11.9(L) 14.0 - 17.5 G/DL 02/18/2025 6:04 AM T [facility] HCT 35.9(L) 41.5 - 50.4 % 02/18/2025 6:04 AM T [facility] MCV 91.6 80.0 - 96.0 FL 02/18/2025 6:04 AM T [facility] MCH 30.4 26.5 - 31.4 PG 02/18/2025 6:04 AM T [facility] MCHC 33.1 31.9 - 34.8 G/DL 02/18/2025 6:04 AM T [facility] RDW 13.4 12.3 - 14.3 % 02/18/2025 6:04 AM [facility] PLT 248 151 - 353 x10'3/uL 02/18/2025 6:04 AM [facility] MPV 9.0(L) 9.7 - 11.9 FL 02/18/2025 6:04 AM [facility] RBC MORPHOLOGY NORMAL 02/18/2025 6:04 AM T [facility] PLT MORPH. NORMAL 02/18/2025 6:04 AM T [facility] WBC MORPHOLOGY NORMAL 02/18/2025 6:04 AM T [facility] LYMPHOCYTES % 13.2(L) 15.8 - 45.0 % 02/18/2025 6:04 AM T [facility] NEUTROPHILS % 68.5 42.1 - 71.9 % 02/18/2025 6:04 AM T [facility] MONOCYTES % 14.6(H) 5.7 - 12.5 % 02/18/2025 6:04 AM CDT [facility] EOSINOPHILS 2.8 0.0 - 5.6 % 02/18/2025 6:04 AM CDT [facility] BASOPHILS 0.5 0.0 - 1.3 % 02/18/2025 6:04 AM CDT [facility] ABS. NEUTROPHILS 5.39 1.40 - 6.00 x10'3/uL 02/18/2025 6:04 AM CDT [facility] IMMATURE GRANS % 0.4 0.0 - 0.5 % 02/18/2025 6:04 AM CDT [facility] ABS. LYMPHOCYTES 1.04 0.80 - 4.70 x10'3/uL 02/18/2025 6:04 AM CDT [facility] 02/18/2025 5:33 AM CDT us Pam Vargas MD LABORATORY Final Result [facility] [address] [place] [address], [place] [phone] * MAGNESIUM (02/18/2025 5:33 AM CDT) Only the most recent of7 resultswithin the time period is included. MAGNESIUM 1.8 1.8 - 2.4 MG/DL 02/18/2025 6:23 AM CDT [facility] 02/18/2025 5:33 AM CDT us Pam Vargas MD LABORATORY Final Result [facility] [address] [place] [address], [place] [phone] * (ABNORMAL) BASIC METABOLIC PANEL (02/17/2025 10:15 PM CDT) Only the most recent of9 resultswithin the time period is included. [facility] GLUCOSE 181(H) 70 - 99 MG/DL 02/17/2025 10:37 PM T [facility] BUN 29(H) 7 - 18 MG/DL 02/17/2025 10:37 PM T [facility] CREATININE S/P/B 1.87(H) 0.7 - 1.3 MG/DL 02/17/2025 10:37 PM T [facility] SODIUM S/P/B 134(L) 136 - 145 MMOL/L 02/17/2025 10:37 PM [facility] POTASSIUM S/P/B 4.6 3.5 - 5.1 MMOL/L 02/17/2025 10:37 PM T [facility] CHLORIDE S/P/B 99(L) 100 - 108 MMOL/L 02/17/2025 10:37 PM [facility] CO2 28.1 21 - 32 MMOL/L 02/17/2025 10:37 PM [facility] CALCIUM S/P/B 9.1 8.5 - 10.1 MG/DL 02/17/2025 10:37 PM [facility] ANION GAP 6.9 5 - 15 MMOL/L 02/17/2025 10:37 PM [facility] BUN CREATININE RATIO 15.5 6 - 26 02/17/2025 10:37 PM [facility] GFR ESTIMATE 34(L) >90 ML/MIN/1.7 3 M2 02/17/2025 10:37 PM [facility] Comment: NOTE: eGFR is not calculated for patients <18 years of age. This is an estimated GFR calculation using the new CKD EPI creatinine equation without race and so does not require a correction factor for race. This estimated GFR should not be used for calculating drug doses. 02/17/2025 10:1 5 PM CDT us Chris Bowles MD LABORATORY Final Resul t [facility] [address] [place] [address], * CT ABD+PEL WO CON (02/17/2025 12:37 PM CDT) Only the most recent of3 resultswithin the time period is included. Anatomical Region Laterality Modality Abdomen Computed Tomogra [...] 1:01 PM Narrative 02/17/2025 1:12 PM CDT [facility] [address] [facility] [place] [address] Examination: CT ABD+PEL WO CON Exam time: [...] Procedure Note Daryl Arboleda MD - 02/17/2025 [facility] [address] [place] [address] Examination: CT ABD+PEL WO CON Exam time: [...] COLOR (U) RED 02/17/2025 11:21 AM CDT [facility] TRANSPARENCY TURBID 02/17/2025 11:21 AM CDT [facility] SPECIFIC GRAVITY (U) 1.020 1.000 - 1.030 02/17/2025 11:21 AM CDT [facility] U PH 6.5 5.0 - 9.0 02/17/2025 11:21 AM T [facility] LEUKOCYTES (U) 1+(A) NEGATIVE 02/17/2025 11:21 AM T [facility] NITRITES POSITIVE(A) NEGATIVE 02/17/2025 11:21 AM T [facility] PROTEIN RANDOM (U) 3+(A) NEGATIVE 02/17/2025 11:21 AM T [facility] GLUCOSE (U) TRACE(A) NEGATIVE 02/17/2025 11:21 AM T [facility] KETONES MG/DL (U) NEGATIVE NEGATIVE 02/17/2025 11:21 AM T [facility] BILIRUBIN (U) NEGATIVE NEGATIVE 02/17/2025 11:21 AM [facility] BLOOD (U) 3+(A) NEGATIVE 02/17/2025 11:21 AM T [facility] WBC/HPF 5-10 0 - 5 /HPF 02/17/2025 11:21 AM [facility] RBC/HPF TOO NUMEROUS TO COUNT 0 - 5 /HPF 02/17/2025 11:21 AM T [facility] EPI/HPF NONE SEEN /HPF 02/17/2025 11:21 AM T [facility] BACTERIA (U) MODERATE /HPF 02/17/2025 11:21 AM T [facility] URINE SPECIMEN OBTAINED BY CLEAN CATCH PROCEDURE / Unknown 02/17/2025 11:06 AM CDT us Alyssa Fernandez MD URINE ORDERABLES Final Result [facility] [address] [place] [address], [place] [phone] * (ABNORMAL) PROTIME/INR, VENOUS (02/17/2025 10:53 AM CDT) Only the most recent of5 resultswithin the time period is included. PROTIME 17.8(H) 9.1 - 12.4 SEC 02/17/2025 11:17 AM CDT [facility] INR 1.6 02/17/2025 11:17 AM CDT [facility] Comment: Recommend INR ranges for Oral Anticoagulant Therapy: Mechanical Cardiac Values 2.5-3.5 All others indication 2.0-3.0 02/17/2025 10:5 3 AM CDT Alyssa Fernandez MD LABORATORY Final Result [facility] [address] [place] [address], [place] [phone] * IR BILIARY CATH CHG (02/05/2025 1:06 PM CDT) Anatomical Region Laterality Modality Abdomen Interventional R adiology, Radiographic Imaging, Radiographic Imaging 02/05/2025 12:5 8 PM CDT Impressions 02/05/2025 1:07 PM CDT =====IMPRESSION:===== Procedure note for right transhepatic percutaneous cholecystostomy catheter exchange performed over the wire with fluoroscopy. Ordered By: JOSÉ MIGUEL FLORIAN Interpreted By: Sonia Felix MD, 02/05/2025 12:58 PM Narrative 02/05/2025 1:07 PM CDT [facility] [address] [place], [place] [address] Procedure: IR cholecystostomy catheter exchange with flouroscopy Exam Date/Time: 02/05/2025 1:06 PM Indication:89 male presenting for attempted repeat percutaneous cholecystostomy catheter exchange Comparison: Cholecystostomy placement 01/11/2025; CT abdomen pelvis 01/09/2025. Technique and findings: Informed verbal and consent was obtained from the patient, patient's medical power of real estate associate attorney. The procedure was discussed including the rationale, alternatives, benefits and risks including but not limited to infection, bleeding, damage to the kidney and failure to place a drain. Patient was positioned prone on the fluoroscopy table. The indwelling right percutaneous cholecystostomy catheter was exposed, and thoroughly cleaned with a chlorhexidine solution, along with the catheter exit site. The skin was prepped and draped. Timeout was performed. Procedure was performed with administration of local anesthesia only. Continuous cardiorespiratory monitoring was performed by the interventional procedure nurse including pulse, blood pressure, and oxygen saturation, under supervision of the interventional radiologist. Total intraprocedure [id number] time with the radiologist was 17 minutes. Medications: Clindamycin 600 mg IV 1% lidocaine was administered for local anesthesia at the catheter exit site. Fluoroscopy was performed demonstrating a right transhepatic percutaneous cholecystostomy catheter in place. The pigtail appears to be unformed. Dilute contrast was injected nephroscopy outlining the gallbladder lumen. The catheter was cut releasing the pigtail and a stiff Amplatz wire placed through the catheter into the gallbladder lumen. The catheter was removed over the wire and a new 8.5 Greek locking pigtail percutaneous multipurpose drainage catheter advanced over the wire and positioned inside the gallbladder lumen. The pigtail was formed and locked. Position was confirmed with the dilute contrast administration. Catheter was secured to skin with 2. 0 Ethilon suture and placed to gravity drainage. There is good of the slightly turbid green bile from the catheter. Radiation dose Air Kerma: 42.86 mGy; 3 sets of fluoroscopy images recorded. State Inspector: Dr. Felix Estimated blood loss: None Procedure Note Sonia Felix MD - 02/05/2025 [facility] [address] [place], [place] [address] Procedure: IR cholecystostomy catheter exchange with flouroscopy Exam Date/Time: 02/05/2025 1:06 PM Indication:89 male presenting for attempted repeat percutaneouscholecystostomy catheter exchange Comparison: Cholecystostomy placement 01/11/2025; CT abdomen pelvis01/09/2025. Technique and findings: Informed verbal and consent was obtained from thepatient, patient's medical power of real estate associate attorney. The procedure was discussedincluding the rationale, alternatives, benefits and risks including butnot limited to infection, bleeding, damage to the kidney and failure toplace a drain. Patient was positioned prone on the fluoroscopy table. The indwelling right percutaneous cholecystostomy catheter was exposed,and thoroughly cleaned with a chlorhexidine solution, along with thecatheter exit site. The skin was prepped and draped. Timeout was performed. Procedure was performed with administration of local anesthesia only.Continuous cardiorespiratory monitoring was performed by theinterventional procedure nurse including pulse, blood pressure, and oxygensaturation, under supervision of the interventional radiologist. Total intraprocedure [id number] time with the radiologist was 17minutes. Medications: Clindamycin 600 mg IV 1% lidocaine was administered for local anesthesia at the catheter exitsite. Fluoroscopy was performed demonstrating a right transhepaticpercutaneous cholecystostomy catheter in place. The pigtail appears to beunformed. Dilute contrast was injected nephroscopy outlining thegallbladder lumen. The catheter was cut releasing the pigtail and a stiff Amplatz wire placedthrough the catheter into the gallbladder lumen. The catheter was removedover the wire and a new 8.5 Greek locking pigtail percutaneousmultipurpose drainage catheter advanced over the wire and positionedinside the gallbladder lumen. The pigtail was formed and locked. Positionwas confirmed with the dilute contrast administration. Catheter was secured to skin with 2. 0 Ethilon suture and placed togravity drainage. There is good of the slightly turbid green bile from thecatheter. Radiation dose Air Kerma: 42.86 mGy; 3 sets of fluoroscopy imagesrecorded. State Inspector: Dr. Felix Estimated blood loss: None =====IMPRESSION:===== Procedure note for right transhepatic percutaneous cholecystostomycatheter exchange performed over the wire with fluoroscopy. Ordered By: JOSÉ MIGUEL FLORIAN Interpreted By: Sonia Felix MD, 02/05/2025 12:58 PM José Miguel Florian MD INTERVENTIONAL RADIOLOGY Fi nal Result * (ABNORMAL) PLATELET COUNT, AUTO (02/05/2025 11:21 AM CDT) Pathologist [facility] PLT 248 130 - 400 x10'3/uL 02/05/2025 11:33 AM CDT [facility] MPV 8.8(L) 9.3 - 12.2 FL 02/05/2025 11:33 AM CDT [facility] 02/05/2025 11:2 1 AM CDT Sonia Felix MD LABORATORY Final Result [facility] [address] [place] [address], [place] [phone] * PTT, PARTIAL THROMBOPLASTIN TIME (02/05/2025 11:21 AM CDT) Only the most recent of3 resultswithin the time period is included. [facility] PTT 34.1 25.1 - 36.5 SEC 02/05/2025 11:48 AM CDT [facility] 02/05/2025 11:2 1 AM CDT Sonia Felix MD LABORATORY Final Result [facility] [address] [place] [address], [place] [phone] * OCCULT BLOOD, FECES (01/21/2025 5:47 PM CDT) Pathologist [facility] OCCULT BLOOD FECAL NEGATIVE NEGATIVE 01/21/2025 6:46 PM CDT [facility] STOOL SPECIMEN / Unknown 01/21/2025 5:47 PM CDT us Chip Sloan MD BODY FLUIDS AND STOOLS ORDERAB LES Final Result Performing Organization Address [facility]/ZIP Co de Phone Number [facility] [address] [place] [address], [place] [phone] * Vancomycin Random Level (01/21/2025 5:38 AM CDT) VANCOMYCIN RANDOM 18.5 MCG/ML 01/21/2025 12:50 PM CDT [facility] Comment: [place] [address] NO THERAPEUTIC RANGE AVAILABLE LAST DOSE UNKNOWN LAST DOSE 01/21/2025 7:08 AM CDT [facility] 01/21/2025 5:38 AM CDT us Chip Sloan MD LABORATORY Final Result Performing Organization Address [facility] Co de Phone Number [facility] [address] [place] [address], [place] [phone] * LACTIC ACID W REFLEX (SEPSIS) (01/19/2025 1:07 PM CDT) Only the most recent of2 resultswithin the time period is included. LACTIC ACID VENOUS 1.4 0.4 - 2.0 MMOL/L 01/19/2025 1:36 PM CDT [facility] 01/19/2025 1:07 PM CDT us Emily Morales MD LABORATORY Final Result Performing Organization Address [facility]/ZIP Co de Phone Number [facility] [address] [place] [address], [place] [phone] * CT CERV SPINE WO CON (01/19/2025 12:07 PM CDT) Anatomical Region Laterality Modality Spine Computed Tomogra phy 01/19/2025 12:2 0 PM CDT Impressions 01/19/2025 12:39 PM CDT IMPRESSION: 1) There is abnormal skin thickening and subcutaneous edema over the right side of the face and neck suggesting acute superficial cellulitis. No evidence of subcutaneous abscess. 2. There are additional findings of abnormal edematous swollen appearance of the right parotid gland and right submandibular gland with multiple focal intraparotid masses with a single 10 mm mass in the right submandibular gland. These have increased in size from previous study and are of uncertain etiology. These may represent lymph nodes, however primary neoplasms could have a similar appearance. Correlation with short-term progress IV contrast-enhanced CT soft tissue neck would be recommended for follow-up evaluation. 3. 4 mm calcification in the right submandibular gland suggesting a sialolith. 4. 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 Ordered By: EMILY MORALES Interpreted By: Samir Simpson MD, 01/19/2025 12:20 PM Narrative 01/19/2025 12:39 PM CDT [facility] [id number] [facility]. [place] [id number] Examination: CT CERV SPINE WO CON Exam time: 01/19/2025 11:53 AM Clinical history: Pain and swelling right facial and right-sided neck Comparison: 05/23/2024, 03/21/2021 Technique: Axial images obtained through the neck and cervical spine from skull base to lung apices without contrast using low-dose CT technique. Sagittal and coronal reconstruction. Findings: Visualized portions of the skull base demonstrate no acute abnormality. Mastoid air cells are clear bilaterally. Visualized paranasal sinuses are clear. The nasopharynx and the oropharynx are grossly unremarkable. Epiglottis/supraglottic larynx, hypopharynx and larynx are unremarkable. No thyroid lesions are demonstrated. There is evidence of abnormal skin thickening and subcutaneous edema over the right side of the face and neck suggesting superficial cellulitis. There is thickening of the underlying platysma with no evidence of subcutaneous abscess. Inflammatory edematous appearance of the right parotid gland is noted with no evidence of parotid sialolithiasis. There are multiple indeterminate intraparotid mass lesions present which have increased in size from previous study with the largest seen along the inferior margin of the right parotid gland measuring 18 mm in diameter. There is also a relatively hyperdense 1 cm mass in the right submandibular gland which is slightly increased in size compared to 202. Additional abnormal nonspecific enlarged right side cervical lymph nodes are present. A 4 mm calcification is noted in the right submandibular gland suggesting sialolithiasis. The left submandibular gland is unremarkable. Small indeterminate left parotid nodules are noted with the largest in the superficial lobe measuring 10 mm in diameter. Incidental note is made of calcified pleural plaques in both lung apices suggesting previous asbestos exposure. Procedure Note Samir Simpson MD - 01/19/2025 [facility] [address] [address] [place] [address] Examination: CT CERV SPINE WO CON Exam time: 01/19/2025 11:53 AM Clinical history: Pain and swelling right facial and right-sided neck Comparison: 05/23/2024, 03/21/2021 Technique: Axial images obtained through the neck and cervical spine fromskull base to lung apices without contrast using low-dose CT technique.Sagittal and coronal reconstruction. Findings: Visualized portions of the skull base demonstrate no acuteabnormality. Mastoid air cells are clear bilaterally. Visualized paranasalsinuses are clear. The nasopharynx and the oropharynx are grosslyunremarkable. Epiglottis/supraglottic larynx, hypopharynx and larynx areunremarkable. No thyroid lesions are demonstrated. There is evidence of abnormal skin thickening and subcutaneous edema overthe right side of the face and neck suggesting superficial cellulitis.There is thickening of the underlying platysma with no evidence ofsubcutaneous abscess. Inflammatory edematous appearance of the rightparotid gland is noted with no evidence of parotid sialolithiasis. Thereare multiple indeterminate intraparotid mass lesions present which haveincreased in size from previous study with the largest seen along theinferior margin of the right parotid gland measuring 18 mm in diameter.There is also a relatively hyperdense 1 cm mass in the right submandibulargland which is slightly increased in size compared to 202. Additionalabnormal nonspecific enlarged right side cervical lymph nodes arepresent. A 4 mm calcification is noted in the right submandibular gland suggestingsialolithiasis. The left submandibular gland is unremarkable. Smallindeterminate left parotid nodules are noted with the largest in thesuperficial lobe measuring 10 mm in diameter. Incidental note is made of calcified pleural plaques in both lung apicessuggesting previous asbestos exposure. IMPRESSION: 1) There is abnormal skin thickening and subcutaneous edema over the rightside of the face and neck suggesting acute superficial cellulitis. Noevidence of subcutaneous abscess. 2. There are additional findings of abnormal edematous swollen appearanceof the right parotid gland and right submandibular gland with multiplefocal intraparotid masses with a single 10 mm mass in the rightsubmandibular gland. These have increased in size from previous study andare of uncertain etiology. These may represent lymph nodes, howeverprimary neoplasms could have a similar appearance. Correlation withshort-term progress IV contrast-enhanced CT soft tissue neck would berecommended for follow-up evaluation. 3. 4 mm calcification in the right submandibular gland suggesting asialolith. 4. 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 Ordered By: EMILY MORALES Interpreted By: Samir Simpson MD, 01/19/2025 12:20 PM Emily Morales MD CT Final Result * CT FACIAL BONES WO CON (01/19/2025 11:23 AM CDT) Anatomical Region Laterality Modality Facial Computed Tomogra phy 01/19/2025 11:3 6 AM CDT Impressions 01/19/2025 11:40 AM CDT IMPRESSION: Marked stranding changes are present in the subcutaneous and soft tissues about the right side of the face and upper neck. The neck is incompletely visualized. The findings are suspected to extend into the neck. If clinical symptoms warrant further imaging evaluation of the neck contrast-enhanced CT scan of the soft tissues of the neck recommended. There is lymphadenopathy that is present. There is diffuse enlargement of the right parotid gland. Findings may relate to underlying infectious or inflammatory changes. Neoplasm is not excluded. No loculated collection is present. Advanced degenerative changes are present about the right TMJ joint. Referred By: Interpreted By: Mika Jack MD, 01/19/2025 11:36 AM Narrative 01/19/2025 11:40 AM CDT [facility] [address] [place] [id number] Procedure(s): CT FACIAL BONES WO CON Date of service: 01/19/2025 11:04 AM Provided clinical information: 89 years, Male, Swelling at right face Procedure and materials: Helical images of the facial bones are obtained from superior to the frontal sinuses to inferior to the mandible. A dose lowering technique was used for this procedure, which may include, but is not limited to, dose reduction technique, automated exposure control, iterative reconstruction, ALARA (As Low As Reasonably Achievable), or Image Gently techniques. Comparison studies: None. Findings: Advanced degenerative changes are present about the right temporomandibular joint. Erosive changes are present involving the joint along with osteophytic change. Senescent changes are present within the brain. Visualized retrobulbar soft tissues are unremarkable. There is marked soft tissue stranding changes are present about the subcutaneous tissues of the right face. These are incompletely visualized. These are suspected to extend into the upper neck. There is thickening of the right platysma muscle. There is an enlarged lymph node present within the right neck measuring 1.2 cm in short axis dimension. This is enlarged. Marked stranding changes are present about the right parotid gland. Significant lymphadenopathy is present about the right parotid gland. Findings may relate to an underlying infectious process. Neoplasm is not excluded. There are multiple lymph nodes are present. One of these measures approximately 7 mm in short axis dimension this is enlarged. An additional measures approximately 1.1 cm. No definitive evidence of loculated collection is present. Prevertebral soft tissues are not thickened. Procedure Note Mika Jack MD - 01/19/2025 [facility] [address] [place] [id number] Procedure(s): CT FACIAL BONES WO CON Date of service: 01/19/2025 11:04 AM Provided clinical information: 89 years, Male, Swelling at right face Procedure and materials: Helical images of the facial bones are obtainedfrom superior to the frontal sinuses to inferior to the mandible. A dose lowering technique was used for this procedure, which may include,but is not limited to, dose reduction technique, automated exposurecontrol, iterative reconstruction, ALARA (As Low As ReasonablyAchievable), or Image Gently techniques. Comparison studies: None. Findings: Advanced degenerative changes are present about the righttemporomandibular joint. Erosive changes are present involving the jointalong with osteophytic change. Senescent changes are present within the brain. Visualized retrobulbar soft tissues are unremarkable. There is marked soft tissue stranding changes are present about thesubcutaneous tissues of the right face. These are incompletely visualized.These are suspected to extend into the upper neck. There is thickening ofthe right platysma muscle. There is an enlarged lymph node present withinthe right neck measuring 1.2 cm in short axis dimension. This is enlarged.Marked stranding changes are present about the right parotid gland.Significant lymphadenopathy is present about the right parotid gland.Findings may relate to an underlying infectious process. Neoplasm is notexcluded. There are multiple lymph nodes are present. One of thesemeasures approximately 7 mm in short axis dimension this is enlarged. Anadditional measures approximately 1.1 cm. No definitive evidence ofloculated collection is present. Prevertebral soft tissues are not thickened. IMPRESSION: Marked stranding changes are present in the subcutaneous and soft tissuesabout the right side of the face and upper neck. The neck is incompletelyvisualized. The findings are suspected to extend into the neck. Ifclinical symptoms warrant further imaging evaluation of the neckcontrast-enhanced CT scan of the soft tissues of the neck recommended.There is lymphadenopathy that is present. There is diffuse enlargement ofthe right parotid gland. Findings may relate to underlying infectious orinflammatory changes. Neoplasm is not excluded. No loculated collection ispresent. Advanced degenerative changes are present about the right TMJ joint. Referred By: Interpreted By: Mika Jack MD, 01/19/2025 11:36 AM us Emily Morales MD CT Final Result * ECG 12 lead (01/19/2025 11:02 AM CDT) 01/19/2025 11:0 2 AM CDT Narrative [facility] RAD - 01/19/2025 3:[address] 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: : 1935 Requested By: EMILY MORALES Order Number: [id number] Reading : Javi Joseph Measurements Intervals Cl[place]ier Rate: 69 P: 117 AL: 221 QRS: 96 QRSD: 88 T: 94 QT: 398 QTc: 429 Interpretive Statements ELECTRONIC ATRIAL PACEMAKER MINIMAL ST DEPRESSION [0.025+ mV ST DEPRESSION] ABNORMAL RHYTHM ECG Compared to ECG 05/23/2024 07:35:17 ST (T wave) deviation now present Ectopic atrial rhythm no longer present Ventricular premature complex(es) no longer present T-wave abnormality no longer present us Emily Morales MD ECG ORDERABLES Final Result [facility]) RAD * CULTURE, BACTERIA, BLOOD (01/19/2025 10:50 AM CDT) SPEC DESCRIPTION BLOOD 01/19/2025 11:23 AM CDT [facility] SPECIAL REQUESTS NO SPECIAL REQUEST 01/19/2025 11:23 AM CDT [facility] CULTURE RESULT NO GROWTH 5 DAYS 01/25/2025 12:36 PM CDT [facility] BLOOD SPECIMEN OBTAINED FOR BLOOD CULTURE / Unknown 01/19/2025 10:50 AM CDT 01/19/2025 1:19 PM CDT us Emily Morales MD MICROBIOLOGY - GENERAL ORDERABL ES Final Result Performing Organization Address City/[facility]/ZIP Co de Phone Number [facility] [address] [place] [address], [place] [phone] [facility] [address] [place] [address], [place] [phone] * LIPASE (01/19/2025 10:50 AM CDT) LIPASE 27 16 - 77 UNITS/L 01/19/2025 11:29 AM CDT [facility] 01/19/2025 10:5 0 AM CDT us Emily Morales MD LABORATORY Final Result [facility] [address] [place] [address], [place] [phone] * IR CHOLECYSTOSTOMY PLCMT (01/11/2025 11:20 AM CDT) Anatomical Region Laterality Modality Abdomen Interventional R adiology 01/11/2025 11:2 3 AM CDT Impressions 01/11/2025 11:52 AM CDT =====IMPRESSION:===== 1. Ultrasound findings suggestive of perforated cholecystitis, with a small lead focal defect in the gallbladder which may indicate with a separate perihepatic subcapsular collection along the medial aspect of hepatic segment 4, as discussed above. 2. Ultrasound fluoroscopy guided 8.5 Greek transhepatic percutaneous cholecystostomy drainage catheter placed, with return of frankly purulent fluid; small fluid sample sent for analysis. Additional slow syringe aspiration performed yielding nearly 140 mL of pus with the marked reduction in size of the second collection confirming catheter location. Therefore a second catheter was not placed. 3. Follow-up imaging recommended to confirm continued decrease in size and eventually resolution of the second suspected chronic collection. 4. Cholecystostomy tube to remain in place at least 6 weeks unless surgery is planned earlier. 5. Maintain regular flushing as directed. 6. No immediate procedure complication. Ordered By: JEFF RODRIGUES Interpreted By: Sonia Felix MD, 01/11/2025 11:23 AM Narrative 01/11/2025 11:52 AM CDT [facility] [address] [place], [place] [address] Procedure: IR image guided percutaneous cholecystostomy Exam Date/Time: 01/11/2025 11:19 AM Indication: 89 male presenting for percutaneous cholecystostomy catheter drainage. Presentation with acute cholecystitis with suspected the perforation and intrahepatic versus subcapsular abscess extension along the lateral margin of hepatic segment 4B. Request for percutaneous catheter drainage, with cholecystostomy, possible second hepatic drainage catheter placement Comparison: CT abdomen pelvis 01/09/2025. Technique: Informed verbal and written consent was obtained from the patient, patient's medical power of real estate associate attorney. The procedure was discussed including the rationale, alternatives, benefits and risks including infection, damage to liver and gallbladder, and, life-threatening bleeding and inability to place a drainage catheter. Patient was brought to the procedure room and placed supine on the fluoroscopy procedure table. Initial survey ultrasound imaging was performed demonstrating abnormal gallbladder wall thickening with sludge which can be seen with acute cholecystitis. There is a defect in the gallbladder wall is seen on ultrasound image 2 which may communicate an 3.6 x 6.4 cm collection along the inferior medial aspect of hepatic segment 4 containing dependent echoes. Uncertain if this represents a subcapsular perihepatic collection. Decision was made to proceed initially with the transhepatic cholecystostomy catheter placement. The skin was prepped and draped in usual sterile fashion. Timeout was performed. Intravenous sedation was administered by a qualified interventional radiology nurse with continuous cardiorespiratory monitoring including pulse, blood pressure, and oxygen saturation, under supervision of the interventional radiologist. Total intraprocedure [id number] time with the radiologist including sedation time was 18 minutes. Medications: Versed 2 mg IV Fentanyl 50 mcg IV Sterile ultrasound technique, and maximum sterile barrier technique including hand hygiene, and skin preparation was employed for the procedure. 1% lidocaine was administered for local anesthesia at the skin surface and deeper soft tissues the lungs and liver capsule. A small skin incision was made through which a 21-gauge access needle was then advanced under ultrasound guidance through the liver, and into the gallbladder lumen. Needle tip position was confirmed with ultrasound. A small volume of dilute contrast was partially outlining the gallbladder lumen. A microwire was advanced and the needle removed followed by enhancement of a transitional micropuncture sheath system over the wire. The wire, metal stiffener and inner dilator were removed leaving the outer [address]. There was return of trini pus through 6 Greek short sheath. A stiff Amplatz guidewire was placed followed by tract dilatation and placement of an 8.5 Greek multi-sidehole multipurpose locking pigtail drainage catheter. At 10 mL frankly purulent fluid sample was collected and sent for testing. The catheter was secured to the skin with 3. 0 Ethilon suture. The catheter was attached to gravity drainage bag; slow syringe aspiration of trini pus was performed utilizing a total of nearly 140 mL of fluid which was collected in the gravity drainage bag along with a small amount of pus. 01 was resistance to further aspiration, ultrasound demonstrated complete collapse of the gallbladder and marked reduction in size of the collection adjacent to the medial aspect of segment 4 confirming communication. Based on these findings, a second drainage catheter was not placed into this collection. The cholecystostomy tube was further secured with the stay fix. Overlying sterile dressing and Tegaderm was placed and the patient was transported back to floor in stable condition. Patient tolerated the procedure well. No immediate procedure,. State Inspector: Dr. Felix Estimated blood loss: None Radiation dose Air Kerma: 58 mGy; total 2 sets of fluoroscopic images saved. Procedure Note Sonia Felix MD - 01/11/2025 [facility] [address] [place], [place] [address] Procedure: IR image guided percutaneous cholecystostomy Exam Date/Time: 01/11/2025 11:19 AM Indication: 89 male presenting for percutaneous cholecystostomy catheterdrainage. Presentation with acute cholecystitis with suspected theperforation and intrahepatic versus subcapsular abscess extension alongthe lateral margin of hepatic segment 4B. Request for percutaneouscatheter drainage, with cholecystostomy, possible second hepatic drainagecatheter placement Comparison: CT abdomen pelvis 01/09/2025. Technique: Informed verbal and written consent was obtained from thepatient, patient's medical power of real estate associate attorney. The procedure was discussedincluding the rationale, alternatives, benefits and risks includinginfection, damage to liver and gallbladder, and, life-threatening bleedingand inability to place a drainage catheter. Patient was brought to the procedure room and placed supine on thefluoroscopy procedure table. Initial survey ultrasound imaging wasperformed demonstrating abnormal gallbladder wall thickening with sludgewhich can be seen with acute cholecystitis. There is a defect in thegallbladder wall is seen on ultrasound image 2 which may communicate an3.6 x 6.4 cm collection along the inferior medial aspect of hepaticsegment 4 containing dependent echoes. Uncertain if this represents asubcapsular perihepatic collection. Decision was made to proceed initiallywith the transhepatic cholecystostomy catheter placement. The skin wasprepped and draped in usual sterile fashion. Timeout was performed. Intravenous sedation was administered by a qualified interventionalradiology nurse with continuous cardiorespiratory monitoring includingpulse, blood pressure, and oxygen saturation, under supervision of theinterventional radiologist. Total intraprocedure [id number] time with the radiologist includingsedation time was 18 minutes. Medications: Versed 2 mg IV Fentanyl 50 mcg IV Sterile ultrasound technique, and maximum sterile barrier techniqueincluding hand hygiene, and skin preparation was employed for theprocedure. 1% lidocaine was administered for local anesthesia at the skinsurface and deeper soft tissues the lungs and liver capsule. A small skinincision was made through which a 21-gauge access needle was then advancedunder ultrasound guidance through the liver, and into the gallbladderlumen. Needle tip position was confirmed with ultrasound. A small volumeof dilute contrast was partially outlining the gallbladder lumen. Amicrowire was advanced and the needle removed followed by enhancement of atransitional micropuncture sheath system over the wire. The wire, metalstiffener and inner dilator were removed leaving the outer [address] There was return of trini pus through 6 Greek short sheath. Astiff Amplatz guidewire was placed followed by tract dilatation andplacement of an 8.5 Greek multi-sidehole multipurpose locking pigtaildrainage catheter. At 10 mL frankly purulent fluid sample was collectedand sent for testing. The catheter was secured to the skin with 3. 0Ethilon suture. The catheter was attached to gravity drainage bag; slowsyringe aspiration of trini pus was performed utilizing a total of [id number] mL of fluid which was collected in the gravity drainage bag along witha small amount of pus. 01 was resistance to further aspiration, ultrasounddemonstrated complete collapse of the gallbladder and marked reduction insize of the collection adjacent to the medial aspect of segment 4confirming communication. Based on these findings, a second drainagecatheter was not placed into this collection. The cholecystostomy tube was further secured with the stay fix. Overlyingsterile dressing and Tegaderm was placed and the patient was transportedback to floor in stable condition. Patient tolerated the procedure well. No immediate procedure,. State Inspector: Dr. Felix Estimated blood loss: None Radiation dose Air Kerma: 58 mGy; total 2 sets of fluoroscopic imagessaved. =====IMPRESSION:===== 1. Ultrasound findings suggestive of perforated cholecystitis, with asmall lead focal defect in the gallbladder which may indicate with aseparate perihepatic subcapsular collection along the medial aspect ofhepatic segment 4, as discussed above. 2. Ultrasound fluoroscopy guided 8.5 Greek transhepatic percutaneouscholecystostomy drainage catheter placed, with return of frankly purulentfluid; small fluid sample sent for analysis. Additional slow syringeaspiration performed yielding nearly 140 mL of pus with the markedreduction in size of the second collection confirming catheter location.Therefore a second catheter was not placed. 3. Follow-up imaging recommended to confirm continued decrease in size andeventually resolution of the second suspected chronic collection. 4. Cholecystostomy tube to remain in place at least 6 weeks unless surgeryis planned earlier. 5. Maintain regular flushing as directed. 6. No immediate procedure complication. Ordered By: JEFF RODRIGUES Interpreted By: Sonia Felix MD, 01/11/2025 11:23 AM Jeff Rodrigues MD INTERVENTIONAL RADIOLOGY Fin al Result * (ABNORMAL) CULTURE, WOUND, W/GRAM STAIN (01/11/2025 11:04 AM CDT) SPEC DESCRIPTION GALLBLADDER 01/11/2025 11:03 AM CDT [facility] SPECIAL REQUESTS NO SPECIAL REQUEST 01/11/2025 11:03 AM CDT [facility] GRAM STAIN RESULT MANY WHITE BLOOD CELLS SEEN 01/11/2025 1:39 PM CDT [facility] GRAM STAIN RESULT MANY RED BLOOD CELLS SEEN 01/11/2025 1:39 PM CDT [facility] GRAM STAIN RESULT FEW GRAM NEGATIVE RODS 01/11/2025 1:39 PM CDT [facility] GRAM STAIN RESULT CALLED GRAM STAIN RESULT TO AND REPEATED BACK BY RIKY LEBLANC RN AT [id number] ON [id number] DY 01/11/2025 1:39 PM CDT [facility] CULTURE RESULT HEAVY GROWTH OF ESCHERICHIA COLI (A) 01/14/2025 8:13 AM CDT [facility] CULTURE RESULT LIGHT GROWTH OF KLEBSIELLA PNEUMONIAE (A) 01/14/2025 8:13 AM CDT [facility] CULTURE RESULT SPARSE GROWTH OF ENTEROCOCCUS SPECIES IF PATIENT IS PENICILLIN ALLERGIC, CONTACT THE MICROBIOLOGY DEPARTMENT FOR READILY AVAILABLE VANCOMYCIN SUSCEPTIBILITY. (A) 01/14/2025 8:13 AM CDT [facility] CULTURE RESULT SPARSE GROWTH OF STREPTOCOCCUS GROUP D-NOT ENTEROCOCCUS ORGANISM IS CONSISTENT WITH NORMAL SKIN CORI. SUSCEPTIBILITIES NOT ROUTINELY PERFORMED. (A) 01/14/2025 8:13 AM CDT [facility] SPECIMEN FROM GALLBLADDER / Unknown 01/11/2025 11:04 AM CDT 01/11/2025 11:19 AM CDT Narrative Organism Antibiotic Method Susceptibility Escherichia coli AMPICILLIN RAJAN (VITEK) >=32: Resistant Escherichia coli AMPICILLIN/SULBACTAM RAJAN (VITEK) 16: Intermediate Comment:INTERMEDIATE Escherichia coli CEFTRIAXONE RAJAN (VITEK) <=1: Sensitive Escherichia coli CEFTAZIDIME RAJAN (VITEK) <=1: Sensitive Escherichia coli CEFAZOLIN RAJAN (VITEK) <=4: Sensitive Escherichia coli ESBL RAJAN (VITEK) NEG: Sensitive Escherichia coli GENTAMICIN RAJAN (VITEK) <=1: Sensitive Escherichia coli LEVOFLOXACIN RAJAN (VITEK) 1: Sensitive Escherichia coli PIPRACIL/TAZO RAJAN (VITEK) 8: Sensitive Escherichia coli TRIMETH-SULFAMETH. RAJAN (VITEK) <=20: Sensitive Klebsiella pneumoniae AMPICILLIN RAJAN (VITEK) >=32: Resistant Klebsiella pneumoniae AMPICILLIN/SULBACTAM RAJAN (VITEK) >=32: Resistant Klebsiella pneumoniae CEFTRIAXONE RAJAN (VITEK) <=1: Sensitive Klebsiella pneumoniae CEFTAZIDIME RAJAN (VITEK) <=1: Sensitive Klebsiella pneumoniae CEFAZOLIN RAJAN (VITEK) <=4: Sensitive Klebsiella pneumoniae ESBL RAJAN (VITEK) NEG: Sensitive Klebsiella pneumoniae GENTAMICIN RAJAN (VITEK) <=1: Sensitive Klebsiella pneumoniae LEVOFLOXACIN RAJAN (VITEK) <=0.12: Sensitive Klebsiella pneumoniae PIPRACIL/TAZO RAJAN (VITEK) 8: Sensitive Klebsiella pneumoniae TRIMETH-SULFAMETH. RAJAN (VITEK) <=20: Sensitive Enterococcus species AMPICILLIN RAJAN (VITEK) <=2: Sensitive Enterococcus species GENT. SYNERGY SCREEN RAJAN (VITEK) Resistant Enterococcus species PENICILLIN G RAJAN (VITEK) 1: Sensitive us Jeff Rodrigues MD MICROBIOLOGY - GENERAL ORDER KEARA Final Result [facility] [address] [place] [address], [place] [phone] * (ABNORMAL) URINALYSIS (01/10/2025 4:28 AM CDT) SPECIMEN TYPE URINE CLEAN CATCH 01/10/2025 4:28 AM CDT [facility] COLOR (U) LIGHT YELLOW 01/10/2025 5:01 AM CDT [facility] TRANSPARENCY TURBID 01/10/2025 5:01 AM CDT [facility] SPECIFIC GRAVITY (U) 1.009 1.001 - 1.030 01/10/2025 5:01 AM T [facility] U PH 5.5 5.0 - 9.0 01/10/2025 5:01 AM T [facility] LEUKOCYTES (U) 500(A) NEGATIVE 01/10/2025 5:01 AM CDT [facility] NITRITES NEGATIVE NEGATIVE 01/10/2025 5:01 AM T [facility] PROTEIN RANDOM (U) 30(H) <30 MG/DL 01/10/2025 5:01 AM T [facility] GLUCOSE (U) NORMAL NORMAL MG/DL 01/10/2025 5:01 AM T [facility] KETONES MG/DL (U) NEGATIVE NEGATIVE MG/DL 01/10/2025 5:01 AM T [facility] UROBILINOGEN NORMAL NORMAL MG/DL 01/10/2025 5:01 AM T [facility] BILIRUBIN (U) NEGATIVE NEGATIVE MG/DL 01/10/2025 5:01 AM T [facility] BLOOD (U) 2+(A) NEGATIVE 01/10/2025 5:01 AM T [facility] WBC/HPF 72(H) <6 /HPF 01/10/2025 5:01 AM CDT [facility] RBC/HPF 4 <6 /HPF 01/10/2025 5:01 AM CDT [facility] BUDDING YEAST FEW(A) NONE /HPF 01/10/2025 5:01 AM CDT [facility] SQUAMOUS EPITHELIALS RARE /HPF 01/10/2025 5:01 AM CDT [facility] URINE SPECIMEN OBTAINED BY CLEAN CATCH PROCEDURE / Unknown 01/10/2025 4:28 AM CDT us Macy Mulligan MANAGER PERIOPERATIVE URINE ORDERABLES Final Resu lt [facility] [address] [place] [address], [place] [phone] * US ABD LIMITED (01/09/2025 7:10 PM CDT) Anatomical Region Laterality Modality Abdomen Computed Tomogra phy 01/09/2025 7:44 PM CDT Impressions 01/09/2025 7:51 PM CDT IMPRESSION: 1. With limited visualization, ultrasound findings generally correlate with the CT appearance of gallstones and acute cholecystitis. Referred By: KERWIN LUEVANO Interpreted By: Isaac Bahena MD, 01/09/2025 7:44 PM Narrative 01/09/2025 7:51 PM CDT [address] [place] [id number] EXAM: US ABD LIMITED DATE: 01/09/2025 INDICATION: Abdominal pain, abnormal CT COMPARISON: 05/23/2024. Correlating CT from 1901 hours today. TECHNIQUE: Grayscale, color doppler, and spectral waveform analysis was performed. FINDINGS: Grayscale, color doppler, and spectral waveform analysis was performed. Liver: Partially visualized and grossly normal. Gallbladder: This is better seen with CT. Posterior echogenic foci likely correlate with the stones on the CT. Accurate measurements of the wall thickness are only present in some locations. The best seen wall segments are normal thickness. There is probably focal biliary sludge within the gallbladder as well. There may be partial visualization of the fluid collection adjacent to the gallbladder and left lobe of the liver, although with ultrasound and the degree of visualization, distinction between these 2 structures is poor. Positive sonographic Beal's sign. Bile ducts: Not visualized. Pancreas: Not visualized. Portal vein: Normal direction of flow with Doppler. Procedure Note Isaac Bahena MD - 01/09/[address] [place] [address] EXAM: US ABD LIMITED DATE: 01/09/2025 INDICATION: Abdominal pain, abnormal CT COMPARISON: 05/23/2024. Correlating CT from 1901 hours today. TECHNIQUE: Grayscale, color doppler, and spectral waveform analysis wasperformed. FINDINGS: Grayscale, color doppler, and spectral waveform analysis was performed. Liver: Partially visualized and grossly normal. Gallbladder: This is better seen with CT. Posterior echogenic foci likelycorrelate with the stones on the CT. Accurate measurements of the wallthickness are only present in some locations. The best seen wall segmentsare normal thickness. There is probably focal biliary sludge within thegallbladder as well. There may be partial visualization of the fluidcollection adjacent to the gallbladder and left lobe of the liver,although with ultrasound and the degree of visualization, distinctionbetween these 2 structures is poor. Positive sonographic Beal's sign. Bile ducts: Not visualized. Pancreas: Not visualized. Portal vein: Normal direction of flow with Doppler. IMPRESSION: 1. With limited visualization, ultrasound findings generally correlatewith the CT appearance of gallstones and acute cholecystitis. Referred By: KERWIN LUEVANO Interpreted By: Isaac Bahena MD, 01/09/2025 7:44 PM us Reece Torre MD ULTRASOUND Final Result * CT CHEST WO CON (01/09/2025 3:05 PM CDT) Anatomical Region Laterality Modality Chest Computed Tomogra phy 01/09/2025 3:49 PM CDT Impressions 01/09/2025 4:28 PM CDT IMPRESSION: 1. No acute pulmonary findings. 2. 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 This has decreased in size compared to prior studies. On the left side, there is a lentiform area of pleural fat deposition with some minimal internal soft tissue density, showing little change compared to December 2023. While this is probably a benign/reactive finding, mesothelioma or even liposarcoma would be less likely considerations. Recommend follow-up CT in 6 months. 3. In the upper abdomen, there are features concerning for perforated cholecystitis associated with cholelithiasis. Acuity of this finding is unknown, as the gallbladder wall was noted to be thickened on the previous exam in April, and was reported as probable acute calculus cholecystitis at that time. Correlation with physical exam and laboratory studies is suggested, along with general surgery consultation. Ordered By: REECE TORRE Interpreted By: Darci Garcia MD, 01/09/2025 3:49 PM Narrative 01/09/2025 4:28 PM CDT [address] [place] [address] EXAM: NONCONTRAST CT CHEST INDICATION: Evaluate peripheral/pleural-based abnormalities on radiograph. History of asbestos exposure. COMPARISON: Radiograph today, CT 05/23/2024, CT 12/13/2023 TECHNIQUE: Unenhanced multidetector CT is performed through the chest. Multiplanar images are created and reviewed. A dose lowering technique was used for this procedure, which may include, but is not limited to, dose reduction techniques, automated exposure control, the use of a iterative reconstruction, and ALARA (as low as reasonably achievable)/image gently techniques. FINDINGS: Heart: Heart size is normal. There is a trace effusion. Left chest wall pacemaker is present with right atrial and right ventricular leads. Great vessels: Normal in caliber. Mediastinum and esmer: There is a mildly enlarged precarinal lymph node on axial image 55 with short axis diameter of 1.3 cm, essentially unchanged dating back to December. Pleura: There are extensive bilateral pleural calcified plaques consistent with provided history of asbestos related pleural disease. On the right side, there is also a chronic exudative crescentic effusion which has decreased in size compared to previous exams. On the left side, there is a lentiform area of pleural fat deposition with some internal low soft tissue density. This is probably a reactive finding related to asbestos related pleural disease. Maximum axial dimensions are about 8.6 x 3.5 cm on axial image 55, showing only minimal increase in size as compared to measurements of 8.7 x 3.1 cm on the study 12/13/2023. Lungs: There is extensive stable fibroatelectasis/scarring in the right lung, with associated visceral pleural calcifications along the periphery, especially involving the right lower lobe. Milder scarring and fibroatelectasis are seen on the left, and scarring in the left lung base actually appears slightly improved compared to the study in April. No discrete pulmonary masses or nodules are seen. Upper abdomen: Within the upper abdomen, there is an incompletely imaged inflammatory process immediately adjacent to the gallbladder. This was also present to some degree on the study dated 05/23/2024. There is a roughly 6 x 3 cm fluid collection along the inferior left hepatic lobe which is adjacent to but probably not contiguous with the gallbladder lumen, raising possibility of perforated cholecystitis. Multiple stones are noted within the gallbladder. Other: No destructive osseous lesion is identified. Procedure Note Darci Garcia MD - 01/09/[address] [place] [address] EXAM: NONCONTRAST CT CHEST INDICATION: Evaluate peripheral/pleural-based abnormalities on radiograph.History of asbestos exposure. COMPARISON: Radiograph today, CT 05/23/2024, CT 12/13/2023 TECHNIQUE: Unenhanced multidetector CT is performed through the chest.Multiplanar images are created and reviewed. A dose lowering technique wasused for this procedure, which may include, but is not limited to, dosereduction techniques, automated exposure control, the use of a iterativereconstruction, and ALARA (as low as reasonably achievable)/image gentlytechniques. FINDINGS: Heart: Heart size is normal. There is a trace effusion. Left chest wallpacemaker is present with right atrial and right ventricular leads. Great vessels: Normal in caliber. Mediastinum and esmer: There is a mildly enlarged precarinal lymph node onaxial image 55 with short axis diameter of 1.3 cm, essentially unchangeddating back to December. Pleura: There are extensive bilateral pleural calcified plaques consistentwith provided history of asbestos related pleural disease. On the rightside, there is also a chronic exudative crescentic effusion which hasdecreased in size compared to previous exams. On the left side, there is alentiform area of pleural fat deposition with some internal low softtissue density. This is probably a reactive finding related to asbestosrelated pleural disease. Maximum axial dimensions are about 8.6 x 3.5 cmon axial image 55, showing only minimal increase in size as compared tomeasurements of 8.7 x 3.1 cm on the study 12/13/2023. Lungs: There is extensive stable fibroatelectasis/scarring in the rightlung, with associated visceral pleural calcifications along the periphery,especially involving the right lower lobe. Milder scarring andfibroatelectasis are seen on the left, and scarring in the left lung baseactually appears slightly improved compared to the study in April. Nodiscrete pulmonary masses or nodules are seen. Upper abdomen: Within the upper abdomen, there is an incompletely imagedinflammatory process immediately adjacent to the gallbladder. This wasalso present to some degree on the study dated 05/23/2024. There is aroughly 6 x 3 cm fluid collection along the inferior left hepatic lobewhich is adjacent to but probably not contiguous with the gallbladderlumen, raising possibility of perforated cholecystitis. Multiple stonesare noted within the gallbladder. Other: No destructive osseous lesion is identified. IMPRESSION: 1. No acute pulmonary findings. 2. Chronic features of asbestos-related pleural disease with extensivefibroatelectasis on the right side, with associated chronic exudativeright pleural effusion. This has decreased in size compared to priorstudies. On the left side, there is a lentiform area of pleural fatdeposition with some minimal internal soft tissue density, showing littlechange compared to December 2023. While this is probably a benign/reactivefinding, mesothelioma or even liposarcoma would be less likelyconsiderations. Recommend follow-up CT in 6 months. 3. In the upper abdomen, there are features concerning for perforatedcholecystitis associated with cholelithiasis. Acuity of this finding isunknown, as the gallbladder wall was noted to be thickened on the previousexam in April, and was reported as probable acute calculus cholecystitis atthat time. Correlation with physical exam and laboratory studies issuggested, along with general surgery consultation. Ordered By: REECE TORRE Interpreted By: Darci Garcia MD, 01/09/2025 3:49 PM us Reece Torre MD CT Final Result * (ABNORMAL) RESPIRATORY PCR PANEL 2 (01/09/2025 11:09 AM CDT) ADENOVIRUS PCR (RESP) NOT DETECTED NOT DETECTED 01/09/2025 2:40 PM CDT [facility] CORONAVIRUS 229E PCR (RESP) NOT DETECTED NOT DETECTED 01/09/2025 2:40 PM CDT [facility] CORONAVIRUS HKU1 PCR (RESP) NOT DETECTED NOT DETECTED 01/09/2025 2:40 PM CDT [facility] CORONAVIRUS NL63 PCR (RESP) NOT DETECTED NOT DETECTED 01/09/2025 2:40 PM CDT [facility] CORONAVIRUS OC43 PCR (RESP) NOT DETECTED NOT DETECTED 01/09/2025 2:40 PM CDT [facility] METAPNEUMOVIRUS PCR (RESP) NOT DETECTED NOT DETECTED 01/09/2025 2:40 PM CDT [facility] RHINOVIRUS/ENTEROV IRUS PCR (RESP) NOT DETECTED NOT DETECTED 01/09/2025 2:40 PM CDT [facility] INFLUENZA A/H1-2009 PCR (RESP) DETECTED(A) NOT DETECTED 01/09/2025 2:40 PM CDT [facility] Comment: CALLED RESP PCR RESULT TO AND REPEATED BACK BY GIL RAMIREZ AT [facility] AT 1438 ON [id number] DY INFLUENZA B PCR (RESP) NOT DETECTED NOT DETECTED 01/09/2025 2:40 PM CDT [facility] PARAINFLUENZA 1 PCR (RESP) NOT DETECTED NOT DETECTED 01/09/2025 2:40 PM CDT [facility] PARAINFLUENZA 2 PCR (RESP) NOT DETECTED NOT DETECTED 01/09/2025 2:40 PM CDT [facility] PARAINFLUENZA 3 PCR (RESP) NOT DETECTED NOT DETECTED 01/09/2025 2:40 PM CDT [facility] PARAINFLUENZA 4 PCR (RESP) NOT DETECTED NOT DETECTED 01/09/2025 2:40 PM CDT [facility] RSV PCR (RESP) NOT DETECTED NOT DETECTED 01/09/2025 2:40 PM CDT [facility] B PARAPERTUSIS PCR (RESP) NOT DETECTED NOT DETECTED 01/09/2025 2:40 PM CDT [facility] BORDETELLA PERTUSSIS PCR (RESP) NOT DETECTED NOT DETECTED 01/09/2025 2:40 PM CDT [facility] CHLAMYDOPHILA PNEUMONIAE PCR (RESP) NOT DETECTED NOT DETECTED 01/09/2025 2:40 PM CDT [facility] MYCOPLASMA PNEUMONIAE PCR (RESP) NOT DETECTED NOT DETECTED 01/09/2025 2:40 PM CDT [facility] CORONAVIRUS SARS COV 2 PCR (RESP) NOT DETECTED NOT DETECTED 01/09/2025 2:40 PM CDT [facility] NASOPHARYNGEAL SWAB / Unknown 01/09/2025 11:09 AM CDT us Reece Torre MD MICROBIOLOGY - GENERAL ORDERA BLES Final Result [facility] [address] [place] [address], * XR CHEST PA+LAT (01/09/2025 10:53 AM CDT) Anatomical Region Laterality Modality Chest Computed Tomogra phy 01/09/2025 10:5 7 AM CDT Impressions 01/09/2025 10:58 AM CDT IMPRESSION: Large soft tissue process on the left as well as right basilar atelectasis or consolidation. CT of the chest with contrast is recommended for further characterization Ordered By: REECE TORRE Interpreted By: Kiko Lal MD, 01/09/2025 10:57 AM Narrative 01/09/2025 10:58 AM CDT [address] [place] [address] 2 VIEWS OF THE CHEST Clinical history: Dyspnea Comparison: None 2 views of the chest demonstrate the cardiac silhouette to be mildly enlarged. A multilead pacemaker is noted from a left-sided approach. A prominent soft tissue process measuring roughly 13 x 6 cm is noted abutting the posterior pleural surface on the left. In addition, atelectasis or consolidation at the right base silhouettes the right hemidiaphragm. CT of the chest with contrast is recommended for further characterization Procedure Note Kiko Lal MD - 01/09/[address] [place] [address] 2 VIEWS OF THE CHEST Clinical history: Dyspnea Comparison: None 2 views of the chest demonstrate the cardiac silhouette to be mildlyenlarged. A multilead pacemaker is noted from a left-sided approach. Aprominent soft tissue process measuring roughly 13 x 6 cm is notedabutting the posterior pleural surface on the left. In addition,atelectasis or consolidation at the right base silhouettes the righthemidiaphragm. CT of the chest with contrast is recommended for furthercharacterization IMPRESSION: Large soft tissue process on the left as well as right basilar atelectasisor consolidation. CT of the chest with contrast is recommended for furthercharacterization Ordered By: REECE TORRE Interpreted By: Kiko Lal MD, 01/09/2025 10:57 AM Reece Torre MD GENERAL IMAGING Final Result * (ABNORMAL) HEPATIC FUNCTION PANEL (01/09/2025 7:43 AM CDT) Pathologist [facility] TOTAL PROTEIN S/P/B 7.0 6.4 - 8.2 G/DL 01/09/2025 5:29 PM CDT [facility] ALBUMIN S/P/B 2.2(L) 3.4 - 5.0 G/DL 01/09/2025 5:29 PM CDT [facility] BILIRUBIN TOTAL S/P/B 1.2 0.2 - 1.2 MG/DL 01/09/2025 5:29 PM CDT [facility] Comment: THIS ASSAY IS NOT RECOMMENDED FOR PATIENTS UNDERGOING TREATMENT WITH ELTROMBOPAG DUE TO THE POTENTIAL FOR FALSELY ELEVATED RESULTS. BILIRUBIN DIRECT S/P/B 0.4(H) 0.0 - 0.2 MG/DL 01/09/2025 5:30 PM CDT [facility] BILIRUBIN INDIRECT S/P/B NOT CALCULATED 0.0 - 0.9 MG/DL 01/09/2025 5:29 PM CDT [facility] ALKALINE PHOSPHATASE S/P/B 129 50 - 136 U/L 01/09/2025 5:29 PM CDT [facility] AST 49(H) 15 - 37 U/L 01/09/2025 5:29 PM CDT [facility] ALT 51 16 - 60 U/L 01/09/2025 5:29 PM CDT [facility] A/G RATIO 0.5(L) 1.0 - 2.5 RATIO 01/09/2025 5:29 PM CDT [facility] 01/09/2025 7:43 AM CDT us Reece Torre MD LABORATORY Final Result [facility] [address] [facility] [place] [address], [place] * (ABNORMAL) WBC WI DIFFERENTIAL (01/09/2025 6:00 AM CDT) WBC 14.50(H) 4.50 - 11.00 x10'3/uL 01/09/2025 9:42 AM CDT [facility] SEG NEUTROPHILS 84 % 5:01 PM CDT [facility] LYMPHOCYTES 5 % 01/09/2025 5:01 PM CDT [facility] MONOCYTES 9 % 01/09/2025 5:01 PM CDT [facility] MYELOCYTES 2 % 01/09/2025 5:01 PM CDT [facility] ABS. NEUTROPHILS 12.17(H) 1.80 - 7.70 x10'3/uL 01/09/2025 5:01 PM CDT [facility] ABS. LYMPHOCYTES 0.73(L) 1.00 - 4.80 x10'3/uL 01/09/2025 5:01 PM CDT [facility] ABS. MONOCYTES 1.31(H) 0.30 - 0.82 x10'3/uL 01/09/2025 5:01 PM CDT [facility] ABS. MYELOCYTES 0.29(H) 0.00 x10'3/uL 01/09/2025 5:01 PM CDT [facility] DIFFERENTIAL TYPE MANUAL DIFFERENTIAL 01/09/2025 5:01 PM CDT [facility] POIKLO 1+ 01/09/2025 5:01 PM CDT [facility] TIFFANIE 1+ 01/09/2025 5:01 PM CDT [facility] PLT EST. ADEQUATE 01/09/2025 5:01 PM CDT [facility] 01/09/2025 6:00 AM CDT us Arely Holm MD LABORATORY Final Result Performing Organization Address [facility] Co de Phone Number [facility] [address] [place] [address], [place] [phone] [place] [address], * (ABNORMAL) HEMOGLOBIN, GLYCATED (01/08/2025 6:05 AM CDT) HGB A1C 12.8(H) <5.7 % 01/08/2025 11:22 AM CDT [facility] Comment: ADA GUIDELINES 2010 5.7 TO 6.4% INCREASED RISK OF DIABETES > OR = 6.5% CONSISTENT WITH DIABETES ESTIMATED AVG GLUCOSE 321 mg/dL 01/08/2025 11:22 AM CDT [facility] 01/08/2025 6:05 AM CDT us Isaias Lomeli MD LABORATORY Final Resul t Performing Organization Address [facility] Co de Phone Number [facility] [address] [place] [address], [place] [phone] * (ABNORMAL) THYROID STIM HORMONE, TSH (01/08/2025 6:05 AM CDT) Only the most recent of2 resultswithin the time period is included. TSH 4.120(H) 0.358 - 3.74 uIU/ML 01/08/2025 11:00 AM CDT [facility] Comment: HIGH DOSES OF BIOTIN MAY INTERFERE WITH THIS TEST RESULT. CORRELATION TO CLINICAL HISTORY AND PRESENTATION RECOMMENDED. 01/08/2025 6:05 AM CDT us Isaias Lomeli MD LABORATORY Final Resul t [facility] [address] [place] [address], * XR CHEST PORTABLE (01/07/2025 1:40 PM CDT) Anatomical Region Laterality Modality Chest Radiographic Mary ging 01/07/2025 1:45 PM CDT Impressions 01/07/2025 1:46 PM CDT IMPRESSION: Mild right pleural fluid Ordered By: KERWIN LUEVANO Interpreted By: Kiko Lal MD, 01/07/2025 1:45 PM Narrative 01/07/2025 1:46 PM CDT [facility] [id number] [place] [address]. [place] [id number] SINGLE VIEW OF THE CHEST Clinical history: Cough Comparison: May 23, 2024 A single view of the chest demonstrates mild cardiomegaly which is stable. A multilead pacemaker stable from a left-sided approach. Pleural thickening and/or pleural fluid at the right base silhouettes the right hemidiaphragm. Scattered pleural plaquing is again noted Procedure Note Kiko Lal MD - 01/07/2025 [facility] [address] [facility] [place] [address] SINGLE VIEW OF THE CHEST Clinical history: Cough Comparison: May 23, 2024 A single view of the chest demonstrates mild cardiomegaly which is stable.A multilead pacemaker stable from a left-sided approach. Pleuralthickening and/or pleural fluid at the right base silhouettes the righthemidiaphragm. Scattered pleural plaquing is again noted IMPRESSION: Mild right pleural fluid Ordered By: KERWIN LUEVANO Interpreted By: Kiko Lal MD, 01/07/2025 1:45 PM Kerwin Luevano MD GENERAL IMAGING Final Resul t * CORONAVIRUS (COVID-19) MOLECULAR (01/07/2025 12:59 PM CDT) CORONAVIRUS SARS COV 2 RNA NEGATIVE NEGATIVE 01/07/2025 1:22 PM CDT [facility] Comment: NEGATIVE RESULTS DO NOT RULE OUT COVID 19 AND SHOULD NOT BE USED THE SOLE BASIS FOR TREATMENT OR PATIENT MANAGEMENT DECISIONS, INCLUDING INFECTION CONTROL DECISIONS. NEGATIVE RESULTS SHOULD BE CONSIDERED IN THE CONTEXT OF A PATIENT'S RECENT EXPOSURES, HISTORY AND THE PRESENCE OF CLINICAL SIGNS AND SYMPTOMS CONSISTENT WITH COVID 19. THE ID NOW COVID-19 2.0 TEST HAS BEEN AUTHORIZED BY THE FDA UNDER EAU FOR USE BY AUTHORIZED LABORATORIES. PERFORMED BY NUCLEIC ACID AMPLIFICATION FOR MOLECULAR QUALITATIVE DETECTION OF SARS-COV-2. SPECIMEN TYPE NASAL 01/07/2025 1:00 PM CDT [facility] NASOPHARYNGEAL SWAB / Unknown 01/07/2025 12:59 PM CDT Kerwin Luevano MD [facility] Final Result [facility] [address] [place] [address], [place] [phone] * INFLUENZA A & B (01/07/2025 12:59 PM CDT) SPECIMEN TYPE NASOPHARYNGEAL SWAB 01/07/2025 1:05 PM CDT [facility] INFLUENZA A NEGATIVE NEGATIVE 01/07/2025 1:26 PM CDT [facility] INFLUENZA B NEGATIVE NEGATIVE 01/07/2025 1:26 PM CDT [facility] NASAL NASOPHARYNGEAL SWAB / Unknown 01/07/2025 12:59 PM CDT us Kerwin Luevano MD MICROBIOLOGY - GENERAL [facility] Final Result Performing Organization Address [facility]/ZIP Co de Phone Number [facility] [address] [place] [address], [place] [phone] * STREP A RAPID (01/07/2025 12:59 PM CDT) RAPID STREP TEST NEGATIVE NEGATIVE 01/07/2025 1:15 PM CDT [facility] STRUCTURE OF ANTERIOR PORTION OF NECK / Unknown 01/07/2025 12:59 PM CDT us Kerwin Luevano MD MICROBIOLOGY - GENERAL CANELO [facility]Z Final Result Performing Organization Address [facility] Co de Phone Number [facility] [address] [place] [address], [place] [phone] * RESP SYNCYTIAL VIRUS (01/07/2025 12:59 PM CDT) SPECIMEN TYPE NASOPHARYNGEAL SWAB 01/07/2025 1:00 PM CDT [facility] RAPID RSV NEGATIVE NEGATIVE 01/07/2025 1:26 PM CDT [facility] NASOPHARYNGEAL SWAB / Unknown 01/07/2025 12:59 PM CDT us Kerwin Luevano MD MICROBIOLOGY - GENERAL CANELO LOPEZ Final Result Performing Organization Address [facility]/ZIP Co de Phone Number [facility] [address] [place] [address], [place] [phone] * (ABNORMAL) MICROALBUMIN CREATININE RATIO (MICROALBUMIN/ALBUMIN) (12/27/2024 8:50 AM OPTOMETRIC TECHNICIAN) CREATININE (U) 60.3 39 - 259 MG/DL 12/27/2024 9:39 AM [facility] MICROALBUMIN (U) 27.4(H) <2.0 mg/dL 12/27/2024 9:39 AM [facility] ALBUMIN/CREAT RATIO 454.3(H) <30.0 MG/G 12/27/2024 9:39 AM [facility] URINE SPECIMEN / Unknown 12/27/2024 8:50 AM OPTOMETRIC TECHNICIAN us Nevaeh PEREZP URINE ORDERABLES Final Resu lt Performing Organization Address [facility]/ZIP Co de Phone Number [facility] [address] [place] [address], [place] [phone] * VITAMIN B-12 (12/27/2024 8:47 AM OPTOMETRIC TECHNICIAN) VITAMIN B12 S/P/B 316 193 - 986 PG/ML 12/27/2024 10:24 AM [facility] 12/27/2024 8:47 AM OPTOMETRIC TECHNICIAN us Nevaeh PEREZP LABORATORY Final Resul t [facility] [address] [place] [address], [place] [phone] * (ABNORMAL) LIPID PANEL (12/27/2024 8:47 AM OPTOMETRIC TECHNICIAN) CHOLESTEROL 169 <200.0 MG/DL 12/27/2024 10:04 AM [facility] TRIGLYCERIDES 348(H) <150 MG/DL 12/27/2024 10:04 AM [facility] HDL 45 >40.0 MG/DL 12/27/2024 10:04 AM [facility] LDL (CALCULATED) 54 <100 MG/DL 12/27/2024 10:04 AM [facility] NON HDL CHOLESTEROL 124 <130 MG/DL 12/27/2024 10:04 AM [facility] CHOL/HDL RATIO 3.8 0.0 - 4.5 12/27/2024 10:04 AM [facility] VLDL CALCULATION 70(H) 5 - 55 MG/DL 12/27/2024 10:04 AM [facility] LIPID INTERPRETATION 12/27/2024 10:04 AM [facility] Comment: NIH CONCENSUS REPORT RECOMMENDATIONS: ADULT CHILD LOW RISK: CHOLESTEROL <200 <170 TRIGLYCERIDE <150 --- HDL >=60 --- LDL <100 <110 BORDERLINE: CHOLESTEROL 200-239 170-199 TRIGLYCERIDE 150-199 --- HDL 40-59 --- LDL 100-159 110-129 HIGH RISK: CHOLESTEROL >=240 >=200 TRIGLYCERIDE >=200 --- HDL <40 --- LDL >=160 >=130 12/27/2024 8:47 AM OPTOMETRIC TECHNICIAN Nevaeh Villalpando [facility] Final Resul t Performing Organization Address City/[facility]/ZIP Tx de Phone Number [facility] [address] [place] [address], * THYROXINE, FREE (FT4) (12/27/2024 8:47 AM OPTOMETRIC TECHNICIAN) FREE T4 0.87 0.76 - 1.46 NG/DL 12/27/2024 2:40 PM OPTOMETRIC TECHNICIAN [facility] 12/27/2024 8:47 AM OPTOMETRIC TECHNICIAN Nevaeh Villalpando [facility] Final Resul t [facility] [address] [place] [address], [place] [phone] * VITAMIN D, 25 [place] (12/27/2024 8:47 AM OPTOMETRIC TECHNICIAN) VITAMIN D 25 HYDROXY S/P/B 36 30 - 100 NG/ML 12/27/2024 10:07 AM OPTOMETRIC TECHNICIAN [facility] Comment: INTERPRETATION DEFICIENT <20 INSUFFICIENT 20-29 SUFFICIENT 30-100 12/27/2024 8:47 AM OPTOMETRIC TECHNICIAN Nevaeh Villalpando [facility] Final Resul t [facility] [address] [place] [address], [place] [phone] from Last 3 Months Insurance MEDICARE [facility] Advance Directives Documents on File Type Date Recorded Patient Damage Assessor Expl anation Advance Directives and Living Will 01/23/2025 7:54 AM Advance Directives and Living Will 06/05/2024 8:07 AM 06/04/2024 [place] FORM POA FOR HEALTH CARE * Full Code (Latest Code Status on File) Date Activated Date Inactivated Comments 02/18/2025 10:23 AM * Full Code Date Activated Date Inactivated Comments 01/23/2025 3:59 PM 01/30/2025 9:14 AM * Full Code Date Activated Date Inactivated Comments 01/19/2025 3:37 PM 01/22/2025 1:12 PM * POLST Date Activated Date Inactivated Comments 01/14/2025 3:48 PM 01/17/2025 5:17 PM Question Answer Comments Cardiopulmonary Resuscitatio n (CPR) If patient has no pulse and is not breathing: DO NOT Attempt Resuscitation CPR Code Limitations: No Chest Compression No Defibrillation/CardioversionNo Internal/External PacemakerNo Drug Protocol After Arrest OccursNo Mechanical Ventilation with IntubationNo Bag/Mask Medical Interventions when N OT in Cardiopulmonary Arrest (If patient is found with a pulse and/or is breathing): Comfort Focused - Do NOT Intubate Comfort Options: OxygenSuction Artificially administered nu trition - Offer food by mouth, if feasible and desired: Trial - Defined Trial Period Documentation of discussion: Agent Under Health Care Power of Slip Feeder * POLST Date Activated Date Inactivated Comments 01/10/2025 12:17 AM 01/14/2025 3:08 PM Question Answer Comments Cardiopulmonary Resuscitatio n (CPR) If patient has no pulse and is not breathing: DO NOT Attempt Resuscitation CPR Code Limitations: No Chest Compression No Defibrillation/CardioversionNo Internal/External PacemakerNo Drug Protocol After Arrest OccursNo Mechanical Ventilation with IntubationNo Bag/Mask Medical Interventions when N OT in Cardiopulmonary Arrest (If patient is found with a pulse and/or is breathing): Comfort Focused - Do NOT Intubate Comfort Options: OxygenSuction Artificially administered nu trition - Offer food by mouth, if feasible and desired: Trial - Defined Trial Period Documentation of discussion: Agent Under Health Care Power of Slip Feeder Healthcare Agents on File Name Relationship Healthcare Agent [facility] anabel Communication Blaire Charles Daughter Health Care Agent Care Teams Special Education Kindergarten Teacher Relationship Specialty Start Date End Date Arely Mujica PA-C [address] [place] [address] [address] [place] [address] PCP - General PHYSICIAN C CONSULTANT 05/28/24
[2025-02-18 17:11] VITALS: BMI 42.2
--- NOTE | 2025-02-18 17:23 | ADMGEN ---
This patient, Isaac Hernandez, was admitted to [facility] Surg Room 324-02. Patient/family oriented to hospital policies and general routines including ID bracelet, bed and alarms, visiting hours, pain management, procedures, bathroom and other care routines, personal items, smoking policy, room service/diet, and visiting hours. Information on how to activate the Rapid Response Team has been discussed. Patient/Family are encouraged to report perceived risks to care and to ask questions if they do not understand what they are told or what they should do.
[2025-02-18 17:49] LABS: Glucose Point of Care 218 mg/dl (65-105)
[2025-02-18] MEDS: SODIUM CHLORIDE 0.45% 1,000 ML 100 ML IV CONT (17:52)
[2025-02-18 20:35] LABS: Glucose Point of Care 264 mg/dl (65-105)
[2025-02-18] MEDS: INSULIN ASPART (*BKC) 100 UNITS/ML SUB-Q (21:00)
[2025-02-18 21:08] VITALS: BP 133/56; PULSE 69; RESP 20; TEMP 37; O2SAT 92
[2025-02-19 05:54] VITALS: BP 157/76; PULSE 70; RESP 18; TEMP 36.8; O2SAT 100
[2025-02-19 05:58] LABS: Basophils Absolute Auto 0.1 K/mm3 (0.0-0.1); Basophils Percent Auto 0.8 % (0.2-1.2); Eosinophils Absolute Auto 0.2 K/mm3 (0-0.3); Eosinophils Percent Auto 2.4 % (0-4.4); Hematocrit 35.9 % (42.0-52.0); Hemoglobin 11.7 g/dL (14.0-18.0); Immature Granulocyte Absolute 0.06 K/mm3 (0.00-0.031); Immature Granulocyte Percent A 0.8 % (0-0.5); Lymphocytes Absolute Auto 1.05 K/mm3 (0.9-3.2); Lymphocytes Percent Auto 13.8 % (18.3-44.2); Mean Corpuscular HGB Conc 32.6 g/dl (32-36); Mean Corpuscular Hemoglobin 30.3 pg (26-34); Mean Platelet Volume 8.8 fl (7.4-10.4); Monocytes Absolute Auto 1.2 K/mm3 (0.1-0.6); Monocytes Percent Auto 15.1 % (2.6-8.5); Neutrophils Absolute Auto 5.1 K/mm3 (1.3-6.7); Neutrophils Percent Auto 67.1 % (45.5-73.1); Platelet Count Result 244 k/mm3 (150-375); Red Blood Count 3.86 M/mm3 (4.6-6.20); Red Cell Distribution Width 13.5 % (11.5-14.5); White Blood Count 7.6 K/mm3 (4.5-10.0)
[2025-02-19 06:05] LABS: INR 1.1; Prothrombin Time 15.1 Seconds (11.1-14.7)
--- NOTE | 2025-02-19 06:05 | P.CONUR_ITS ---
Assessment and Plan Assessment and plan (1) BPH (benign prostatic hyperplasia): Code(s): N40.0 - Benign prostatic hyperplasia without lower urinary tract symptoms Status: Acute (2) Hematuria: Qualifiers: Hematuria type: gross Qualified Code(s): R31.0 - Gross hematuria Code(s): R31.9 - Hematuria, unspecified Status: Acute (3) History of neoplasm of bladder: Code(s): Z86.03 - Personal history of neoplasm of uncertain behavior Status: Acute Assessment and Plan: * Acute gross hematuria in a patient who is anticoagulated with a history of recurrent bladder tumors in the past. * Urine clear on slow CBI. He has been off anticoagulants for 4-5 days. Will plan cystoscopy with bilateral retrograde pyelography and possible TURBT today. Urology Consult Note HPI Date Seen: 02/19/25 Requesting Physician: Irma Lewis MD Primary Care Provider: Arely Mujica PA-C Consult Narrative Narrative: Isaac Hernandez is a 89 year old male well known to me with a long history of recurrent bladder tumors. Last cystoscopy in October 2024 failed to show evidence of obvious recurrent neoplasm. He presented to emergency department at [facility] in [place] on Tuesday with acute hematuria without clot retention. He was admitted there and started on a CBI. The nurse practitioner told me she tried stopping the CBI Tuesday morning in the hematuria recurred. He was subsequently transferred here on Tuesday night where, since admission, his urine has been clear on a slow CBI. The patient is chronically anticoagulated with Eliquis. He stopped taking it 4-5 days ago. He denies fevers/chills lightheadedness. Review of Systems 2 Review of Systems: All systems reviewed & are unremarkable except as noted in HPI and below PMFSH Past Medical History Medical History (Updated 02/19/25 @ 06:08 by Javy Coles MD) History of pulmonary embolism Pacemaker 2021 COPD (chronic obstructive pulmonary disease) BPH (benign prostatic hyperplasia) Anxiety and depression Diverticulosis Type 2 diabetes mellitus with chronic kidney disease History of blood clots 2021 RON on CPAP Chronic pain Sleep apnea Hypothyroidism Obesity Peripheral neuropathy Hx of bladder cancer History of anal fissures Chronic kidney disease (CKD) stage G3b/A2, moderately decreased glomerular filtration rate (GFR) between 30-44 mL/min/1.73 square meter and albuminuria creatinine ratio between 30-299 mg/g Essential hypertension Hyperlipidemia LDL goal <100 Surgical History Surgical History H/O heart surgery 08/25/2022 History of arthroscopy of left shoulder 2004 History of bilateral knee replacement 1998 Hx of carpal tunnel repair 1997 Hx of total shoulder replacement 1996 H/O cardiac catheterization 1994 Hx of right inguinal hernia repair 1993 H/O lithotripsy 1991 History of back surgery 1982 Hx of right knee surgery 1974 Family History Family History Sibling Family history of cataracts Family history of arthritis Family history of Alzheimer's disease Father Family history of arthritis Social History Social History Social History: somewhat confident with medical forms 06/22/34 Smoking status: Never smoker Alcohol intake: never Alcohol use details: socially/occasional Substance use: never Substance use type: does not use Do You Feel Safe in your Home?: Yes Lack of Transportation: No Lack of Food: Never True Current Housing: I Have Housing Concerned About Future Housing: No Difficulty Paying Gas/Electric Bills: No Difficulty Paying for Meds: No Currently Unemployed: No Education: High School Diploma/GED Difficulty w/ Childcare or Family Care: No Living arrangements: with family Occupation/Education: retired Spiritual care concerns: No Agree to blood products: Yes Meds Home Medications and Allergies Home Medications ?Medication ?Instructions ?Recorded ?Confirmed ?Type mecobalamin (vitamin B12) 1,000 500 mcg PO DAILY 12/24/19 02/18/25 History mcg chewable tablet multivitamin 1 tablet PO DAILY 12/24/19 02/18/25 History RELION/TRUE MICRO LANC 33G MIS See Rx Instructions .Route 10/03/20 02/18/25 Rx .COMPLEX #200 ea lancets 33 gauge #300 ea 07/22/21 02/18/25 Rx diphenhydramine 25 0.5 tablet PO QHS PRN pain (scale 12/13/22 02/18/25 History mg-acetaminophen 500 mg tablet score 1-3) (Tylenol PM Extra Strength) loratadine 10 mg tablet 10 mg PO DAILY 12/13/22 02/18/25 History cholecalciferol (vitamin D3) 25 5,000 unit PO DAILY 09/28/23 02/18/25 History mcg (1,000 unit) capsule pen needle, diabetic 31 gauge x #180 ea 12/08/23 02/18/25 Rx 5/16 (BD Ultra-Fine Short Pen Needle) True Metrix Glucose Test Strip See Rx Instructions .Route 09/17/24 02/18/25 Rx (blood sugar diagnostic) .COMPLEX #300 ea blood-glucose meter (True Metrix #1 ea 09/17/24 02/18/25 Rx Air Glucose Meter) amlodipine 5 mg tablet 5 mg PO DAILY #90 tabs 10/18/24 02/18/25 Rx escitalopram oxalate 20 mg tablet 20 mg PO DAILY #90 tabs 10/18/24 02/18/25 Rx furosemide 40 mg tablet 20 mg (1/2 x 40 mg) PO DAILY #90 10/18/24 02/18/25 Rx tabs levothyroxine 75 mcg tablet 75 mcg PO QAM #90 tabs 12/25/24 02/18/25 Rx (Synthroid) isosorbide mononitrate 30 mg 30 mg PO DAILY #90 tabs 01/02/25 02/18/25 Rx tablet,extended release 24 hr apixaban 5 mg tablet (Eliquis) 5 mg PO BID #180 tabs 02/04/25 02/18/25 Rx umeclidinium 62.5 mcg-vilanterol 1 inh inhalation DAILY #60 ea 02/04/25 02/18/25 Rx 25 mcg/actuation powdr for inhalation (Anoro Ellipta) albuterol sulfate 90 mcg/actuation 2 puff inhalation Q6H PRN wheezing 02/18/25 02/18/25 History aerosol inhaler insulin lispro protamine-lispro 26 unit subcut BIDWMEAL 02/18/25 02/18/25 History 100 unit/mL (75-25) subcutaneous pen (Humalog Mix 75-25 KwikPen) magnesium oxide 400 mg (241.3 mg 400 mg PO DAILY 02/18/25 02/18/25 History magnesium) tablet rosuvastatin 40 mg tablet 40 mg PO QHS 02/18/25 02/18/25 History Allergies Allergy/AdvReac Type Severity Reaction Status Date / Time iodine Allergy Unknown Diarrhea Verified 12/24/24 10:52 meperidine Allergy Unknown Difficulty Verified 12/24/24 10:52 Swallowing morphine Allergy Unknown Blurry Verified 12/24/24 10:52 Vision Penicillins Allergy Unknown Itching Verified 12/24/24 10:52 clarithromycin (From Biaxin) AdvReac Mild Unknown Verified 12/24/24 10:52 oxycodone AdvReac Mild UNABLE TO Verified 12/24/24 10:52 URINATE MEPERIDINE HCL Allergy Severe ITCHING Uncoded 12/24/24 10:52 Vital Signs Vital Signs - 24 hr 02/18/25 18:22 02/18/25 21:08 02/19/25 05:54 Temperature 98.6 F 98.2 F Pulse Rate 69 70 Respiratory Rate 20 18 Blood Pressure 133/56 L 157/76 H Pulse Oximetry 92 100 Oxygen Delivery Room Air Exam 2 Const: General: no acute distress Resp: Effort & Inspection: normal respiratory effort GI: Inspection: non-distended GI Palp: No abdominal tenderness and No Guarding due to palpation present (GI) Auscultation: normal bowel sounds Results Labs 02/19/25 05:33 02/19/25 05:33
[2025-02-19 06:06] LABS: Partial Thromboplastin Time 29.9 Seconds (22.3-36.8)
--- NOTE | 2025-02-19 06:09 | WPDHPUPDATE1 ---
History and Physical Update Update Date/Time: 02/19/25 06:09 History and Physical has been reviewed, including an updated exam of the patient. There are NO changes in the patient's condition. Risks, benefits, and alternatives have been discussed and questions answered. Patient agrees to proceed with procedure.
[2025-02-19 06:10] LABS: Anion Gap 8 mmol/L (4-12); Blood Urea Nitrogen 26 mg/dL (9-20); Calcium 8.4 mg/dL (8.4-10.2); Carbon Dioxide 28 mmol/L (22-30); Chloride 98 mmol/L (98-107); Estimated CRCL calculation 36 ml/min; Estimated Glomerular Filt Rate 37; Glucose 162 mg/dL (65-110); Potassium 4.4 mmol/L (3.4-5.0); Sodium 134 mmol/L (137-145)
--- NOTE | 2025-02-19 07:43 | P.PNAN_ITS ---
Anes - Initial Pre Proc Eval Procedure: Operation Date: 02/19/25 11:30 Proposed Procedures p Cystoscopy with Trans Urethral Resection Bladder Tumor, Bilateral Retrograde Pyelogram(Bilateral) - Javy Coles MD Date/Time: 02/19/25 07:43 Surgeon: Irma Lewis MD Pre Op Diagnosis: Hematuria Patient Data Age: 89 Gender: M Height: 1.78 m Weight: 133.5 kg Last Vital Signs Temp 36.8 C 02/19/25 05:54 Pulse 70 02/19/25 05:54 Resp 18 02/19/25 05:54 BP 157/76 H 02/19/25 05:54 Pulse Ox 100 02/19/25 05:54 O2 Del Method Room Air 02/18/25 18:22 Allergies Allergy/AdvReac Type Severity Reaction Status Date / Time iodine Allergy Unknown Diarrhea Verified 02/20/25 10:33 morphine Allergy Unknown Blurry Verified 02/20/25 10:33 Vision Penicillins Allergy Unknown Itching Verified 02/20/25 10:33 clarithromycin (From Biaxin) AdvReac Mild Unknown Verified 02/20/25 10:33 oxycodone AdvReac Mild UNABLE TO Verified 02/20/25 10:33 URINATE Home Medications ?Medication ?Instructions ?Recorded ?Confirmed ?Type mecobalamin (vitamin B12) 1,000 500 mcg PO DAILY 12/24/19 02/18/25 History mcg chewable tablet multivitamin 1 tablet PO DAILY 12/24/19 02/18/25 History RELION/TRUE MICRO LANC 33G MIS See Rx Instructions .Route 10/03/20 02/18/25 Rx .COMPLEX #200 ea lancets 33 gauge #300 ea 07/22/21 02/18/25 Rx diphenhydramine 25 0.5 tablet PO QHS PRN pain (scale 12/13/22 02/18/25 History mg-acetaminophen 500 mg tablet score 1-3) (Tylenol PM Extra Strength) loratadine 10 mg tablet 10 mg PO DAILY 12/13/22 02/18/25 History cholecalciferol (vitamin D3) 25 5,000 unit PO DAILY 09/28/23 02/18/25 History mcg (1,000 unit) capsule pen needle, diabetic 31 gauge x #180 ea 12/08/23 02/18/25 Rx 5/16 (BD Ultra-Fine Short Pen Needle) True Metrix Glucose Test Strip See Rx Instructions .Route 09/17/24 02/18/25 Rx (blood sugar diagnostic) .COMPLEX #300 ea blood-glucose meter (True Metrix #1 ea 09/17/24 02/18/25 Rx Air Glucose Meter) amlodipine 5 mg tablet 5 mg PO DAILY #90 tabs 10/18/24 02/18/25 Rx escitalopram oxalate 20 mg tablet 20 mg PO DAILY #90 tabs 10/18/24 02/18/25 Rx furosemide 40 mg tablet 20 mg (1/2 x 40 mg) PO DAILY #90 10/18/24 02/18/25 Rx tabs levothyroxine 75 mcg tablet 75 mcg PO QAM #90 tabs 12/25/24 02/18/25 Rx (Synthroid) isosorbide mononitrate 30 mg 30 mg PO DAILY #90 tabs 01/02/25 02/18/25 Rx tablet,extended release 24 hr apixaban 5 mg tablet (Eliquis) 5 mg PO BID #180 tabs 02/04/25 02/18/25 Rx umeclidinium 62.5 mcg-vilanterol 1 inh inhalation DAILY #60 ea 02/04/25 02/18/25 Rx 25 mcg/actuation powdr for inhalation (Anoro Ellipta) albuterol sulfate 90 mcg/actuation 2 puff inhalation Q6H PRN wheezing 02/18/25 02/18/25 History aerosol inhaler insulin lispro protamine-lispro 26 unit subcut BIDWMEAL 02/18/25 02/18/25 History 100 unit/mL (75-25) subcutaneous pen (Humalog Mix 75-25 KwikPen) magnesium oxide 400 mg (241.3 mg 400 mg PO DAILY 02/18/25 02/18/25 History magnesium) tablet rosuvastatin 40 mg tablet 40 mg PO QHS 02/18/25 02/18/25 History Laboratory Tests 02/18/25 02/18/25 02/19/25 17:47 19:35 05:33 WBC 7.6 K/mm3 (4.5-10.0) RBC 3.86 L M/mm3 (4.6-6.20) Hgb 11.7 L g/dL (14.0-18.0) Hct 35.9 L % (42.0-52.0) MCV 93.0 fl (80-100) MCH 30.3 pg (26-34) MCHC 32.6 g/dl (32-36) RDW 13.5 % (11.5-14.5) Plt Count 244 k/mm3 (150-375) MPV 8.8 fl (7.4-10.4) Immature Gran % (Auto) 0.8 H % (0-0.5) Neut % (Auto) 67.1 % (45.5-73.1) Lymph % (Auto) 13.8 L % (18.3-44.2) [place] % (Auto) 15.1 H % (2.6-8.5) Eos % (Auto) 2.4 % (0-4.4) Baso % (Auto) 0.8 % (0.2-1.2) Lymph # (Auto) 1.05 K/mm3 (0.9-3.2) [place] # (Auto) 1.2 H K/mm3 (0.1-0.6) Eos # (Auto) 0.2 K/mm3 (0-0.3) Baso # (Auto) 0.1 K/mm3 (0.0-0.1) Abs Immat Gran (auto) 0.06 H K/mm3 (0.00-0.031) Absolute Neuts (auto) 5.1 K/mm3 (1.3-6.7) Absolute Nucleated RBC 0.000 K/mm3 (0.0-0.012) Nucleated RBC % 0.0 % (0.0-0.2) PT 15.1 H Seconds (11.1-14.7) INR 1.1 APTT 29.9 Seconds (22.3-36.8) Sodium 134 L mmol/L (137-145) Potassium 4.4 mmol/L (3.4-5.0) Chloride 98 mmol/L (98-107) Carbon Dioxide 28 mmol/L (22-30) Anion Gap 8 mmol/L (4-12) BUN 26 H mg/dL (9-20) Creatinine 1.75 H mg/dL (0.7-1.3) Estim Creat Clear Calc 36 ml/min Estimated GFR 37 L (59 - ) Glucose 162 H mg/dL (65-110) POC Capillary Glucose 218 H mg/dl 264 H mg/dl (65-105) (65-105) Calcium 8.4 mg/dL (8.4-10.2) Patient hx anesthesia problems: none Family hx anesthesia problems: none Results Review: All pre-operative results and documents have been reviewed as part of the pre- operative evaluation. [facility] Past Medical History Medical History History of pulmonary embolism Pacemaker 2021 COPD (chronic obstructive pulmonary disease) BPH (benign prostatic hyperplasia) Anxiety and depression Diverticulosis Type 2 diabetes mellitus with chronic kidney disease History of blood clots 2021 RON on CPAP Chronic pain Sleep apnea Hypothyroidism Obesity Peripheral neuropathy Hx of bladder cancer History of anal fissures Chronic kidney disease (CKD) stage G3b/A2, moderately decreased glomerular filtration rate (GFR) between 30-44 mL/min/1.73 square meter and albuminuria creatinine ratio between 30-299 mg/g Essential hypertension Hyperlipidemia LDL goal <100 Surgical History Surgical History H/O heart surgery 08/25/2022 History of arthroscopy of left shoulder 2003 History of bilateral knee replacement 1998 Hx of carpal tunnel repair 1997 Hx of total shoulder replacement 1996 H/O cardiac catheterization 1994 Hx of right inguinal hernia repair 1993 H/O lithotripsy 1991 History of back surgery 1982 Hx of right knee surgery 1974 Family History Family History Sibling Family history of cataracts Family history of arthritis Family history of Alzheimer's disease Father Family history of arthritis Social History Social History Social History: somewhat confident with medical forms 06/22/34 Smoking status: Never smoker Alcohol intake: never Alcohol use details: socially/occasional Substance use: never Substance use type: does not use Do You Feel Safe in your Home?: Yes Lack of Transportation: No Lack of Food: Never True Current Housing: I Have Housing Concerned About Future Housing: No Difficulty Paying Gas/Electric Bills: No Difficulty Paying for Meds: No Currently Unemployed: No Education: High School Diploma/GED Difficulty w/ Childcare or Family Care: No Living arrangements: with family Occupation/Education: retired Spiritual care concerns: No Agree to blood products: Yes Anes - Eval Final PreProcedure Day of Procedure Patient weight: morbidly obese Heart: regular rate and rhythm Lungs: clear to auscultation Airway: Mallampati scale class II Neurological: alert and oriented Last oral intake: >/= 8 hours ASA classification: IV Emergent: no Anesthetic plan: proceed Anesthesia type and monitoring: general LMA and standard monitoring
[2025-02-19 08:04] LABS: Glucose Point of Care 170 mg/dl (65-105)
--- NOTE | 2025-02-19 09:00 | P.PNIM_ITS ---
Progress Note: A&P Assessment and Plan (1) Hematuria: Qualifiers: Hematuria type: gross Qualified Code(s): R31.0 - Gross hematuria Code(s): R31.9 - Hematuria, unspecified Status: Acute Assessment and Plan: Gross hematuria starting on admission [facility] consulted, plan for cystoscopy and possible TURP today urine culture obtained at [facility], will need follow-up on results NPO for procedure Currently holding Eliquis (2) Chronic kidney disease (CKD) stage G3b/A2, moderately decreased glomerular filtration rate (GFR) between 30-44 mL/min/1.73 square meter and albuminuria creatinine ratio between 30-299 mg/g: Code(s): N18.3 - Chronic kidney disease, stage 3 (moderate) Status: Acute Assessment and Plan: History of CKD stage 3. 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 (5) RON on CPAP: Code(s): G47.33 - Obstructive sleep apnea (adult) (pediatric); Z99.89 - Dependence on other enabling machines and devices Status: Acute Assessment and Plan: And COPD Continue home inhalers Continue home CPAP. Plan Diet: Heart healthy GI Prophylaxis: Not currently indicated DVT Prophylaxis: SCD Lines: Peripheral Code Status: Full code Subjective Date/time seen: 02/19/25 09:00 Interval history: 89 y/o M with PMH of diabetes, hypothyroidism, COPD, sick sinus syndrome, PE/DVT (2021), CKD stage 3, and HFpEF presents here with hematuria. Will plan cystoscopy with bilateral retrograde pyelography and possible TURBT today. Patient has no complaints, [place]oit bag with clear yellow urine. Review of Systems Review of Systems: All systems reviewed & are unremarkable except as noted in HPI and below Exam Narrative: General: well appearing, appears stated age. HEENT: normocephalic, atraumatic. Mucous membranes moist. EOMI, PERRLA, bilateral sclera anicteric, no conjunctival injection. Neck supple without JVD, lymphadenopathy, or bruit. Respiratory: clear to ascultation bilaterally. No rales/rhonic/wheezes. Cardiovascular: Regular rate and rhythm, normal S1-S2 upon ascultation. No murmurs, rubs, or clicks. PMI is nondisplaced, capillary refill less than 3 second. Abdomen: Soft, round, no pulsatile masses, nondistended and nontender. No rebound, no guarding. No CVA tenderness, no hepatosplenomegaly. Bowel sounds present to all four quadrants. No high pitch or tinkling sounds, resonant to percussion. Extremities: No cyanosis, clubbing, or edema present. Pulses are palpable 2/2. Active ROM to all four extremities. Neuro: Alert and orientated x 4. PERRLA. Cranial nerves 2-12 intact without focal deficit. Skin: Warm, dry, and intact, without rash, erythema, or lesion. Psych: pleasant, cooperative, normal speech, normal affect, no hallucinations, no dysarthia [place]oit clear yellow urine Objective Data Vital Signs Vital Signs: Vital Signs - 24 hr 02/18/25 18:22 02/18/25 21:08 02/19/25 05:54 Temperature 98.6 F 98.2 F Pulse Rate 69 70 Respiratory Rate 20 18 Blood Pressure 133/56 L 157/76 H Pulse Oximetry 92 100 Oxygen Delivery Room Air Intake/Output Intake/Output: Intake & Output 02/16/25 02/17/25 02/18/25 02/19/25 23:59 23:59 23:59 23:59 Intake Total 590 150 Output Total 500 1125 Balance 90 -975 Meds/Results Medications: Active Medications Generic Name Dose Route Start Last Admin Trade Name Freq PRN Reason Stop Dose Admin Acetaminophen 650 mg 02/18/25 16:02 Acetaminophen 325 Mg Tablet PO Q4H PRN Mild Pain (1-3) or Fever Bisacodyl 10 mg 02/18/25 16:02 Bisacodyl 10 Mg Suppository RECTAL ONCE PRN Constipation Dextrose 12.5 gm 02/18/25 16:04 Dextrose 50% 25 Gm/50 Ml Syringe IV PUSH PRN PRN Hypoglycemia Protocol Glucagon 1 mg 02/18/25 16:04 Glucagon For Inj 1 Mg Vial IM PRN PRN Hypoglycemia Protocol Glucose 15 gm 02/18/25 16:04 Glucose Oral Gel 15 Gm Of Glucse In 37.5 Gm Tube PO PRN PRN Hypoglycemia Protocol Dextrose 1,000 mls @ 100 mls/hr 02/18/25 16:04 Dextrose 5% 1,000 Ml IVPB PRN PRN Hypoglycemia Protocol Insulin Aspart 3 - 6 units 02/18/25 17:00 02/19/25 08:31 Insulin Aspart (*Bkc) 100 Units/Ml SUB-Q Not Given TIDWM NAHID Protocol Insulin Aspart 1 - 3 units 02/18/25 21:00 02/18/25 21:00 Insulin Aspart (*Bkc) 100 Units/Ml SUB-Q 1 units HS NAHID Administration Protocol Ondansetron HCl 4 mg 02/18/25 16:02 Ondansetron Inj 4 Mg/2 Ml Vial IV PUSH Q6H PRN Nausea And Vomiting Labs Labs: Laboratory Results - last 24 hr 02/18/25 02/18/25 02/19/25 17:47 19:35 05:33 WBC 7.6 RBC 3.86 L Hgb 11.7 L Hct 35.9 L MCV 93.0 MCH 30.3 MCHC 32.6 RDW 13.5 Plt Count 244 MPV 8.8 Immature Gran % (Auto) 0.8 H Neut % (Auto) 67.1 Lymph % (Auto) 13.8 L [place] % (Auto) 15.1 H Eos % (Auto) 2.4 Baso % (Auto) 0.8 Lymph # (Auto) 1.05 [place] # (Auto) 1.2 H Eos # (Auto) 0.2 Baso # (Auto) 0.1 Abs Immat Gran (auto) 0.06 H Absolute Neuts (auto) 5.1 Absolute Nucleated RBC 0.000 Nucleated RBC % 0.0 PT 15.1 H INR 1.1 APTT 29.9 Sodium 134 L Potassium 4.4 Chloride 98 Carbon Dioxide 28 Anion Gap 8 BUN 26 H Creatinine 1.75 H Estim Creat Clear Calc 36 Estimated GFR 37 L Glucose 162 H POC Capillary Glucose 218 H 264 H Calcium 8.4 02/19/25 08:00 WBC RBC Hgb Hct MCV MCH MCHC RDW Plt Count MPV Immature Gran % (Auto) Neut % (Auto) Lymph % (Auto) [place] % (Auto) Eos % (Auto) Baso % (Auto) Lymph # (Auto) [place] # (Auto) Eos # (Auto) Baso # (Auto) Abs Immat Gran (auto) Absolute Neuts (auto) Absolute Nucleated RBC Nucleated RBC % PT INR APTT Sodium Potassium Chloride Carbon Dioxide Anion Gap BUN Creatinine Estim Creat Clear Calc Estimated GFR Glucose POC Capillary Glucose 170 H Calcium Quality VTE Prophylaxis VTE prophylaxis: mechanical ordered Hospitalist MIPS Advance Care Plan I have confirmed that the patient's Advanced Care Plan is present, code status is documented, or surrogate decision maker is listed in patient medical record.: Yes Medication Reconciliation I have utilized all available resources to obtain, update and review the patients current medications (includes all prescriptions, OTC, herbals, cannabis, and nutritional supplements).: Yes
[2025-02-19 11:53] LABS: Glucose Point of Care 247 mg/dl (65-105)
[2025-02-19] MEDS: INSULIN ASPART (*BKC) 100 UNITS/ML SUB-Q (12:27)
[2025-02-19] MEDS: SODIUM CHLORIDE 0.9% IV 500 ML IV CONT (12:31)
[2025-02-19 14:00] VITALS: BP 137/55; PULSE 75; RESP 16; TEMP 36.8; O2SAT 98
[2025-02-19 17:06] LABS: Glucose Point of Care 152 mg/dl (65-105)
[2025-02-19 20:20] LABS: Glucose Point of Care 219 mg/dl (65-105)
[2025-02-19 20:22] VITALS: BP 136/57; PULSE 70; RESP 18; TEMP 36.7; O2SAT 94
[2025-02-19] MEDS: INSULIN GLARGINE (*BKC) 100 UNITS/ML 27 UNITS SUB-Q (20:53)
[2025-02-19] MEDS: ROSUVASTATIN 20 MG TABLET 40 MG PO (20:55)
[2025-02-20] VITALS (11 sets, daily range): BP systolic 110–146; BP diastolic 46–75; PULSE 61–75; RESP 14–20; TEMP 36.1–36.6; O2SAT 93–100
[2025-02-20] MEDS: LEVOTHYROXINE SODIUM 75 MCG TABLET PO (05:50)
--- NOTE | 2025-02-20 06:02 | ECG_ITS ---
Test Date: 2025-02-20 07:17:04 Measurements Intervals [place] Rate: 70 P: 104 HI: 304 QRS: 76 QRSD: 99 T: 64 QT: 423 QTc: 459 Interpretive Statements ELECTRONIC ATRIAL PACEMAKER LOW QRS VOLTAGE IN PRECORDIAL LEADS BASELINE WANDER- AVF BORDERLINE ECG No previous ECG available for comparison Electronically Signed On 02-20-2025 07:49:58 CDT by Devyn Cr D.O.
--- NOTE | 2025-02-20 06:23 | WPDUROPN2 ---
Progress Note: A&P Assessment and Plan (1) History of neoplasm of bladder: Code(s): Z86.03 - Personal history of neoplasm of uncertain behavior Status: Acute (2) Hematuria: Qualifiers: Hematuria type: gross Qualified Code(s): R31.0 - Gross hematuria Code(s): R31.9 - Hematuria, unspecified Status: Acute Assessment and Plan: Cystoscopy deferred yesterday after pt. ate breakfast. Planned for this morning. Possible discharge this afternoon. Subjective Subjective Date/Time Seen: 02/20/25 06:23 Interval history: Comfortable, urine clear Cystoscopy deferred yesterday after pt. ate breakfast. Planned for this morning. Review of Systems Review of Systems: All systems reviewed & are unremarkable except as noted in HPI and below Exam Const: General: no acute distress Resp: Effort & Inspection: normal respiratory effort GI: Inspection: non-distended GI Palp: No abdominal tenderness and No Guarding due to palpation present (GI) Auscultation: normal bowel sounds Urinary Catheter: Urinary Catheter: patent and draining and urine clear Objective Data Vital Signs Vital Signs: Vital Signs - 24 hr 02/19/25 14:00 02/19/25 20:22 02/19/25 21:33 Temperature 98.2 F 98.1 F Pulse Rate 75 70 Respiratory Rate 16 18 Blood Pressure 137/55 L 136/57 L Pulse Oximetry 98 94 Oxygen Delivery CPAP 02/20/25 05:42 Temperature 97.9 F Pulse Rate 70 Respiratory Rate 18 Blood Pressure 146/64 H Pulse Oximetry 96 Oxygen Delivery Intake/Output Intake/Output: Intake & Output 02/17/25 02/18/25 02/19/25 02/20/25 23:59 23:59 23:59 23:59 Intake Total 590 1176 Output Total 500 3325 1250 Balance 40 -2190 -0167 Meds/Results Medications: Active Medications Generic Name Dose Route Start Last Admin Trade Name Freq PRN Reason Stop Dose Admin Acetaminophen 650 mg 02/18/25 16:02 Acetaminophen 325 Mg Tablet PO Q4H PRN Mild Pain (1-3) or Fever Albuterol 2 puff 02/19/25 12:09 Albuterol Sulfate (*Sp) Aerosol 1 Puff INHALATION Q6HRT PRN wheezing Amlodipine Besylate 5 mg 02/20/25 09:00 Amlodipine Besylate 5 Mg Tablet PO DAILY NAHID Bisacodyl 10 mg 02/18/25 16:02 Bisacodyl 10 Mg Suppository RECTAL ONCE PRN Constipation Dextrose 12.5 gm 02/18/25 16:04 Dextrose 50% 25 Gm/50 Ml Syringe IV PUSH PRN PRN Hypoglycemia Protocol Dextrose 12.5 gm 02/19/25 12:13 Dextrose 50% 25 Gm/50 Ml Syringe IV PUSH PRN PRN Hypoglycemia Protocol Escitalopram Oxalate 20 mg 02/20/25 09:00 Escitalopram Oxalate 10 Mg Tablet PO DAILY NHAID Furosemide 20 mg 02/20/25 09:00 Furosemide 20 Mg Tablet PO DAILY NAHID Glucagon 1 mg 02/18/25 16:04 Glucagon For Inj 1 Mg Vial IM PRN PRN Hypoglycemia Protocol Glucagon 1 mg 02/19/25 12:13 Glucagon For Inj 1 Mg Vial IM PRN PRN Hypoglycemia Protocol Glucose 15 gm 02/18/25 16:04 Glucose Oral Gel 15 Gm Of Glucse In 37.5 Gm Tube PO PRN PRN Hypoglycemia Protocol Glucose 15 gm 02/19/25 12:13 Glucose Oral Gel 15 Gm Of Glucse In 37.5 Gm Tube PO PRN PRN Hypoglycemia Protocol Dextrose 1,000 mls @ 100 mls/hr 02/18/25 16:04 Dextrose 5% 1,000 Ml IVPB PRN PRN Hypoglycemia Protocol Dextrose 1,000 mls @ 100 mls/hr 02/19/25 12:13 Dextrose 5% 1,000 Ml IVPB PRN PRN Hypoglycemia Protocol Insulin Aspart 3 - 6 units 02/18/25 17:00 02/19/25 17:00 Insulin Aspart (*Bkc) 100 Units/Ml SUB-Q Not Given TIDWM [facility] Protocol Insulin Aspart 1 - 3 units 02/18/25 21:00 02/19/25 20:55 Insulin Aspart (*Bkc) 100 Units/Ml SUB-Q Not Given HS [facility] Protocol Insulin Glargine 27 units 02/19/25 21:00 02/19/25 20:53 Insulin Glargine (*Bkc) 100 Units/Ml 0.2 units/kg (27 units) 27 units SUB-Q Administration HS [facility] Isosorbide Mononitrate 30 mg 02/20/25 09:00 Isosorbide Mononitrate 30 Mg Tab.Er.24h PO DAILY [facility] Levothyroxine Sodium 75 mcg 02/20/25 06:30 02/20/25 05:50 Levothyroxine Sodium 75 Mcg Tablet PO 75 mcg DAILY@0630 NAHID Administration Ondansetron HCl 4 mg 02/18/25 16:02 Ondansetron Inj 4 Mg/2 Ml Vial IV PUSH Q6H PRN Nausea And Vomiting Rosuvastatin Calcium 40 mg 02/19/25 21:00 02/19/25 20:55 Rosuvastatin 20 Mg Tablet PO 40 mg QHS NAHID Administration Umeclidinium/Vilanterol 1 puff 02/20/25 08:00 Umeclidinium/Vilanterol 62.5-25 Mcg Ellipta INHALATION DAILYRT [facility] Labs Labs: Laboratory Results - last 24 hr 02/19/25 02/19/25 02/19/25 08:00 11:47 17:03 POC Capillary Glucose 170 H 247 H 152 H 02/19/25 19:48 POC Capillary Glucose 219 H
[2025-02-20 07:13] LABS: Glucose Point of Care 155 mg/dl (65-105)
[2025-02-20] MEDS: ESCITALOPRAM OXALATE 10 MG TABLET 20 MG PO (08:06)
[2025-02-20] MEDS: amLODIPine BESYLATE 5 MG TABLET PO (08:06)
[2025-02-20 08:55] LABS: Basophils Absolute Auto 0.1 K/mm3 (0.0-0.1); Eosinophils Absolute Auto 0.2 K/mm3 (0-0.3); Eosinophils Percent Auto 2.5 % (0-4.4); Hematocrit 39.5 % (42.0-52.0); Hemoglobin 12.7 g/dL (14.0-18.0); Immature Granulocyte Absolute 0.05 K/mm3 (0.00-0.031); Immature Granulocyte Percent A 0.7 % (0-0.5); Lymphocytes Absolute Auto 0.87 K/mm3 (0.9-3.2); Lymphocytes Percent Auto 12.3 % (18.3-44.2); Mean Corpuscular HGB Conc 32.2 g/dl (32-36); Mean Corpuscular Hemoglobin 29.9 pg (26-34); Mean Corpuscular Volume 92.9 fl (80-100); Mean Platelet Volume 8.8 fl (7.4-10.4); Monocytes Percent Auto 13.9 % (2.6-8.5); Neutrophils Absolute Auto 4.9 K/mm3 (1.3-6.7); Neutrophils Percent Auto 69.6 % (45.5-73.1); Platelet Count Result 269 k/mm3 (150-375); Red Blood Count 4.25 M/mm3 (4.6-6.20); Red Cell Distribution Width 13.5 % (11.5-14.5); White Blood Count 7.1 K/mm3 (4.5-10.0)
[2025-02-20 09:07] LABS: Alanine Aminotransferase 28 U/L (6-50); Albumin Level 3.6 g/dL (3.5-5.1); Alkaline Phosphatase 79 U/L (38-126); Anion Gap 6 mmol/L (4-12); Aspartate Amino Transferase 26 U/L (17-59); Blood Urea Nitrogen 25 mg/dL (9-20); Calcium 8.7 mg/dL (8.4-10.2); Carbon Dioxide 31 mmol/L (22-30); Chloride 99 mmol/L (98-107); Estimated CRCL calculation 38 ml/min; Estimated Glomerular Filt Rate 39; Glucose 153 mg/dL (65-110); Potassium 4.3 mmol/L (3.4-5.0); Sodium 136 mmol/L (137-145)
[2025-02-20] MEDS: LACTATED RINGERS 1,000 ML 30 ML IV CONT (10:20)
[2025-02-20 10:40] LABS: Glucose Point of Care 154 mg/dl (65-105)
--- NOTE | 2025-02-20 10:41 | PC.NURSE ---
Patient transferred to surgery via stretcher
--- NOTE | 2025-02-20 11:06 | P.PNAN_ITS ---
Anes - Eval Final PreProcedure Day of Procedure 02/20/25 11:06 Patient weight: morbidly obese Heart: regular rate and rhythm Lungs: decreased breath sounds Airway: Mallampati scale class II Neurological: alert and oriented Last oral intake: >/= 8 hours ASA classification: IV Emergent: no Anesthetic plan: proceed Anesthesia type and monitoring: general LMA and standard monitoring Results Review: All pre-operative results and documents have been reviewed as part of the pre- operative evaluation. Informed Consent: The patient's anesthetic plan and its attendant risks and benefits were discussed with the patient/family/POA. Questions were solicited and answers provided to the satisfaction of the patient/family/POA.
--- NOTE | 2025-02-20 11:20 | P.CDI_ITS ---
<Statement entered by Dinesh Gates PA-C - 02/20/25 14:31> This documentation has been reviewed and approved. CDI Query Clarification Request Patient with a BMI of 42.2 please provide a diagnosis to accompany this finding: * Overweight * Obesity * Morbid Obesity * Other/Unknown
--- NOTE | 2025-02-20 11:20 | WPDCDIQUERY2 ---
CDI Query Clarification Request Patient with a BMI of 42.2 please provide a diagnosis to accompany this finding: Overweight Obesity Morbid Obesity Other/Unknown
--- NOTE | 2025-02-20 11:38 | WPDHPUPDATE1 ---
History and Physical Update Update Date/Time: 02/20/25 11:38 History and Physical has been reviewed, including an updated exam of the patient. There are NO changes in the patient's condition. Risks, benefits, and alternatives have been discussed and questions answered. Patient agrees to proceed with procedure.
[2025-02-20] MEDS: ceFAZolin 3 GM/D5W 100 ML 100 ML IVPB (11:45)
[2025-02-20] MEDS: LIDOCAINE 2% GEL UROJET 10 ML PKG MUCOUS MEM ×2 (11:45→12:19)
--- NOTE | 2025-02-20 12:41 | W.PM.PROC2 ---
Procedure Note - Detailed Date of Procedure 02/20/25 Pre-op Diagnosis Hematuria Post-op Diagnosis Other (Recurrent bladder tumor) Procedure Performed TURBT small (2 cm) Surgeon Javy Coles MD Anesthesia General Description of Procedure Patient brought the operative suite was prepped draped in routine sterile fashion while in dorsal lithotomy position after the uneventful induction of a general LMA anesthetic. Cystoscopy was 1st undertaken with a 21 F rigid cystoscope. He has a very well resected prostatic urethra with 1 small nodular hyperplastic bleb in the left posterior lateral prostatic fossa. Bladder has a diverticulum in the right posterior lateral bladder wall and inside there is a small recurrent papillary neoplasm, as he has had on multiple prior occasions. The remainder of the bladder mucosa is normal without hyperemia or trini neoplasm. I attempted to identify his ureteral orifices without success. Then switched to a 24 F resectoscope and resected the neoplasm in his bladder diverticulum. The entire diverticulum was cauterized with a rollerball. I replaced a [address] catheter although efflux was clear. He tolerated the procedure well. Urine Output 500
[2025-02-20 13:24] LABS: Glucose Point of Care 153 mg/dl (65-105)
--- NOTE | 2025-02-20 13:46 | PC.NURSE ---
Patient returned to room 324 via stretcher
[2025-02-20 14:00] LABS: Glucose Point of Care 172 mg/dl (65-105)
--- NOTE | 2025-02-20 14:26 | PM.IMPN ---
Progress Note: A&P Assessment and Plan (1) Hematuria: Qualifiers: Hematuria type: gross Qualified Code(s): R31.0 - Gross hematuria Code(s): R31.9 - Hematuria, unspecified Status: Acute Assessment and Plan: Gross hematuria starting on admission [facility] Urology consulted, cystoscopy and TURBT today Urine culture obtained at [facility], will need follow-up on results Currently holding Eliquis (2) Chronic kidney disease (CKD) stage G3b/A2, moderately decreased glomerular filtration rate (GFR) between 30-44 mL/min/1.73 square meter and albuminuria creatinine ratio between 30-299 mg/g: Code(s): N18.3 - Chronic kidney disease, stage 3 (moderate) Status: Acute Assessment and Plan: History of CKD stage 3. Creatinine 1.75, BUN 26 Trend renal function (3) Type 2 diabetes mellitus with chronic kidney disease: Qualifiers: Chronic kidney disease stage: stage 3 (moderate) Chronic kidney disease stage 3 subtype: stage 3b (GFR 30-44) Diabetes mellitus buttermaker helper insulin use: with fdc use Qualified Code(s): E11.22 - Type 2 diabetes mellitus with diabetic chronic kidney disease; N18.32 - Chronic kidney disease, stage 3b; Z79.4 - terminal makeup operator (current) use of insulin Code(s): E11.22 - Type 2 diabetes mellitus with diabetic chronic kidney disease Status: Acute Assessment and Plan: hypoglycemia protocol POC blood glucose ACHS correct regimen ordered - moderate dose TIDWM and HS A1C 12% on 12/24/2024 Follows with Melinda COLE for his Endocrine/Diabetes Care (4) Essential hypertension: Code(s): I10 - Essential (primary) hypertension Status: Acute Assessment and Plan: Chronic, currently 133/56 Continue home medications: Amlodipine 5 mg daily, Lasix 50 mg daily, Imdur ER 30 mg daily Monitor. (5) RON on CPAP: Code(s): G47.33 - Obstructive sleep apnea (adult) (pediatric); Z99.89 - Dependence on other enabling machines and devices Status: Acute Assessment and Plan: Continue home CPAP. (6) Obesity, morbid, BMI 40.0-49.9: Code(s): E66.01 - Morbid (severe) obesity due to excess calories Status: Acute Assessment and Plan: BMI 42.2 Plan Diet: Heart healthy GI Prophylaxis: Not currently indicated DVT Prophylaxis: SCD Lines: Peripheral Code Status: Full code Time Spent With Patient Time: - Subjective Date/time seen: 02/20/25 14:26 Interval history: 89 y/o M with PMH of diabetes, hypothyroidism, COPD, sick sinus syndrome, PE/DVT (2021), CKD stage 3, and HFpEF presents here with hematuria. 02/20/2025 Patient sitting comfortably in bed at time of examination. Cystoscopy with bilateral retrograde pyelography with TURBT today. Pt otherwise sitting comfortably with no complaints at this time. Likely discharged Review of Systems Review of Systems: All systems reviewed & are unremarkable except as noted in HPI and below Exam Narrative: General: well appearing, appears stated age. HEENT: normocephalic, atraumatic. Mucous membranes moist. EOMI, PERRLA, bilateral sclera anicteric, no conjunctival injection. Neck supple without JVD, lymphadenopathy, or bruit. Respiratory: clear to ascultation bilaterally. No rales/rhonic/wheezes. Cardiovascular: Regular rate and rhythm, normal S1-S2 upon ascultation. No murmurs, rubs, or clicks. PMI is nondisplaced, capillary refill less than 3 second. Abdomen: Soft, round, no pulsatile masses, nondistended and nontender. No rebound, no guarding. No CVA tenderness, no hepatosplenomegaly. Bowel sounds present to all four quadrants. No high pitch or tinkling sounds, resonant to percussion. Extremities: No cyanosis, clubbing, or edema present. Pulses are palpable 2/2. Active ROM to all four extremities. Neuro: Alert and orientated x 4. PERRLA. Cranial nerves 2-12 intact without focal deficit. Skin: Warm, dry, and intact, without rash, erythema, or lesion. Psych: pleasant, cooperative, normal speech, normal affect, no hallucinations, no dysarthia Benoit clear yellow urine Const: General: comfortable and no acute distress Other: , male, elderly, nontoxic appearance HENMT: Face/Nose/Sinus: Normal nares present Mouth: Yes moist mucous membranes Eyes: General: appearance normal, both eyes and all related structures Sclera: sclerae normal Pupils: Equal, round and reactive pupils present EOM: EOMs intact bilaterally Resp: Effort & Inspection: normal respiratory effort Auscultation: clear to auscultation bilaterally Cardio: Rate: regular rate Rhythm: regular rhythm Other: S1-S2 present without murmur, rub, ectopy GI: Other: Abdomen rounded, nontender, mildly firm. Normoactive bowel sounds in all quadrants. : Other: No suprapubic tenderness. Urinary Catheter: Urinary Catheter: patent and draining and urine clear Skin: General skin exam: normal color and no rashes or lesions noted Wounds: no wounds Neuro: Cranial nerves: Yes Equal, round and reactive pupils present Speech: normal speech Motor exam (neuro): 5/5 motor strength present throughout Sensory Exam: normal sensation Other: Mild somnolence, A&O x3 Extrem: General: normal to inspection Psych: Mental Status: mental status grossly normal Affect: normal affect Other: Fair insight and judgment, pleasant. Objective Data Vital Signs Vital Signs: Vital Signs - 24 hr 02/19/25 20:22 02/19/25 21:33 02/20/25 05:42 Temperature 98.1 F 97.9 F Pulse Rate 70 70 Respiratory Rate 18 18 Blood Pressure 136/57 L 146/64 H Pulse Oximetry 94 96 Oxygen Delivery CPAP Oxygen Flow Rate 02/20/25 12:42 02/20/25 12:55 02/20/25 13:10 Temperature 97.2 F L Pulse Rate 75 70 70 Respiratory Rate 14 16 17 Blood Pressure 145/75 H 139/67 127/74 Pulse Oximetry 100 96 96 Oxygen Delivery Simple Face Mask Room Air Room Air Oxygen Flow Rate 8 02/20/25 13:25 02/20/25 13:52 02/20/25 14:07 Temperature 97.0 F L 97.5 F L Pulse Rate 70 61 71 Respiratory Rate 15 16 17 Blood Pressure 110/56 L 130/71 143/66 H Pulse Oximetry 94 93 94 Oxygen Delivery Room Air Oxygen Flow Rate Intake/Output Intake/Output: Intake & Output 02/17/25 02/18/25 02/19/25 02/20/25 23:59 23:59 23:59 23:59 Intake Total 590 1176 300 Output Total 500 3325 7780 Balance 64 -7103 -7786 Meds/Results Medications: Active Medications Generic Name Dose Route Start Last Admin Trade Name Freq PRN Reason Stop Dose Admin Acetaminophen 650 mg 02/18/25 16:02 Acetaminophen 325 Mg Tablet PO Q4H PRN Mild Pain (1-3) or Fever Albuterol 2 puff 02/19/25 12:09 Albuterol Sulfate (*Sp) Aerosol 1 Puff INHALATION Q6HRT PRN wheezing Amlodipine Besylate 5 mg 02/20/25 09:00 02/20/25 08:06 Amlodipine Besylate 5 Mg Tablet PO 5 mg DAILY NAH[facility] Administration Bisacodyl 10 mg 02/18/25 16:02 Bisacodyl 10 Mg Suppository RECTAL ONCE PRN Constipation Dextrose 12.5 gm 02/18/25 16:04 Dextrose 50% 25 Gm/50 Ml Syringe IV PUSH PRN PRN Hypoglycemia Protocol Dextrose 12.5 gm 02/19/25 12:13 Dextrose 50% 25 Gm/50 Ml Syringe IV PUSH PRN PRN Hypoglycemia Protocol Escitalopram Oxalate 20 mg 02/20/25 09:00 02/20/25 08:06 Escitalopram Oxalate 10 Mg Tablet PO 20 mg DAILY NAHID Administration Furosemide 20 mg 02/20/25 09:00 02/20/25 08:08 Furosemide 20 Mg Tablet PO Not Given DAILY [facility] Glucagon 1 mg 02/18/25 16:04 Glucagon For Inj 1 Mg Vial IM PRN PRN Hypoglycemia Protocol Glucagon 1 mg 02/19/25 12:13 Glucagon For Inj 1 Mg Vial IM PRN PRN Hypoglycemia Protocol Glucose 15 gm 02/18/25 16:04 Glucose Oral Gel 15 Gm Of Glucse In 37.5 Gm Tube PO PRN PRN Hypoglycemia Protocol Glucose 15 gm 02/19/25 12:13 Glucose Oral Gel 15 Gm Of Glucse In 37.5 Gm Tube PO PRN PRN Hypoglycemia Protocol Dextrose 1,000 mls @ 100 mls/hr 02/18/25 16:04 Dextrose 5% 1,000 Ml IVPB PRN PRN Hypoglycemia Protocol Dextrose 1,000 mls @ 100 mls/hr 02/19/25 12:13 Dextrose 5% 1,000 Ml IVPB PRN PRN Hypoglycemia Protocol Lactated Ringer's 1,000 mls @ 30 mls/hr 02/20/25 11:45 02/20/25 13:40 Lr - Lactated Ringers Iv IV CONT Infused .Q24H NAHID Infusion Insulin Aspart 3 - 6 units 02/18/25 17:00 02/20/25 13:39 Insulin Aspart (*Bkc) 100 Units/Ml SUB-Q Not Given TIDWM [facility] Protocol Insulin Aspart 1 - 3 units 02/18/25 21:00 02/19/25 20:55 Insulin Aspart (*Bkc) 100 Units/Ml SUB-Q Not Given HS [facility] Protocol Insulin Glargine 27 units 02/19/25 21:00 02/19/25 20:53 Insulin Glargine (*Bkc) 100 Units/Ml 0.2 units/kg (27 units) 27 units SUB-Q Administration HS [facility] Isosorbide Mononitrate 30 mg 02/20/25 09:00 02/20/25 08:08 Isosorbide Mononitrate 30 Mg Tab.Er.24h PO Not Given DAILY [facility] Levothyroxine Sodium 75 mcg 02/20/25 06:30 02/20/25 05:50 Levothyroxine Sodium 75 Mcg Tablet PO 75 mcg DAILY@0630 [facility] Administration Ondansetron HCl 4 mg 02/18/25 16:02 Ondansetron Inj 4 Mg/2 Ml Vial IV PUSH Q6H PRN Nausea And Vomiting Rosuvastatin Calcium 40 mg 02/19/25 21:00 02/19/25 20:55 Rosuvastatin 20 Mg Tablet PO 40 mg QHS [facility] Administration Umeclidinium/Vilanterol 1 puff 02/20/25 08:00 02/20/25 11:00 Umeclidinium/Vilanterol 62.5-25 Mcg [facility]: [facility] Impressions Intraoperative X-Ray 02/20/25 13:09 IMPRESSION: 1. Fluoroscopy utilized for reported cystoscopy. See procedure note for further detail. Labs Labs: Laboratory Results - last 24 hr 02/19/25 02/19/25 02/20/25 17:03 19:48 07:11 WBC RBC Hgb Hct MCV MCH MCHC RDW Plt Count MPV Immature Gran % (Auto) Neut % (Auto) Lymph % (Auto) Orange % (Auto) Eos % (Auto) Baso % (Auto) Lymph # (Auto) Orange # (Auto) Eos # (Auto) Baso # (Auto) Abs Immat Gran (auto) Absolute Neuts (auto) Absolute Nucleated RBC Nucleated RBC % Sodium Potassium Chloride Carbon Dioxide Anion Gap BUN Creatinine Estim Creat Clear Calc Estimated GFR Glucose POC Capillary Glucose 152 H 219 H 155 H Calcium Total Bilirubin AST ALT Alkaline Phosphatase Total Protein Albumin 02/20/25 02/20/25 02/20/25 08:28 10:39 13:20 WBC 7.1 RBC 4.25 L Hgb 12.7 L Hct 39.5 L MCV 92.9 MCH 29.9 MCHC 32.2 RDW 13.5 Plt Count 269 MPV 8.8 Immature Gran % (Auto) 0.7 H Neut % (Auto) 69.6 Lymph % (Auto) 12.3 L Orange % (Auto) 13.9 H Eos % (Auto) 2.5 Baso % (Auto) 1.0 Lymph # (Auto) 0.87 L Orange # (Auto) 1.0 H Eos # (Auto) 0.2 Baso # (Auto) 0.1 Abs Immat Gran (auto) 0.05 H Absolute Neuts (auto) 4.9 Absolute Nucleated RBC 0.000 Nucleated RBC % 0.0 Sodium 136 L Potassium 4.3 Chloride 99 Carbon Dioxide 31 H Anion Gap 6 BUN 25 H Creatinine 1.65 H Estim Creat Clear Calc 38 Estimated GFR 39 L Glucose 153 H POC Capillary Glucose 154 H 153 H Calcium 8.7 Total Bilirubin 1.0 AST 26 ALT 28 Alkaline Phosphatase 79 Total Protein 7.0 Albumin 3.6 02/20/25 13:52 WBC RBC Hgb Hct MCV MCH MCHC RDW Plt Count MPV Immature Gran % (Auto) Neut % (Auto) Lymph % (Auto) Orange % (Auto) Eos % (Auto) Baso % (Auto) Lymph # (Auto) Orange # (Auto) Eos # (Auto) Baso # (Auto) Abs Immat Gran (auto) Absolute Neuts (auto) Absolute Nucleated RBC Nucleated RBC % Sodium Potassium Chloride Carbon Dioxide Anion Gap BUN Creatinine Estim Creat Clear Calc Estimated GFR Glucose POC Capillary Glucose 172 H Calcium Total Bilirubin AST ALT Alkaline Phosphatase Total Protein Albumin Quality VTE Prophylaxis VTE prophylaxis: mechanical ordered
[2025-02-20 15:37] LABS: Add Urine Microscopic? YES; Appearance Urine Cloudy (Clear); Bacteria Urine None Seen /hpf; Bilirubin Urine Negative (Negative); Blood Urine 3+ (Negative); Color Urine Yellow (Yellow); Glucose Urine UA Negative (Negative); Ketones Urine Negative (Negative); Leukocyte Esterase Ur 2+ LEU/UL (Negative); Nitrate Urine Negative (Negative); Non Pathogenic Casts 0-2; Protein Urine 3+ mg/dL (Negative); RBC Urine >100 /hpf (0-2); Specific Grav Ur 1.014 (1.001-1.035); Squamous Epithelial Cell Urine None Seen /hpf (Few); Urobilinogen Urine 0.2 mg/dL (<2.0); WBC Urine >100 /hpf (0-3); pH Urine 6.5 (5.0-9.0)
[2025-02-20 16:41] LABS: Glucose Point of Care 216 mg/dl (65-105)
[2025-02-20] MEDS: INSULIN ASPART (*BKC) 100 UNITS/ML SUB-Q ×2 (16:58→21:08)
[2025-02-20 20:57] LABS: Glucose Point of Care 230 mg/dl (65-105)
[2025-02-20] MEDS: ROSUVASTATIN 20 MG TABLET 40 MG PO (21:08)
[2025-02-20] MEDS: INSULIN GLARGINE (*BKC) 100 UNITS/ML 27 UNITS SUB-Q (21:09)
[2025-02-21 00:24] VITALS: BP 136/49; PULSE 70; RESP 20; TEMP 36.1; O2SAT 97
[2025-02-21 05:42] VITALS: BP 149/62; PULSE 69; RESP 24; TEMP 36.6; O2SAT 98
[2025-02-21] MEDS: LEVOTHYROXINE SODIUM 75 MCG TABLET PO (05:58)
[2025-02-21 06:00] LABS: Basophils Absolute Auto 0.1 K/mm3 (0.0-0.1); Basophils Percent Auto 0.6 % (0.2-1.2); Eosinophils Absolute Auto 0.2 K/mm3 (0-0.3); Hematocrit 37.7 % (42.0-52.0); Hemoglobin 11.8 g/dL (14.0-18.0); Immature Granulocyte Absolute 0.06 K/mm3 (0.00-0.031); Immature Granulocyte Percent A 0.8 % (0-0.5); Lymphocytes Absolute Auto 0.97 K/mm3 (0.9-3.2); Lymphocytes Percent Auto 12.3 % (18.3-44.2); Mean Corpuscular HGB Conc 31.3 g/dl (32-36); Mean Corpuscular Hemoglobin 29.9 pg (26-34); Mean Corpuscular Volume 95.4 fl (80-100); Mean Platelet Volume 8.6 fl (7.4-10.4); Monocytes Absolute Auto 1.1 K/mm3 (0.1-0.6); Monocytes Percent Auto 14.2 % (2.6-8.5); Neutrophils Absolute Auto 5.5 K/mm3 (1.3-6.7); Neutrophils Percent Auto 70.1 % (45.5-73.1); Platelet Count Result 229 k/mm3 (150-375); Red Blood Count 3.95 M/mm3 (4.6-6.20); Red Cell Distribution Width 13.6 % (11.5-14.5); White Blood Count 7.9 K/mm3 (4.5-10.0)
[2025-02-21 06:24] LABS: Alanine Aminotransferase 21 U/L (6-50); Albumin Level 3.3 g/dL (3.5-5.1); Alkaline Phosphatase 74 U/L (38-126); Anion Gap 7 mmol/L (4-12); Aspartate Amino Transferase 25 U/L (17-59); Bilirubin,Total 0.7 mg/dL (0.2-1.3); Blood Urea Nitrogen 24 mg/dL (9-20); Calcium 8.5 mg/dL (8.4-10.2); Carbon Dioxide 30 mmol/L (22-30); Chloride 99 mmol/L (98-107); Estimated CRCL calculation 34 ml/min; Estimated Glomerular Filt Rate 35; Glucose 138 mg/dL (65-110); Potassium 4.8 mmol/L (3.4-5.0); Sodium 136 mmol/L (137-145)
--- NOTE | 2025-02-21 07:15 | P.PNUR_ITS ---
Progress Note: A&P Assessment and Plan (1) Hematuria: Qualifiers: Hematuria type: gross Qualified Code(s): R31.0 - Gross hematuria Code(s): R31.9 - Hematuria, unspecified Status: Acute (2) History of neoplasm of bladder: Code(s): Z86.03 - Personal history of neoplasm of uncertain behavior Status: Acute Assessment and Plan: * If urine remains clear off [facility] following TURBT yesterday * Catheter out for voiding trial today. I expect he should do fine * Discharge this afternoon if voiding well. * I will contact him with pathology report next week. * Follow-up with me in 3 months. Subjective Subjective Date/Time Seen: 02/21/25 07:15 Interval history: Comfortable, slept well. Urine clear off [facility] Review of Systems Review of Systems: All systems reviewed & are unremarkable except as noted in HPI and below Exam Const: General: no acute distress Resp: Effort & Inspection: normal respiratory effort GI: Inspection: non-distended GI Palp: No abdominal tenderness and No Guarding due to palpation present (GI) Auscultation: normal bowel sounds Urinary Catheter: Urinary Catheter: patent and draining and urine clear Objective Data Vital Signs Vital Signs: Vital Signs - 24 hr 02/20/25 12:42 02/20/25 12:55 02/20/25 13:10 Temperature 97.2 F L Pulse Rate 75 70 70 Respiratory Rate 14 16 17 Blood Pressure 145/75 H 139/67 127/74 Pulse Oximetry 100 96 96 Oxygen Delivery Simple Face Mask Room Air Room Air Oxygen Flow Rate 8 02/20/25 13:25 02/20/25 13:52 02/20/25 14:07 Temperature 97.0 F L 97.5 F L Pulse Rate 70 61 71 Respiratory Rate 15 16 17 Blood Pressure 110/56 L 130/71 143/66 H Pulse Oximetry 94 93 94 Oxygen Delivery Room Air Oxygen Flow Rate 02/20/25 14:37 02/20/25 15:37 02/20/25 20:20 Temperature 97.2 F L 97.9 F Pulse Rate 70 66 Respiratory Rate 15 16 Blood Pressure 123/46 L 119/56 L Pulse Oximetry 97 95 Oxygen Delivery CPAP Oxygen Flow Rate 02/20/25 21:02 02/20/25 21:08 02/21/25 00:24 Temperature 96.9 F L 96.9 F L Pulse Rate 70 70 Respiratory Rate 20 20 Blood Pressure 136/49 L 136/49 L Pulse Oximetry 97 97 97 Oxygen Delivery CPAP Oxygen Flow Rate 02/21/25 05:42 Temperature 97.9 F Pulse Rate 69 Respiratory Rate 24 H Blood Pressure 149/62 H Pulse Oximetry 98 Oxygen Delivery Oxygen Flow Rate Intake/Output Intake/Output: Intake & Output 02/18/25 02/19/25 02/20/25 02/21/25 23:59 23:59 23:59 23:59 Intake Total 590 1176 420 Output Total 500 0145 7270 775 Balance 90 -2149 -2030 -775 Meds/Results Medications: Active Medications Generic Name Dose Route Start Last Admin Trade Name Freq PRN Reason Stop Dose Admin Acetaminophen 650 mg 02/18/25 16:02 Acetaminophen 325 Mg Tablet PO Q4H PRN Mild Pain (1-3) or Fever Albuterol 2 puff 02/19/25 12:09 Albuterol Sulfate (*Sp) Aerosol 1 Puff INHALATION Q6HRT PRN wheezing Amlodipine Besylate 5 mg 02/20/25 09:00 02/20/25 08:06 Amlodipine Besylate 5 Mg Tablet PO 5 mg DAILY NAHID Administration Bisacodyl 10 mg 02/18/25 16:02 Bisacodyl 10 Mg Suppository RECTAL ONCE PRN Constipation Dextrose 12.5 gm 02/18/25 16:04 Dextrose 50% 25 Gm/50 Ml Syringe IV PUSH PRN PRN Hypoglycemia Protocol Dextrose 12.5 gm 02/19/25 12:13 Dextrose 50% 25 Gm/50 Ml Syringe IV PUSH PRN PRN Hypoglycemia Protocol Escitalopram Oxalate 20 mg 02/20/25 09:00 02/20/25 08:06 Escitalopram Oxalate 10 Mg Tablet PO 20 mg DAILY NAHID Administration Furosemide 20 mg 02/20/25 09:00 02/20/25 08:08 Furosemide 20 Mg Tablet PO Not Given DAILY NAHID Glucagon 1 mg 02/18/25 16:04 Glucagon For Inj 1 Mg Vial IM PRN PRN Hypoglycemia Protocol Glucagon 1 mg 02/19/25 12:13 Glucagon For Inj 1 Mg Vial IM PRN PRN Hypoglycemia Protocol Glucose 15 gm 02/18/25 16:04 Glucose Oral Gel 15 Gm Of Glucse In 37.5 Gm Tube PO PRN PRN Hypoglycemia Protocol Glucose 15 gm 02/19/25 12:13 Glucose Oral Gel 15 Gm Of Glucse In 37.5 Gm Tube PO PRN PRN Hypoglycemia Protocol Dextrose 1,000 mls @ 100 mls/hr 02/18/25 16:04 Dextrose 5% 1,000 Ml IVPB PRN PRN Hypoglycemia Protocol Dextrose 1,000 mls @ 100 mls/hr 02/19/25 12:13 Dextrose 5% 1,000 Ml IVPB PRN PRN Hypoglycemia Protocol Lactated Ringer's 1,000 mls @ 30 mls/hr 02/20/25 11:45 02/20/25 13:40 Lr - Lactated Ringers Iv IV CONT Infused .Q24H NAHID Infusion Insulin Aspart 3 - 6 units 02/18/25 17:00 02/20/25 16:58 Insulin Aspart (*Bkc) 100 Units/Ml SUB-Q 3 units TIDWM [facility] Administration Protocol Insulin Aspart 1 - 3 units 02/18/25 21:00 02/20/25 21:08 Insulin Aspart (*Bkc) 100 Units/Ml SUB-Q 1 units HS [facility] Administration Protocol Insulin Glargine 27 units 02/19/25 21:00 02/20/25 21:09 Insulin Glargine (*Bkc) 100 Units/Ml 0.2 units/kg (27 units) 27 units SUB-Q Administration [facility] Isosorbide Mononitrate 30 mg 02/20/25 09:00 02/20/25 08:08 Isosorbide Mononitrate 30 Mg Tab.Er.24h PO Not Given DAILY [facility] Levothyroxine Sodium 75 mcg 02/20/25 06:30 02/21/25 05:58 Levothyroxine Sodium 75 Mcg Tablet PO 75 mcg DAILY@0630 [facility] Administration Ondansetron HCl 4 mg 02/18/25 16:02 Ondansetron Inj 4 Mg/2 Ml Vial IV PUSH Q6H PRN Nausea And Vomiting Rosuvastatin Calcium 40 mg 02/19/25 21:00 02/20/25 21:08 Rosuvastatin 20 Mg Tablet PO 40 mg QHS [facility] Administration Umeclidinium/Vilanterol 1 puff 02/20/25 08:00 02/20/25 11:00 Umeclidinium/Vilanterol 62.5-25 Mcg Ellipta INHALATION Not Given DAILYRT [facility] Radiology Results: ITS Impressions Intraoperative X-Ray 02/20/25 13:09 IMPRESSION: 1. Fluoroscopy utilized for reported cystoscopy. See procedure note for further detail. Labs Labs: Laboratory Results - last 24 hr 02/20/25 02/20/25 02/20/25 08:28 10:39 13:20 WBC 7.1 RBC 4.25 L Hgb 12.7 L Hct 39.5 L MCV 92.9 MCH 29.9 MCHC 32.2 RDW 13.5 Plt Count 269 MPV 8.8 Immature Gran % (Auto) 0.7 H Neut % (Auto) 69.6 Lymph % (Auto) 12.3 L Addison % (Auto) 13.9 H Eos % (Auto) 2.5 Baso % (Auto) 1.0 Lymph # (Auto) 0.87 L [place]ison # (Auto) 1.0 H Eos # (Auto) 0.2 Baso # (Auto) 0.1 Abs Immat Gran (auto) 0.05 H Absolute Neuts (auto) 4.9 Absolute Nucleated RBC 0.000 Nucleated RBC % 0.0 Sodium 136 L Potassium 4.3 Chloride 99 Carbon Dioxide 31 H Anion Gap 6 BUN 25 H Creatinine 1.65 H Estim Creat Clear Calc 38 Estimated GFR 39 L Glucose 153 H POC Capillary Glucose 154 H 153 H Calcium 8.7 Total Bilirubin 1.0 AST 26 ALT 28 Alkaline Phosphatase 79 Total Protein 7.0 Albumin 3.6 Urine Color Urine Appearance Urine pH Ur Specific Dinosaur Urine Protein Urine Glucose (UA) Urine Ketones Ur Blood (Man) Urine Nitrate Urine Bilirubin Urine Urobilinogen Ur Leukocyte Esterase Urine RBC Urine WBC Ur Squamous Epith Cells Urine Bacteria Urine Casts 02/20/25 02/20/25 02/20/25 13:52 15:16 16:39 WBC RBC Hgb Hct MCV MCH MCHC RDW Plt Count MPV Immature Gran % (Auto) Neut % (Auto) Lymph % (Auto) Addison % (Auto) Eos % (Auto) Baso % (Auto) Lymph # (Auto) Addison # (Auto) Eos # (Auto) Baso # (Auto) Abs Immat Gran (auto) Absolute Neuts (auto) Absolute Nucleated RBC Nucleated RBC % Sodium Potassium Chloride Carbon Dioxide Anion Gap BUN Creatinine Estim Creat Clear Calc Estimated GFR Glucose POC Capillary Glucose 172 H 216 H Calcium Total Bilirubin AST ALT Alkaline Phosphatase Total Protein Albumin Urine Color Yellow Urine Appearance Cloudy H Urine pH 6.5 Ur Specific Dinosaur 1.014 Urine Protein 3+ H Urine Glucose (UA) Negative Urine Ketones Negative Ur Blood (Man) 3+ H Urine Nitrate Negative Urine Bilirubin Negative Urine Urobilinogen 0.2 Ur Leukocyte Esterase 2+ H Urine RBC >100 H Urine WBC >100 H Ur Squamous Epith Cells None seen Urine Bacteria None seen Urine Casts 0-2 02/20/25 02/21/25 19:59 05:54 WBC 7.9 RBC 3.95 L Hgb 11.8 L Hct 37.7 L MCV 95.4 MCH 29.9 MCHC 31.3 L RDW 13.6 Plt Count 229 MPV 8.6 Immature Gran % (Auto) 0.8 H Neut % (Auto) 70.1 Lymph % (Auto) 12.3 L Addison % (Auto) 14.2 H Eos % (Auto) 2.0 Baso % (Auto) 0.6 Lymph # (Auto) 0.97 Addison # (Auto) 1.1 H Eos # (Auto) 0.2 Baso # (Auto) 0.1 Abs Immat Gran (auto) 0.06 H Absolute Neuts (auto) 5.5 Absolute Nucleated RBC 0.000 Nucleated RBC % 0.0 Sodium 136 L Potassium 4.8 Chloride 99 Carbon Dioxide 30 Anion Gap 7 BUN 24 H Creatinine 1.83 H Estim Creat Clear Calc 34 Estimated GFR 35 L Glucose 138 H POC Capillary Glucose 230 H Calcium 8.5 Total Bilirubin 0.7 AST 25 ALT 21 Alkaline Phosphatase 74 Total Protein 6.0 L Albumin 3.3 L Urine Color Urine Appearance Urine pH Ur Specific Dinosaur Urine Protein Urine Glucose (UA) Urine Ketones Ur Blood (Man) Urine Nitrate Urine Bilirubin Urine Urobilinogen Ur Leukocyte Esterase Urine RBC Urine WBC Ur Squamous Epith Cells Urine Bacteria Urine Casts
[2025-02-21 07:49] LABS: Glucose Point of Care 134 mg/dl (65-105)
[2025-02-21] MEDS: UMECLIDINIUM/VILANTEROL 62.5-25 MCG ELLIPTA 1 PUFF INHALATION (08:01)
[2025-02-21] MEDS: ESCITALOPRAM OXALATE 10 MG TABLET 20 MG PO (08:28)
[2025-02-21] MEDS: ISOSORBIDE MONONITRATE 30 MG TAB.ER.24H PO (08:28)
[2025-02-21] MEDS: FUROSEMIDE 20 MG TABLET PO (08:28)
[2025-02-21] MEDS: amLODIPine BESYLATE 5 MG TABLET PO (08:28)
[2025-02-21 11:37] LABS: Glucose Point of Care 205 mg/dl (65-105)
[2025-02-21] MEDS: INSULIN ASPART (*BKC) 100 UNITS/ML SUB-Q (12:28)
[2025-02-21 14:00] VITALS: BP 117/50; PULSE 75; RESP 20; TEMP 37; O2SAT 95
--- NOTE | 2025-02-21 15:06 | P.DS_ITS ---
DS: Admitting Diagnosis Discharge Date 02/21/2025 Admitting Diagnosis Hematuria DS: Discharge Diagnosis Discharge Diagnosis (1) Hematuria: Qualifiers: Hematuria type: gross Qualified Code(s): R31.0 - Gross hematuria Code(s): R31.9 - Hematuria, unspecified Status: Acute (2) Chronic kidney disease (CKD) stage G3b/A2, moderately decreased glomerular filtration rate (GFR) between 30-44 mL/min/1.73 square meter and albuminuria c reatinine ratio between 30-299 mg/g: Code(s): N18.3 - Chronic kidney disease, stage 3 (moderate) Status: Acute (3) Type 2 diabetes mellitus with chronic kidney disease: Qualifiers: Chronic kidney disease stage: stage 3 (moderate) Chronic kidney disease stage 3 subtype: stage 3b (GFR 30-44) 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 insulin use: with nursing home use Qualified Code(s): E11.22 - Type 2 diabetes mellitus with diabetic chronic kidney disease; N18.32 - Chronic kidney disease, stage 3b; Z79.4 - intermediate frame tender (current) use of insulin Code(s): E11.22 - Type 2 diabetes mellitus with diabetic chronic kidney disease Status: Acute (4) Essential hypertension: Code(s): I10 - Essential (primary) hypertension Status: Acute (5) RON on CPAP: Code(s): G47.33 - Obstructive sleep apnea (adult) (pediatric); Z99.89 - Dependence on other enabling machines and devices Status: Acute (6) Obesity, morbid, BMI 40.0-49.9: Code(s): E66.01 - Morbid (severe) obesity due to excess calories Status: Acute DS: Summary Hospital Course Reason for hospitalization: Hematuria Hospital Course: 89 y/o M with PMH of diabetes, recurrent bladder tumors, hypothyroidism, COPD, sick sinus syndrome, PE/DVT (2021), CKD stage 3, and HFpEF presents here with hematuria. The patient presented to [facility] in 02/17/25 for hematuria. He reports he 1st noticed the blood in his urine on Tuesday or Tuesday, unsure which 1. Upon arrival to the OSH, the patient was bladder scanned which showed greater than [address] Holm was placed for continuous bladder irrigation. CT showed a possible mass in the bladder. CBI was continued overnight and the patient and his hemoglobin remained stable. Patient was briefly trialed off CBI this morning, however hematuria returned. Urology was contacted at [facility] who was agreeable to transfer for a cystoscopy. Follows with Sanket COLE for his urological care. The patient currently has no complaints. He denies fever, chills, body aches, suprapubic pain, or abdominal pain at present. Of note, the patient had recent perforated cholecystitis and was admitted to [facility] in [place] from [id number]. Treated with Zosyn and had a percutaneous cholecystostomy drainage catheter placed. Plan for general surgery follow-up on 02/[address] scan and to determine the next steps in his care. The patient reports no knowledge of bladder cancer, however reported at the OSH that there was a bladder spot that was being monitored. VS upon arrival: 98.6, HR 69, R 20, 133/56, and 92% on room air. Urology consulted regarding hematuria. Anticoagulants have been held and CBI was initiated with holm catheter. Urology planned for bilateral retrograde pyelography with TURBT. This was performed on 02/20 and showed the bladder which has a diverticulum in the right posterior lateral bladder wall and inside there is a small recurrent papillary neoplasm, as he has had on multiple prior occasions. The remainder of the bladder mucosa is normal without hyperemia or trini neoplasm. The neoplasm in the bladder was resected. The patient overall tolerated the procedure well. The holm catheter was removed and the patient passed a voiding trial with minimal difficulties. A UA was obtained which showed leukocyte esterases and WBCs. Culture still pending but upon discharge, will prescribed Macrobid for empiric treatment of UTI. Pt otherwise stable with stable blood work and vitals. Urology cleared pt for discharge from their standpoint with close followup with Dr. Coles' office in the outpatient setting. Pt amenable to discharge. Plan to DC home. Status at Discharge Functional status at discharge: independent ambulation Overall status at discharge: patient is back to baseline Time Spent with Patient Time attestation: Total time spent providing and/or coordinating discharge services: 45 Exam Narrative: General: well appearing, appears stated age. HEENT: normocephalic, atraumatic. Mucous membranes moist. EOMI, PERRLA, bilateral sclera anicteric, no conjunctival injection. Neck supple without JVD, lymphadenopathy, or bruit. Respiratory: clear to ascultation bilaterally. No rales/rhonic/wheezes. Cardiovascular: Regular rate and rhythm, normal S1-S2 upon ascultation. No murmurs, rubs, or clicks. PMI is nondisplaced, capillary refill less than 3 second. Abdomen: Soft, round, no pulsatile masses, nondistended and nontender. No rebound, no guarding. No CVA tenderness, no hepatosplenomegaly. Bowel sounds present to all four quadrants. No high pitch or tinkling sounds, resonant to percussion. Extremities: No cyanosis, clubbing, or edema present. Pulses are palpable 2/2. Active ROM to all four extremities. Neuro: Alert and orientated x 4. PERRLA. Cranial nerves 2-12 intact without focal deficit. Skin: Warm, dry, and intact, without rash, erythema, or lesion. Psych: pleasant, cooperative, normal speech, normal affect, no hallucinations, no dysarthia Const: General: comfortable and no acute distress Other: , male, elderly, nontoxic appearance HENMT: Face/Nose/Sinus: Normal nares present Mouth: Yes moist mucous membranes Eyes: General: appearance normal, both eyes and all related structures Sclera: sclerae normal Pupils: Equal, round and reactive pupils present EOM: EOMs intact bilaterally Resp: Effort & Inspection: normal respiratory effort Auscultation: clear to auscultation bilaterally Cardio: Rate: regular rate Rhythm: regular rhythm Other: S1-S2 present without murmur, rub, ectopy GI: Other: Abdomen rounded, nontender, mildly firm. Normoactive bowel sounds in all quadrants. : Other: No suprapubic tenderness. Skin: General skin exam: normal color and no rashes or lesions noted Wounds: no wounds Neuro: Cranial nerves: Yes Equal, round and reactive pupils present Speech: normal speech Motor exam (neuro): 5/5 motor strength present throughout Sensory Exam: normal sensation Other: Mild somnolence, A&O x3 Extrem: General: normal to inspection Psych: Mental Status: mental status grossly normal Affect: normal affect Other: Fair insight and judgment, pleasant. DS: Data Data Completed and Pending Completed studies during hospitalization: Pending at discharge 02/20/25 12:25 Surgical [PTH] Routine Pending studies at discharge: Urine Culture Labs on day of discharge: Labs from last 24 hours 02/21/25 02/21/25 02/21/25 11:23 07:44 05:54 WBC 7.9 RBC 3.95 L Hgb 11.8 L Hct 37.7 L MCV 95.4 MCH 29.9 MCHC 31.3 L RDW 13.6 Plt Count 229 MPV 8.6 Immature Gran % (Auto) 0.8 H Neut % (Auto) 70.1 Lymph % (Auto) 12.3 L Stewart % (Auto) 14.2 H Eos % (Auto) 2.0 Baso % (Auto) 0.6 Lymph # (Auto) 0.97 Stewart # (Auto) 1.1 H Eos # (Auto) 0.2 Baso # (Auto) 0.1 Abs Immat Gran (auto) 0.06 H Absolute Neuts (auto) 5.5 Absolute Nucleated RBC 0.000 Nucleated RBC % 0.0 Sodium 136 L Potassium 4.8 Chloride 99 Carbon Dioxide 30 Anion Gap 7 BUN 24 H Creatinine 1.83 H Estim Creat Clear Calc 34 Estimated GFR 35 L Glucose 138 H POC Capillary Glucose 205 H 134 H Calcium 8.5 Total Bilirubin 0.7 AST 25 ALT 21 Alkaline Phosphatase 74 Total Protein 6.0 L Albumin 3.3 L Urine Color Urine Appearance Urine pH Ur Specific [place] Urine Protein Urine Glucose (UA) Urine Ketones Ur Blood (Man) Urine Nitrate Urine Bilirubin Urine Urobilinogen Ur Leukocyte Esterase Urine RBC Urine WBC Ur Squamous Epith Cells Urine Bacteria Urine Casts 02/20/25 02/20/25 02/20/25 19:59 16:39 15:16 WBC RBC Hgb Hct MCV MCH MCHC RDW Plt Count MPV Immature Gran % (Auto) Neut % (Auto) Lymph % (Auto) Stewart % (Auto) Eos % (Auto) Baso % (Auto) Lymph # (Auto) Stewart # (Auto) Eos # (Auto) Baso # (Auto) Abs Immat Gran (auto) Absolute Neuts (auto) Absolute Nucleated RBC Nucleated RBC % Sodium Potassium Chloride Carbon Dioxide Anion Gap BUN Creatinine Estim Creat Clear Calc Estimated GFR Glucose POC Capillary Glucose 230 H 216 H Calcium Total Bilirubin AST ALT Alkaline Phosphatase Total Protein Albumin Urine Color Yellow Urine Appearance Cloudy H Urine pH 6.5 Ur Specific [place] 1.014 Urine Protein 3+ H Urine Glucose (UA) Negative Urine Ketones Negative Ur Blood (Man) 3+ H Urine Nitrate Negative Urine Bilirubin Negative Urine Urobilinogen 0.2 Ur Leukocyte Esterase 2+ H Urine RBC >100 H Urine WBC >100 H Ur Squamous Epith Cells None seen Urine Bacteria None seen Urine Casts 0-2 Discharge Plan Discharge Attending physician on discharge: Dinesh Gates Consulting providers: Ponce Mercado Discharging Clinician: Dinesh Gates Anticipated Discharge Date/Time: 02/21/25 15:02 Patient Disposition: Home with Home Health Service Activity: as tolerated Diet: as tolerated Discharge Instructions: Per Care Coordination: [facility] home health ([phone]) will call to resume services at discharge. RN please fax discharge paperwork to [phone] Discharge disposition: Stable Take medications as prescribed. You will be prescribed Macrobid for a Urinary Tract Infection. Restart Eliquis on Tuesday. Monitor blood pressures Take caution while standing, rising, or moving Change positions slowly taking a break between each position change If you standing feel dizzy sit back down and take a break Encouraged to continue with yearly vaccinations Return to the emergency department if he developed sudden shortness of breath, chest pain, nausea, vomiting, upset stomach or intractable diarrhea Return to the emergency department if you develop fever greater than 101.5 Follow-up with the primary care physician within 1-2 weeks [address]. Coles' Office for further evaluation. Thank you for [facility] for your healthcare needs Patient Instructions: Antibiotic Form Patient Language: Stateless Stand Alone Forms: General Discharge Information Follow-up/Referrals: Arely Mujica PA-C [Primary Care Provider] - Javy Coles MD [Physician] - Discharge Medications: New nitrofurantoin monohyd/m-cryst [Macrobid] 100 mg capsule 100 mg PO Q12H 7 Days Qty: 14 0RF Rx Instructions: must administer with a meal/food Continued multivitamin Tablet 1 tablet PO DAILY mecobalamin (vitamin B12) 1,000 mcg tablet,chewable 500 mcg PO DAILY loratadine 10 mg tablet 10 mg PO DAILY diphenhydramine-acetaminophen [Tylenol PM Extra Strength] 25-500 mg tablet 0.5 tablet PO QHS PRN (Reason: pain (scale score 1-3)) Patient Comments: 250mg total cholecalciferol (vitamin D3) 25 mcg (1,000 unit) capsule 5,000 unit PO DAILY (DME) blood-glucose meter [True Metrix Air Glucose Meter] Misc See Rx Instructions .Route Qty: 1 0RF Rx Instructions: use to check blood sugars 3 times daily True Metrix Glucose Test Strip Strip See Rx Instructions .ROUTE .COMPLEX Qty: 300 3RF Rx Instructions: use to check BS 3 times daily(E11.65); Use to check BS 3 times daily; needs 300 for 3 months supply albuterol sulfate 90 mcg/actuation HFA aerosol inhaler 2 puff INHALATION Q6H PRN (Reason: wheezing) magnesium oxide 400 mg (241.3 mg magnesium) tablet 400 mg PO DAILY insulin lispro protamin-lispro [Humalog Mix 75-25 KwikPen] 100 unit/mL (75-25) insulin pen 26 unit subcut BIDWMEAL rosuvastatin 40 mg tablet 40 mg PO QHS RELION/TRUE MICRO LANC 33G MIS See Rx Instructions .ROUTE .COMPLEX Qty: 200 4RF Dose Instruction: USE 1 TO CHECK GLUCOSE TWICE DAILY Rx Instructions: USE 1 TO CHECK GLUCOSE TWICE DAILY (DME) lancets 33 gauge misc See Rx Instructions .ROUTE .MEDSUPPLY Qty: 300 3RF Rx Instructions: use to check BS 3 times daily (DME) pen needle, diabetic [BD Ultra-Fine Short Pen Needle] 31 gauge x 5/16 needle See Rx Instructions .ROUTE .COMPLEX Qty: 180 3RF Dose Instruction: USE WITH INSULIN INJECTIONS TWICE DAILY Rx Instructions: USE WITH INSULIN INJECTIONS TWICE DAILY amlodipine 5 mg tablet 5 mg PO DAILY Qty: 90 0RF escitalopram oxalate 20 mg tablet 20 mg PO DAILY Qty: 90 0RF furosemide 40 mg tablet 20 mg PO DAILY Qty: 90 0RF levothyroxine [Synthroid] 75 mcg tablet 75 mcg PO QAM Qty: 90 1RF Rx Instructions: BRAND ONLY isosorbide mononitrate 30 mg tablet extended release 24 hr 30 mg PO DAILY Qty: 90 0RF Eliquis 5 mg tablet 5 mg PO BID Qty: 180 0RF Anoro Ellipta 62.5-25 mcg/actuation blister with device 1 inh inhalation DAILY Qty: 60 0RF Date of admission: 02/19/25 10:17 Primary Care Provider: Arely Mujicaitting Provider: Irma Lewis Attending physician on admission: Dinesh Gates Condition: Stable Quality VTE Prophylaxis VTE prophylaxis: mechanical ordered Hospitalist MIPS Heart Failure (Exclusion) Patient has history of Heart Transplant or Left Ventricular Assistive Device?: No IF YES, STOP HERE Heart Failure (Qualifier) Patient has current or prior documentation of LVEF less than or equal to 40%, or mod/servere depressed LVSF?: No IF NO, STOP HERE
== END 2025-02-21 16:40 | disposition home health service (06) | DRG 669 ==
PROVIDERS: Student in an Organized Health Care Education/Training Program; Urology; Admitting Provider Family Medicine; PCP Physician Assistant Medical; Visit Provider Physician Assistant
PROC: 0TBB8ZZ Excision of Bladder, Via Natural or Artificial Opening Endoscopic (ICD-10-PCS; principal; 2025-02-20 11:30)
DX: C67.2 Malignant neoplasm of lateral wall of bladder (principal); I13.0 Hypertensive heart and chronic kidney disease with heart failure and stage 1 through stage 4 chronic kidney disease, or unspecified chronic kidney disease; I50.32 Chronic diastolic (congestive) heart failure; Z68.41 Body mass index [BMI] 40.0-44.9, adult; J44.9 Chronic obstructive pulmonary disease, unspecified; I12.9 Hypertensive chronic kidney disease with stage 1 through stage 4 chronic kidney disease, or unspecified chronic kidney disease; N18.32 Chronic kidney disease, stage 3b; E11.22 Type 2 diabetes mellitus with diabetic chronic kidney disease; E11.42 Type 2 diabetes mellitus with diabetic polyneuropathy; E03.9 Hypothyroidism, unspecified; E78.5 Hyperlipidemia, unspecified; K57.30 Diverticulosis of large intestine without perforation or abscess without bleeding; N40.0 Benign prostatic hyperplasia without lower urinary tract symptoms; E66.01 Morbid (severe) obesity due to excess calories; G47.33 Obstructive sleep apnea (adult) (pediatric); F32.A Depression, unspecified; F41.9 Anxiety disorder, unspecified; Z96.653 Presence of artificial knee joint, bilateral; Z96.619 Presence of unspecified artificial shoulder joint; Z86.711 Personal history of pulmonary embolism; Z95.0 Presence of cardiac pacemaker; Z79.01 Long term (current) use of anticoagulants; Z79.4 Long term (current) use of insulin
CPT/HCPCS: 36415; 80048; 80053; 81001; 82948; 85025; 85610; 85730; 87086; 88305; 93005; 94640; 99199; A4248; A9270; C1758; G0378; J0690; J1815; J2704; J3010; J7040; J7120